=== PATIENT | female | born 1970 | race Caucasian/White ===

== ENCOUNTER 2017-12-07 19:25 | Inpatient (IN) | payer MEDICARE, MEDICAID ==
[~2017-12-07] VITALS: Ht 157.5 cm; Wt 51.7 kg
[~2017-12-07 19:25] MED LIST: DULO30CA38 PO; GABA-532 PO; METO10TA3 PO; OMEP40CA37 PO; ONDA8TAB6 PO; SIMV20TA5 PO; TOPI25TA49 PO; ZIPR20CA2 PO
[2017-12-07] MEDS ORDERED: dexamethasone sod phosphate 10mg/ml inj IM STA (19:34)
[2017-12-07] MEDS ORDERED: proCHLORperazine 10 MG/2 ml inj IV ONE (19:35)
[2017-12-07] MEDS ORDERED: normal saline 1000ML IV soln IVB ONE (19:35)
[2017-12-07 19:53] LABS: BASOPHILS % (AUTO) 0.2 % (0-1); EOSINOPHILS # (AUTO) 0.2 X10'3 (0-0.9); HEMATOCRIT 40.5 % (35.0-45.0); HEMOGLOBIN 13.2 g/dl (12.0-16.0); LYMPHOCYTES # (AUTO) 1.5 X10'3 (1.1-4.8); LYMPHOCYTES % (AUTO) 8.1 % (21-51); MEAN CORPUSCULAR HEMOGLOBIN 28.6 PG (27.0-31.0); MEAN CORPUSCULAR HGB CONC 32.6 % (33.0-36.5); MEAN CORPUSCULAR VOLUME 87.9 FL (78-98); MEAN PLATELET VOLUME 7.6 FL (7.4-10.4); MONOCYTES % (AUTO) 5.4 % (2-12); NEUTROPHILS # (AUTO) 15.3 X10'3 (1.8-7.7); NEUTROPHILS % (AUTO) 85.3 % (42-75); PLATELET COUNT 452 X10'3 (140-440); RED CELL DISTRIBUTION WIDTH 15.5 % (11.5-14.5); WHITE BLOOD COUNT 17.9 X10'3 (4.5-11.0)
[2017-12-07 20:11] LABS: ALANINE AMINOTRANSFERASE 25 U/L (12-78); ALBUMIN 3.7 G/DL (3.4-5.0); ALBUMIN/GLOBULIN RATIO 0.8 (1.1-1.5); ALKALINE PHOSPHATASE 84 IU/L (46-116); ANION GAP 13 (8-16); ASPARTATE AMINO TRANSFERASE 20 U/L (10-37); BILIRUBIN,TOTAL 0.5 MG/DL (0.1-1.0); BLOOD UREA NITROGEN 10 MG/DL (7-18); BUN/CREATININE RATIO 9.8 (6.6-38.0); CALCIUM 9.9 MG/DL (8.5-10.1); CHLORIDE 104 MMOL/L (99-107); CREATININE 1.02 MG/DL (0.40-0.90); ETHANOL < 0.010 GM/DL (0.0-0.010); GLUCOSE 307 MG/DL (70-104); LIPASE 75 U/L (73-393); POTASSIUM 3.9 MMOL/L (3.5-5.1); SODIUM 139 MMOL/L (135-145); TOTAL CARBON DIOXIDE 22.2 MMOL/L (24-32); TOTAL PROTEIN 8.4 G/DL (6.4-8.2); eGFR 59 ML/MIN
[2017-12-07 20:54] LABS: URINE HCG NEGATIVE (NEG)
[2017-12-07 20:55] LABS: CLARITY,URINE Clear (Clear); COLOR,URINE Yellow (Yellow); GLUCOSE, URINE >=1000 mg/dl (Neg); KETONES,URINE 40 mg/dl (Neg); LEUKOCYTE ESTERASE ,URINE Negative (Neg); NITRITES, URINE Negative (Neg); OCCULT BLOOD,URINE Moderate (Neg); PROTEIN,URINE Negative (Neg)
[2017-12-07 20:56] LABS: UA COLLECTION TYPE VOIDED
[2017-12-07 21:03] LABS: URINE AMPHETAMINE SCREEN NEGATIVE (Neg); URINE BARBITUATE SCREEN NEGATIVE (Neg); URINE BENZODIAZEPINES SCREEN NEGATIVE (Neg); URINE CANNABINOID SCREEN POSITIVE (Neg); URINE COCAINE SCREEN NEGATIVE (Neg); URINE METHADONE SCREEN NEGATIVE (Neg); URINE OPIATE SCREEN NEGATIVE (Neg); URINE PHENCYCLIDINE SCREEN NEGATIVE (Neg)
[2017-12-07 21:14] LABS: BACTERIA,URINE NONE SEEN /HPF (Neg); MUCUS STRANDS MANY /LPF (Neg); RBC,URINE 0-2 /HPF (0-2); SQUAMOUS EPITHELIAL CELL,UR FEW /LPF (FEW); WBC,URINE NONE SEEN /HPF (0-4)
[2017-12-07] MEDS ORDERED: metroNIDAZOLE-Flagyl 500mg/NS 100 ML IV STA (21:44)
[2017-12-07] MEDS ORDERED: ondansetron/PF 4mg/2ml inj IV ONE (21:45)
[2017-12-07] MEDS ORDERED: ciprofloxacin/D5W 200mg/100mL 100 ML IV ONE (21:45)
[2017-12-07] MEDS ORDERED: levoFLOXACIN-Levaquin 500mg/D5 100 ML IV ONE (22:25)
[2017-12-07] MEDS ORDERED: mag hydrox/Alum hydrox/simeth 30ml oral suspension PO PRN (23:10)
[2017-12-07] MEDS ORDERED: acetaminophen 325mg tablet PO PRN ×2 (23:10)
[2017-12-07] MEDS ORDERED: magnesium hydroxide 30ml (MOM) UD suspension PO PRN (23:10)
[2017-12-07] MEDS: normal saline 1000ml 1,000 ML IV SCH (23:35)
[2017-12-08 00:30] VITALS: BP 149/71
[2017-12-08] MEDS: metoclopramide 5 mg/ml inj IV PRN ×3 (02:47→18:57)
[2017-12-08 05:22] LABS: BASOPHILS % (AUTO) 0.2 % (0-1); EOSINOPHILS # (AUTO) 0.2 X10'3 (0-0.9); EOSINOPHILS % (AUTO) 1.8 % (0-6); HEMATOCRIT 40.8 % (35.0-45.0); HEMOGLOBIN 13.2 g/dl (12.0-16.0); LYMPHOCYTES # (AUTO) 1.2 X10'3 (1.1-4.8); LYMPHOCYTES % (AUTO) 9.8 % (21-51); MEAN CORPUSCULAR HEMOGLOBIN 28.6 PG (27.0-31.0); MEAN CORPUSCULAR HGB CONC 32.4 % (33.0-36.5); MEAN CORPUSCULAR VOLUME 88.2 FL (78-98); MEAN PLATELET VOLUME 7.9 FL (7.4-10.4); MONOCYTES # (AUTO) 0.1 X10'3 (0-0.9); MONOCYTES % (AUTO) 0.7 % (2-12); NEUTROPHILS # (AUTO) 10.6 X10'3 (1.8-7.7); NEUTROPHILS % (AUTO) 87.5 % (42-75); PLATELET COUNT 372 X10'3 (140-440); RED BLOOD COUNT 4.62 X10'6 (4.20-5.60); RED CELL DISTRIBUTION WIDTH 15.9 % (11.5-14.5); WHITE BLOOD COUNT 12.1 X10'3 (4.5-11.0)
[2017-12-08 05:48] LABS: ALBUMIN 3.8 G/DL (3.4-5.0); ANION GAP 13 (8-16); BLOOD UREA NITROGEN 8 MG/DL (7-18); BUN/CREATININE RATIO 9.3 (6.6-38.0); CALCIUM 9.4 MG/DL (8.5-10.1); CHLORIDE 106 MMOL/L (99-107); CREATININE 0.86 MG/DL (0.40-0.90); GLUCOSE 132 MG/DL (70-104); POTASSIUM 3.7 MMOL/L (3.5-5.1); SODIUM 140 MMOL/L (135-145); TOTAL CARBON DIOXIDE 20.7 MMOL/L (24-32); eGFR 71 ML/MIN
[2017-12-08] MEDS ORDERED: FLU VACC QS2017-18 36MOS UP/PF 60 MCG/0.5 ML SYRINGE IMVAC ONE (06:15)
[2017-12-08 06:44] LABS: HEMOGLOBIN A1C 5.5 % (4.5-6.2)
[2017-12-08] MEDS: ondansetron/PF 4mg/2ml inj IV PRN ×3 (07:56→21:11)
[2017-12-08] MEDS: normal saline 1000ml 1,000 ML IV SCH ×2 (07:57→21:11)
[2017-12-08] MEDS: metroNIDAZOLE-Flagyl 500mg/NS 100 ML IV SCH ×2 (07:57→15:47)
[2017-12-08] MEDS: pantoprazole 40mg Tablet.DR PO SCH (07:57)
[2017-12-08 08:00] VITALS: BP 129/70
[2017-12-08 11:00] VITALS: BP 145/77
[2017-12-08 19:00] VITALS: BP 128/64
[2017-12-08] MEDS: levoFLOXACIN-Levaquin 500mg/D5 100 ML IV SCH (21:25)
[2017-12-09] MEDS: metroNIDAZOLE-Flagyl 500mg/NS 100 ML IV SCH ×4 (00:23→23:40)
[2017-12-09 00:30] VITALS: BP 142/67
[2017-12-09] MEDS: metoclopramide 5 mg/ml inj IV PRN ×4 (00:32→22:21)
[2017-12-09] MEDS: ondansetron/PF 4mg/2ml inj IV PRN ×3 (03:44→17:49)
[2017-12-09] MEDS: HYDROmorphone inj. 0.5 MG/0.5 ML DISP.SYRIN IV PRN ×6 (04:34→22:20)
[2017-12-09] MEDS: normal saline 1000ml 1,000 ML IV SCH (05:09)
[2017-12-09 05:47] LABS: BASOPHILS % (AUTO) 0.2 % (0-1); EOSINOPHILS # (AUTO) 0.3 X10'3 (0-0.9); EOSINOPHILS % (AUTO) 1.3 % (0-6); HEMATOCRIT 33.7 % (35.0-45.0); HEMOGLOBIN 11.1 g/dl (12.0-16.0); LYMPHOCYTES % (AUTO) 15.3 % (21-51); MEAN CORPUSCULAR HGB CONC 32.9 % (33.0-36.5); MEAN CORPUSCULAR VOLUME 88.1 FL (78-98); MEAN PLATELET VOLUME 7.9 FL (7.4-10.4); MONOCYTES # (AUTO) 1.6 X10'3 (0-0.9); MONOCYTES % (AUTO) 8.1 % (2-12); NEUTROPHILS # (AUTO) 14.8 X10'3 (1.8-7.7); NEUTROPHILS % (AUTO) 75.1 % (42-75); PLATELET COUNT 386 X10'3 (140-440); RED BLOOD COUNT 3.82 X10'6 (4.20-5.60); RED CELL DISTRIBUTION WIDTH 15.4 % (11.5-14.5); WHITE BLOOD COUNT 19.7 X10'3 (4.5-11.0)
[2017-12-09 06:09] LABS: ALBUMIN 3.4 G/DL (3.4-5.0); ANION GAP 11 (8-16); BLOOD UREA NITROGEN 6 MG/DL (7-18); CALCIUM 8.9 MG/DL (8.5-10.1); CHLORIDE 107 MMOL/L (99-107); CREATININE 0.75 MG/DL (0.40-0.90); GLUCOSE 120 MG/DL (70-104); SODIUM 141 MMOL/L (135-145); TOTAL CARBON DIOXIDE 23.2 MMOL/L (24-32); eGFR 84 ML/MIN
[2017-12-09 06:33] LABS: POTASSIUM 2.9 MMOL/L (3.5-5.1)
[2017-12-09] MEDS ORDERED: potassium Cl 40MEQ/NS 500ml 500 ML IV PRN ×2 (06:45)
[2017-12-09] MEDS: LACTOBACILLUS RHAMNOSUS GG 15 billion unit sprinkle caps PO SCH (06:54)
[2017-12-09] MEDS: pantoprazole 40mg Tablet.DR PO SCH (06:54)
[2017-12-09] MEDS: K and/or MAG REPLACEMENT MC SCH (07:02)
[2017-12-09] MEDS ORDERED: POTASSIUM CL IV PRN (07:20)
[2017-12-09] MEDS ORDERED: [UNRECOGNIZED DRUG - OTHER] IV PRN (07:20)
[2017-12-09] MEDS ORDERED: LIDOCAINE 1% IV PRN (07:20)
[2017-12-09 08:05] VITALS: BP 137/74
[2017-12-09] MEDS: POTASSIUM CL IV PRN ×2 (10:59→15:28)
[2017-12-09] MEDS: [UNRECOGNIZED DRUG - OTHER] IV PRN ×2 (10:59→15:28)
[2017-12-09] MEDS: LIDOCAINE 1% IV PRN ×2 (10:59→15:28)
[2017-12-09 11:49] VITALS: BP_SYST 108; BP_SYST 155; BP_DIAS 60; BP_DIAS 91
[2017-12-09] MEDS: potassium Cl 20mEq in NS 1,000 ML IV SCH (13:01)
[2017-12-09 20:00] VITALS: BP 102/68
[2017-12-09] MEDS: levoFLOXACIN-Levaquin 500mg/D5 100 ML IV SCH (20:00)
[2017-12-10] VITALS: BP 161/81
[2017-12-10] MEDS: ondansetron/PF 4mg/2ml inj IV PRN ×2 (01:15→09:57)
[2017-12-10 02:05] LABS: BASOPHILS % (AUTO) 0.2 % (0-1); EOSINOPHILS # (AUTO) 0.2 X10'3 (0-0.9); EOSINOPHILS % (AUTO) 1.3 % (0-6); HEMATOCRIT 34.3 % (35.0-45.0); HEMOGLOBIN 11.1 g/dl (12.0-16.0); LYMPHOCYTES # (AUTO) 1.5 X10'3 (1.1-4.8); LYMPHOCYTES % (AUTO) 11.1 % (21-51); MEAN CORPUSCULAR HEMOGLOBIN 28.5 PG (27.0-31.0); MEAN CORPUSCULAR HGB CONC 32.4 % (33.0-36.5); MEAN CORPUSCULAR VOLUME 87.8 FL (78-98); MEAN PLATELET VOLUME 7.8 FL (7.4-10.4); MONOCYTES # (AUTO) 0.7 X10'3 (0-0.9); MONOCYTES % (AUTO) 5.2 % (2-12); NEUTROPHILS # (AUTO) 11.3 X10'3 (1.8-7.7); NEUTROPHILS % (AUTO) 82.2 % (42-75); PLATELET COUNT 304 X10'3 (140-440); RED BLOOD COUNT 3.91 X10'6 (4.20-5.60); RED CELL DISTRIBUTION WIDTH 15.7 % (11.5-14.5); WHITE BLOOD COUNT 13.8 X10'3 (4.5-11.0)
[2017-12-10 02:12] LABS: ALBUMIN 3.4 G/DL (3.4-5.0); ANION GAP 11 (8-16); BLOOD UREA NITROGEN 5 MG/DL (7-18); BUN/CREATININE RATIO 7.1 (6.6-38.0); CALCIUM 8.6 MG/DL (8.5-10.1); CHLORIDE 105 MMOL/L (99-107); GLUCOSE 107 MG/DL (70-104); POTASSIUM 3.7 MMOL/L (3.5-5.1); SODIUM 139 MMOL/L (135-145); TOTAL CARBON DIOXIDE 22.7 MMOL/L (24-32); eGFR 90 ML/MIN
[2017-12-10] MEDS: metoclopramide 5 mg/ml inj IV PRN ×2 (05:09→14:59)
[2017-12-10 07:53] VITALS: BP 136/72
[2017-12-10] MEDS: K and/or MAG REPLACEMENT MC SCH (08:00)
[2017-12-10] MEDS: potassium Cl 20mEq in NS 1,000 ML IV SCH ×3 (08:24→23:56)
[2017-12-10] MEDS: metroNIDAZOLE-Flagyl 500mg/NS 100 ML IV SCH ×3 (08:24→23:55)
[2017-12-10] MEDS ORDERED: FLU VACC QS2017-18 36MOS UP/PF 60 MCG/0.5 ML SYRINGE IMVAC ONE (09:00)
[2017-12-10] MEDS: HYDROmorphone inj. 0.5 MG/0.5 ML DISP.SYRIN IV PRN ×3 (10:00→22:06)
[2017-12-10] MEDS: pantoprazole 40mg Tablet.DR PO SCH (10:00)
[2017-12-10] MEDS: LACTOBACILLUS RHAMNOSUS GG 15 billion unit sprinkle caps PO SCH (10:00)
[2017-12-10 11:00] VITALS: BP 106/65
[2017-12-10] MEDS: gabapentin 300mg capsule PO SCH ×2 (13:39→21:47)
[2017-12-10] MEDS ORDERED: neostigmine methylsulfate 1 MG/ML 10ml vial IV ONE (18:15)
[2017-12-10] MEDS: topiramate 25mg tablet PO SCH (19:59)
[2017-12-10 20:00] VITALS: BP 137/76
[2017-12-10] MEDS: metoclopramide 5 mg/ml inj IV SCH (20:14)
[2017-12-10] MEDS: levoFLOXACIN-Levaquin 500mg/D5 100 ML IV SCH (21:48)
[2017-12-11 00:11] VITALS: BP 104/64
[2017-12-11] MEDS: ondansetron/PF 4mg/2ml inj IV PRN ×2 (00:21→09:30)
[2017-12-11] MEDS: HYDROmorphone inj. 0.5 MG/0.5 ML DISP.SYRIN IV PRN ×2 (00:58→20:57)
[2017-12-11] MEDS: potassium Cl 20mEq in NS 1,000 ML IV SCH ×2 (01:20→13:03)
[2017-12-11] MEDS: metoclopramide 5 mg/ml inj IV SCH ×2 (02:17→07:32)
[2017-12-11 05:28] LABS: ALBUMIN 3.4 G/DL (3.4-5.0); ANION GAP 11 (8-16); BLOOD UREA NITROGEN 6 MG/DL (7-18); BUN/CREATININE RATIO 7.5 (6.6-38.0); CALCIUM 8.8 MG/DL (8.5-10.1); CHLORIDE 104 MMOL/L (99-107); GLUCOSE 70 MG/DL (70-104); POTASSIUM 3.5 MMOL/L (3.5-5.1); SODIUM 140 MMOL/L (135-145); TOTAL CARBON DIOXIDE 24.6 MMOL/L (24-32); eGFR 78 ML/MIN
[2017-12-11 05:33] LABS: BASOPHILS # (AUTO) 0.1 X10'3 (0-0.2); BASOPHILS % (AUTO) 0.5 % (0-1); EOSINOPHILS # (AUTO) 0.2 X10'3 (0-0.9); EOSINOPHILS % (AUTO) 1.3 % (0-6); HEMATOCRIT 35.8 % (35.0-45.0); HEMOGLOBIN 11.6 g/dl (12.0-16.0); MEAN CORPUSCULAR HEMOGLOBIN 28.7 PG (27.0-31.0); MEAN CORPUSCULAR HGB CONC 32.3 % (33.0-36.5); MEAN CORPUSCULAR VOLUME 88.8 FL (78-98); MEAN PLATELET VOLUME 7.5 FL (7.4-10.4); MONOCYTES # (AUTO) 0.9 X10'3 (0-0.9); MONOCYTES % (AUTO) 7.1 % (2-12); NEUTROPHILS # (AUTO) 8.9 X10'3 (1.8-7.7); NEUTROPHILS % (AUTO) 68.1 % (42-75); PLATELET COUNT 382 X10'3 (140-440); RED BLOOD COUNT 4.03 X10'6 (4.20-5.60); RED CELL DISTRIBUTION WIDTH 15.3 % (11.5-14.5)
[2017-12-11] MEDS: pantoprazole 40mg Tablet.DR PO SCH (07:32)
[2017-12-11] MEDS: LACTOBACILLUS RHAMNOSUS GG 15 billion unit sprinkle caps PO SCH (07:32)
[2017-12-11] MEDS: metroNIDAZOLE-Flagyl 500mg/NS 100 ML IV SCH ×2 (07:32→16:49)
[2017-12-11] MEDS: duloxetine 30mg CAPSULE.DR PO SCH (07:33)
[2017-12-11] MEDS: topiramate 25mg tablet PO SCH ×2 (07:33→19:30)
[2017-12-11] MEDS: gabapentin 300mg capsule PO SCH ×3 (07:33→21:07)
[2017-12-11] MEDS: K and/or MAG REPLACEMENT MC SCH (07:44)
[2017-12-11 07:52] VITALS: BP 94/62
[2017-12-11 12:30] VITALS: BP 141/76
[2017-12-11] MEDS: proCHLORperazine 10 MG/2 ml inj IV PRN ×2 (13:02→19:20)
[2017-12-11] MEDS ORDERED: proCHLORperazine 10 MG/2 ml inj IV SCH (14:00)
[2017-12-11] MEDS ORDERED: proCHLORperazine 10 MG/2 ml inj IV PRN (14:00)
[2017-12-11] MEDS: metoclopramide 10mg tablet PO SCH ×2 (16:49→21:07)
[2017-12-11 20:00] VITALS: BP 112/65
[2017-12-11] MEDS: levoFLOXACIN-Levaquin 500mg/D5 100 ML IV SCH (21:04)
[2017-12-12] VITALS: BP 99/60
[2017-12-12] MEDS: metroNIDAZOLE-Flagyl 500mg/NS 100 ML IV SCH ×2 (00:25→07:40)
[2017-12-12] MEDS: potassium Cl 20mEq in NS 1,000 ML IV SCH ×3 (05:21→17:20)
[2017-12-12 06:32] LABS: BASOPHILS # (AUTO) 0.1 X10'3 (0-0.2); BASOPHILS % (AUTO) 0.9 % (0-1); EOSINOPHILS # (AUTO) 0.2 X10'3 (0-0.9); EOSINOPHILS % (AUTO) 2.6 % (0-6); HEMATOCRIT 30.8 % (35.0-45.0); HEMOGLOBIN 10.4 g/dl (12.0-16.0); LYMPHOCYTES # (AUTO) 2.6 X10'3 (1.1-4.8); LYMPHOCYTES % (AUTO) 40.3 % (21-51); MEAN CORPUSCULAR HEMOGLOBIN 29.4 PG (27.0-31.0); MEAN CORPUSCULAR VOLUME 86.5 FL (78-98); MEAN PLATELET VOLUME 7.8 FL (7.4-10.4); MONOCYTES # (AUTO) 0.7 X10'3 (0-0.9); MONOCYTES % (AUTO) 10.6 % (2-12); NEUTROPHILS % (AUTO) 45.6 % (42-75); PLATELET COUNT 321 X10'3 (140-440); RED BLOOD COUNT 3.55 X10'6 (4.20-5.60); RED CELL DISTRIBUTION WIDTH 14.5 % (11.5-14.5); WHITE BLOOD COUNT 6.6 X10'3 (4.5-11.0)
[2017-12-12 06:46] LABS: ALBUMIN 2.7 G/DL (3.4-5.0); ANION GAP 11 (8-16); BLOOD UREA NITROGEN 5 MG/DL (7-18); BUN/CREATININE RATIO 6.3 (6.6-38.0); CALCIUM 8.5 MG/DL (8.5-10.1); CHLORIDE 109 MMOL/L (99-107); GLUCOSE 77 MG/DL (70-104); POTASSIUM 3.3 MMOL/L (3.5-5.1); SODIUM 142 MMOL/L (135-145); TOTAL CARBON DIOXIDE 22.1 MMOL/L (24-32); eGFR 78 ML/MIN
[2017-12-12 07:00] VITALS: BP 104/61
[2017-12-12] MEDS: LACTOBACILLUS RHAMNOSUS GG 15 billion unit sprinkle caps PO SCH (07:41)
[2017-12-12] MEDS: duloxetine 30mg CAPSULE.DR PO SCH (07:41)
[2017-12-12] MEDS: gabapentin 300mg capsule PO SCH ×3 (07:41→20:59)
[2017-12-12] MEDS: metoclopramide 10mg tablet PO SCH ×4 (07:41→20:59)
[2017-12-12] MEDS: topiramate 25mg tablet PO SCH ×2 (07:41→19:52)
[2017-12-12] MEDS: pantoprazole 40mg Tablet.DR PO SCH (07:41)
[2017-12-12] MEDS: K and/or MAG REPLACEMENT MC SCH (07:42)
[2017-12-12] MEDS: HYDROmorphone inj. 0.5 MG/0.5 ML DISP.SYRIN IV PRN ×4 (07:48→22:16)
[2017-12-12 11:04] VITALS: BP 93/56
[2017-12-12] MEDS ORDERED: magnesium 4gm in 100ml NS 100 ML IV PRN (14:00)
[2017-12-12] MEDS ORDERED: magnesium Cl slow-release 64mg tablet PO PRN (14:00)
[2017-12-12] MEDS ORDERED: potassium Cl 40MEQ/NS 500ml 500 ML IV PRN ×2 (14:00)
[2017-12-12] MEDS ORDERED: potassium Cl 20 mEq SR tablet PO PRN (14:00)
[2017-12-12] MEDS ORDERED: magnesium 2GM in 50ml NS 50 ML IV PRN (14:00)
[2017-12-12] MEDS: levoFLOXACIN 500mg tablet PO SCH (15:18)
[2017-12-12] MEDS: potassium Cl 20 mEq SR tablet PO PRN ×2 (15:18→19:52)
[2017-12-12] MEDS: metroNIDAZOLE 500mg tablet PO SCH (16:47)
[2017-12-12 18:00] VITALS: BP 91/55
[2017-12-13] VITALS: BP 97/59
[2017-12-13] MEDS: metroNIDAZOLE 500mg tablet PO SCH ×2 (01:16→08:16)
[2017-12-13] MEDS: potassium Cl 20 mEq SR tablet PO PRN (01:16)
[2017-12-13] MEDS: HYDROmorphone inj. 0.5 MG/0.5 ML DISP.SYRIN IV PRN ×3 (01:20→11:16)
[2017-12-13] MEDS: potassium Cl 20mEq in NS 1,000 ML IV SCH (05:17)
[2017-12-13 06:13] LABS: MAGNESIUM 1.8 MG/DL (1.5-2.4); POTASSIUM 4.1 MMOL/L (3.5-5.1)
[2017-12-13 07:00] VITALS: BP 91/51
[2017-12-13] MEDS: K and/or MAG REPLACEMENT MC SCH (08:00)
[2017-12-13] MEDS: gabapentin 300mg capsule PO SCH (08:16)
[2017-12-13] MEDS: pantoprazole 40mg Tablet.DR PO SCH (08:16)
[2017-12-13] MEDS: LACTOBACILLUS RHAMNOSUS GG 15 billion unit sprinkle caps PO SCH (08:16)
[2017-12-13] MEDS: metoclopramide 10mg tablet PO SCH ×2 (08:17→11:23)
[2017-12-13] MEDS: duloxetine 30mg CAPSULE.DR PO SCH (08:17)
[2017-12-13] MEDS: topiramate 25mg tablet PO SCH (08:17)
[2017-12-13] MEDS ORDERED: METO10TA3 PO (10:40)
[2017-12-13 11:00] VITALS: BP 94/52
[2017-12-13] MEDS ORDERED: levoFLOXACIN 500mg tablet PO SCH (11:00)
[2017-12-13] MEDS: levoFLOXACIN 500mg tablet PO SCH (11:16)
== END 2017-12-13 13:00 | disposition home or self-care (01) | DRG 682 ==
LOC: ER 19:26 → ED HOLD 23:09 → SUR 3N 12-08 00:03
PROVIDERS: ADMIT Internal Medicine; ATTEND Family Medicine
DX: N17.9 Acute kidney failure, unspecified (principal); R65.11 Systemic inflammatory response syndrome (SIRS) of non-infectious origin with acute organ dysfunction; K56.7 Ileus, unspecified; K31.84 Gastroparesis; K52.9 Noninfective gastroenteritis and colitis, unspecified; K21.9 Gastro-esophageal reflux disease without esophagitis; E78.00 Pure hypercholesterolemia, unspecified; F41.9 Anxiety disorder, unspecified; G43.909 Migraine, unspecified, not intractable, without status migrainosus; E16.2 Hypoglycemia, unspecified; M54.9 Dorsalgia, unspecified; E78.5 Hyperlipidemia, unspecified; E86.0 Dehydration; E87.6 Hypokalemia; F32.9 Major depressive disorder, single episode, unspecified; G89.29 Other chronic pain; I25.10 Atherosclerotic heart disease of native coronary artery without angina pectoris; J45.909 Unspecified asthma, uncomplicated; F12.90 Cannabis use, unspecified, uncomplicated; Z72.0 Tobacco use; Z90.49 Acquired absence of other specified parts of digestive tract; Z98.51 Tubal ligation status; Z79.899 Other long term (current) drug therapy; Z88.6 Allergy status to analgesic agent; Z88.5 Allergy status to narcotic agent; Z88.8 Allergy status to other drugs, medicaments and biological substances; Z82.3 Family history of stroke; Z82.49 Family history of ischemic heart disease and other diseases of the circulatory system; Z23 Encounter for immunization
CPT/HCPCS: 36415; 74176; 80048; 80053; 80305; 80320; 81001; 81025; 83036; 83605; 83690; 83735; 84132; 85025; 87040; 87070; 96361; 96365; 96368; 96372; 96375; 99285; A6258; A6449; J0744; J0780; J1100; J1170; J1956; J2270; J2405; J2710; J2765; J3480; J3490; J7030; J8597; Q2037

== ENCOUNTER 2018-08-18 16:28 | Emergency (ER) | payer MEDICARE, MEDICAID ==
[~2018-08-18] VITALS: Ht 154.9 cm; Wt 58.0 kg
[~2018-08-18 16:28] MED LIST changes: +FERR134T2 PO; -OMEP40CA37 PO; +ONDA4TAB6 PO; +PANT-47 PO; +SCOP1PAT16 TD; -ZIPR20CA2 PO
[2018-08-18 16:54] LABS: BASOPHILS % (AUTO) 0.3 % (0-1); EOSINOPHILS # (AUTO) 0.3 X10'3 (0-0.9); EOSINOPHILS % (AUTO) 2.5 % (0-6); HEMATOCRIT 42.4 % (35.0-45.0); HEMOGLOBIN 14.3 g/dl (12.0-16.0); LYMPHOCYTES # (AUTO) 2.3 X10'3 (1.1-4.8); LYMPHOCYTES % (AUTO) 17.2 % (21-51); MEAN CORPUSCULAR HEMOGLOBIN 30.8 PG (27.0-31.0); MEAN CORPUSCULAR HGB CONC 33.7 % (33.0-36.5); MEAN CORPUSCULAR VOLUME 91.4 FL (78-98); MEAN PLATELET VOLUME 7.3 FL (7.4-10.4); MONOCYTES # (AUTO) 0.8 X10'3 (0-0.9); MONOCYTES % (AUTO) 6.2 % (2-12); NEUTROPHILS # (AUTO) 9.8 X10'3 (1.8-7.7); NEUTROPHILS % (AUTO) 73.8 % (42-75); PLATELET COUNT 343 X10'3 (140-440); RED BLOOD COUNT 4.64 X10'6 (4.20-5.60); RED CELL DISTRIBUTION WIDTH 13.3 % (11.5-14.5); WHITE BLOOD COUNT 13.3 X10'3 (4.5-11.0)
[2018-08-18] MEDS ORDERED: diphenhydrAMINE 50 mg/ml inj IV ONE (17:00)
[2018-08-18] MEDS ORDERED: ondansetron/PF 4mg/2ml inj IV ONE (17:00)
[2018-08-18] MEDS ORDERED: haloperidol lactate 5mg/ml inj IM ONE (17:00)
[2018-08-18] MEDS ORDERED: normal saline 1000ML IV soln IVB ONE (17:00)
[2018-08-18 17:03] LABS: PROTHROMBIN TIME 10.2 SECONDS (9.0-12.0)
[2018-08-18 17:07] LABS: ALANINE AMINOTRANSFERASE 20 U/L (12-78); ALBUMIN 3.9 G/DL (3.4-5.0); ALKALINE PHOSPHATASE 72 IU/L (46-116); ANION GAP 16 (8-16); ASPARTATE AMINO TRANSFERASE 15 U/L (10-37); BILIRUBIN,TOTAL 0.4 MG/DL (0.1-1.0); BLOOD UREA NITROGEN 13 MG/DL (7-18); BUN/CREATININE RATIO 15.1 (6.6-38.0); CHLORIDE 104 MMOL/L (99-107); CREATININE 0.86 MG/DL (0.40-0.90); GLUCOSE 105 MG/DL (70-104); LIPASE 92 U/L (73-393); POTASSIUM 3.4 MMOL/L (3.5-5.1); SODIUM 141 MMOL/L (135-145); TOTAL CARBON DIOXIDE 21.3 MMOL/L (24-32); TOTAL PROTEIN 7.9 G/DL (6.4-8.2); eGFR 71 ML/MIN
[2018-08-18 17:56] VITALS: BP 119/68
[2018-08-18 18:42] LABS: CLARITY,URINE SLIGHTLY CLOUDY (Clear); GLUCOSE, URINE NEGATIVE (Neg); KETONES,URINE 15 mg/dl (Neg); LEUKOCYTE ESTERASE ,URINE NEGATIVE (Neg); NITRITES, URINE NEGATIVE (Neg); OCCULT BLOOD,URINE SMALL (Neg); PH,URINE 5.5 (4.8-8.0); PROTEIN,URINE TRACE mg/dl (Neg); URINE HCG NEGATIVE (NEG); UROBILINOGEN,URINE 0.2 E.U/dL (0.2-1.0)
[2018-08-18 18:46] LABS: COLOR,URINE DARK YELLOW (Yellow); UA COLLECTION TYPE CLN CATCH MIDSTREAM
[2018-08-18 18:51] LABS: WBC,URINE 0-4 /HPF (0-4)
[2018-08-18 18:52] LABS: BACTERIA,URINE 1+ /HPF (Neg); MUCUS STRANDS MANY /LPF (Neg); SQUAMOUS EPITHELIAL CELL,UR MANY /LPF (FEW)
[2018-08-18 18:53] LABS: HYALINE CASTS 0-3 /LPF (NEGATIVE)
== END 2018-08-18 19:46 | disposition home or self-care (01) ==
LOC: ER 16:28
DX: K31.84 Gastroparesis (principal); R11.2 Nausea with vomiting, unspecified; E11.43 Type 2 diabetes mellitus with diabetic autonomic (poly)neuropathy; G43.909 Migraine, unspecified, not intractable, without status migrainosus; E78.00 Pure hypercholesterolemia, unspecified; J45.909 Unspecified asthma, uncomplicated; G89.29 Other chronic pain; F12.90 Cannabis use, unspecified, uncomplicated; Z90.49 Acquired absence of other specified parts of digestive tract; Z98.890 Other specified postprocedural states; Z98.51 Tubal ligation status; Z88.6 Allergy status to analgesic agent; Z88.8 Allergy status to other drugs, medicaments and biological substances; Z79.899 Other long term (current) drug therapy
CPT/HCPCS: 36415; 80053; 81001; 81025; 83690; 85025; 85610; 96361; 96372; 96374; 96375; 99285; J1200; J1630; J2405; J7030

== ENCOUNTER 2018-09-21 15:04 | Emergency (ER) | payer MEDICARE, MEDICAID ==
[~2018-09-21] VITALS: Ht 154.9 cm; Wt 58.2 kg
[2018-09-21] MEDS ORDERED: ondansetron/PF 4mg/2ml inj IV ONE (15:15)
[2018-09-21] MEDS ORDERED: normal saline 1000ML IV soln IVB ONE (15:15)
[2018-09-21] MEDS ORDERED: metoclopramide 5 mg/ml inj IV ONE (15:15)
[2018-09-21 15:56] LABS: BASOPHILS % (AUTO) 0.4 % (0-1); EOSINOPHILS # (AUTO) 0.2 X10'3 (0-0.9); EOSINOPHILS % (AUTO) 1.9 % (0-6); HEMATOCRIT 41.4 % (35.0-45.0); HEMOGLOBIN 13.5 g/dl (12.0-16.0); LYMPHOCYTES # (AUTO) 2.1 X10'3 (1.1-4.8); LYMPHOCYTES % (AUTO) 18.9 % (21-51); MEAN CORPUSCULAR HEMOGLOBIN 30.1 PG (27.0-31.0); MEAN CORPUSCULAR HGB CONC 32.7 % (33.0-36.5); MEAN CORPUSCULAR VOLUME 91.9 FL (78-98); MEAN PLATELET VOLUME 7.5 FL (7.4-10.4); MONOCYTES # (AUTO) 0.6 X10'3 (0-0.9); MONOCYTES % (AUTO) 5.1 % (2-12); NEUTROPHILS # (AUTO) 8.1 X10'3 (1.8-7.7); NEUTROPHILS % (AUTO) 73.7 % (42-75); PLATELET COUNT 322 X10'3 (140-440)
[2018-09-21 16:18] LABS: ALANINE AMINOTRANSFERASE 15 U/L (12-78); ALBUMIN 3.7 G/DL (3.4-5.0); ALBUMIN/GLOBULIN RATIO 0.9 (1.1-1.5); ALKALINE PHOSPHATASE 71 IU/L (46-116); ANION GAP 13 (8-16); ASPARTATE AMINO TRANSFERASE 15 U/L (10-37); BILIRUBIN,TOTAL 0.4 MG/DL (0.1-1.0); BLOOD UREA NITROGEN 10 MG/DL (7-18); BUN/CREATININE RATIO 11.8 (6.6-38.0); CHLORIDE 108 MMOL/L (99-107); CREATININE 0.85 MG/DL (0.40-0.90); GLUCOSE 98 MG/DL (70-104); LIPASE 84 U/L (73-393); POTASSIUM 3.3 MMOL/L (3.5-5.1); SODIUM 141 MMOL/L (135-145); TOTAL CARBON DIOXIDE 20.5 MMOL/L (24-32); TOTAL PROTEIN 7.7 G/DL (6.4-8.2); eGFR 72 ML/MIN
[2018-09-21 16:36] LABS: CLARITY,URINE SLIGHTLY CLOUDY (Clear); COLOR,URINE YELLOW (Yellow); GLUCOSE, URINE NEGATIVE (Neg); KETONES,URINE 40 mg/dl (Neg); LEUKOCYTE ESTERASE ,URINE NEGATIVE (Neg); NITRITES, URINE NEGATIVE (Neg); OCCULT BLOOD,URINE MODERATE (Neg); PROTEIN,URINE TRACE mg/dl (Neg); UA COLLECTION TYPE CLN CATCH MIDSTREAM; UROBILINOGEN,URINE 0.2 E.U/dL (0.2-1.0)
[2018-09-21 16:41] LABS: MUCUS STRANDS MANY /LPF (Neg); SQUAMOUS EPITHELIAL CELL,UR MANY /LPF (FEW)
[2018-09-21 16:42] LABS: TRANSITIONAL EPI CELLS,URINE FEW /HPF
[2018-09-21 16:43] LABS: BACTERIA,URINE 2+ /HPF (Neg); WBC,URINE 0-4 /HPF (0-4)
[2018-09-21] MEDS ORDERED: morphine 4 MG/ML inj SYRINge IV ONE (17:05)
[2018-09-21 17:33] VITALS: BP 113/71
== END 2018-09-21 17:35 | disposition home or self-care (01) ==
LOC: ER 15:05
DX: E86.0 Dehydration (principal); E11.43 Type 2 diabetes mellitus with diabetic autonomic (poly)neuropathy; K31.84 Gastroparesis; R11.2 Nausea with vomiting, unspecified; R19.7 Diarrhea, unspecified; E78.00 Pure hypercholesterolemia, unspecified; J45.909 Unspecified asthma, uncomplicated; G43.909 Migraine, unspecified, not intractable, without status migrainosus; G89.29 Other chronic pain; Z90.49 Acquired absence of other specified parts of digestive tract; F12.90 Cannabis use, unspecified, uncomplicated; Z88.6 Allergy status to analgesic agent; Z88.8 Allergy status to other drugs, medicaments and biological substances; Z79.899 Other long term (current) drug therapy
CPT/HCPCS: 36415; 80053; 81001; 83690; 85025; 96361; 96374; 96375; 99284; J2270; J2405; J2765

== ENCOUNTER 2018-09-23 08:02 | Emergency (ER) | payer MEDICARE, MEDICAID ==
[~2018-09-23] VITALS: Ht 154.9 cm; Wt 59.0 kg
[2018-09-23] MEDS ORDERED: ondansetron/PF 4mg/2ml inj IV ONE (08:15)
[2018-09-23] MEDS ORDERED: normal saline 1000ML IV soln IVB ONE (08:15)
[2018-09-23] MEDS ORDERED: metoclopramide 5 mg/ml inj IV ONE (08:35)
[2018-09-23 08:40] LABS: URINE HCG NEGATIVE (NEG)
[2018-09-23 08:41] LABS: CLARITY,URINE SLIGHTLY CLOUDY (Clear); COLOR,URINE YELLOW (Yellow); GLUCOSE, URINE NEGATIVE (Neg); KETONES,URINE >=80 mg/dl (Neg); LEUKOCYTE ESTERASE ,URINE NEGATIVE (Neg); NITRITES, URINE NEGATIVE (Neg); OCCULT BLOOD,URINE MODERATE (Neg); PH,URINE 5.5 (4.8-8.0); PROTEIN,URINE TRACE mg/dl (Neg); UA COLLECTION TYPE VOIDED; UROBILINOGEN,URINE 0.2 E.U/dL (0.2-1.0)
[2018-09-23 08:50] LABS: WBC,URINE 0-4 /HPF (0-4)
[2018-09-23 08:50] LABS: BASOPHILS % (AUTO) 0.2 % (0-1); EOSINOPHILS # (AUTO) 0.2 X10'3 (0-0.9); EOSINOPHILS % (AUTO) 1.1 % (0-6); HEMATOCRIT 42.3 % (35.0-45.0); HEMOGLOBIN 13.6 g/dl (12.0-16.0); LYMPHOCYTES # (AUTO) 2.3 X10'3 (1.1-4.8); LYMPHOCYTES % (AUTO) 13.3 % (21-51); MEAN CORPUSCULAR HEMOGLOBIN 29.5 PG (27.0-31.0); MEAN CORPUSCULAR HGB CONC 32.2 % (33.0-36.5); MEAN CORPUSCULAR VOLUME 91.6 FL (78-98); MEAN PLATELET VOLUME 7.5 FL (7.4-10.4); MONOCYTES # (AUTO) 0.8 X10'3 (0-0.9); MONOCYTES % (AUTO) 4.7 % (2-12); NEUTROPHILS # (AUTO) 13.6 X10'3 (1.8-7.7); NEUTROPHILS % (AUTO) 80.7 % (42-75); PLATELET COUNT 333 X10'3 (140-440); RED BLOOD COUNT 4.62 X10'6 (4.20-5.60); RED CELL DISTRIBUTION WIDTH 13.7 % (11.5-14.5); WHITE BLOOD COUNT 16.9 X10'3 (4.5-11.0)
[2018-09-23 08:51] LABS: RBC,URINE 0-2 /HPF (0-2)
[2018-09-23 08:52] LABS: MUCUS STRANDS MANY /LPF (Neg); SQUAMOUS EPITHELIAL CELL,UR MANY /LPF (FEW)
[2018-09-23 08:53] LABS: HYALINE CASTS 0-3 /LPF (NEGATIVE); TRANSITIONAL EPI CELLS,URINE FEW /HPF
[2018-09-23 08:54] LABS: BACTERIA,URINE 2+ /HPF (Neg)
[2018-09-23 09:05] LABS: PROTHROMBIN TIME 10.5 SECONDS (9.0-12.0)
[2018-09-23 09:08] LABS: ALANINE AMINOTRANSFERASE 17 U/L (12-78); ALBUMIN 3.8 G/DL (3.4-5.0); ALKALINE PHOSPHATASE 67 IU/L (46-116); ANION GAP 15 (8-16); ASPARTATE AMINO TRANSFERASE 20 U/L (10-37); BILIRUBIN,TOTAL 0.6 MG/DL (0.1-1.0); BLOOD UREA NITROGEN 11 MG/DL (7-18); BUN/CREATININE RATIO 13.6 (6.6-38.0); CHLORIDE 107 MMOL/L (99-107); CREATININE 0.81 MG/DL (0.40-0.90); GLUCOSE 91 MG/DL (70-104); LIPASE 91 U/L (73-393); POTASSIUM 3.4 MMOL/L (3.5-5.1); SODIUM 140 MMOL/L (135-145); TOTAL CARBON DIOXIDE 17.8 MMOL/L (24-32); TOTAL PROTEIN 7.7 G/DL (6.4-8.2); eGFR 76 ML/MIN
[2018-09-23] MEDS ORDERED: haloperidol lactate 5mg/ml inj IM ONE (09:15)
[2018-09-23] MEDS ORDERED: diphenhydrAMINE 50 mg/ml inj IV ONE (09:15)
[2018-09-23] MEDS ORDERED: PHE25R PR (10:42)
[2018-09-23 10:55] VITALS: BP 102/58
== END 2018-09-23 10:59 | disposition home or self-care (01) ==
LOC: ER 08:02
DX: E11.43 Type 2 diabetes mellitus with diabetic autonomic (poly)neuropathy (principal); K31.84 Gastroparesis; R11.2 Nausea with vomiting, unspecified; R10.10 Upper abdominal pain, unspecified; G43.909 Migraine, unspecified, not intractable, without status migrainosus; E78.00 Pure hypercholesterolemia, unspecified; J45.909 Unspecified asthma, uncomplicated; G89.29 Other chronic pain; F12.90 Cannabis use, unspecified, uncomplicated; Z90.49 Acquired absence of other specified parts of digestive tract; Z98.51 Tubal ligation status; Z98.890 Other specified postprocedural states; Z88.6 Allergy status to analgesic agent; Z88.8 Allergy status to other drugs, medicaments and biological substances; Z79.899 Other long term (current) drug therapy
CPT/HCPCS: 36415; 80053; 81001; 81025; 83690; 85025; 85610; 96372; 96374; 96375; 99284; J1200; J1630; J2405; J2765; J7030; 96361

== ENCOUNTER 2018-10-28 13:20 | Emergency (ER) | payer MEDICARE, MEDICAID ==
[~2018-10-28] VITALS: Ht 154.9 cm; Wt 57.4 kg
[~2018-10-28 13:20] MED LIST changes: +PHE25R PR
[2018-10-28 14:07] LABS: URINE HCG NEGATIVE (NEG)
[2018-10-28 14:10] LABS: CLARITY,URINE CLOUDY (Clear); COLOR,URINE YELLOW (Yellow); GLUCOSE, URINE NEGATIVE (Neg); KETONES,URINE >=80 mg/dl (Neg); LEUKOCYTE ESTERASE ,URINE NEGATIVE (Neg); NITRITES, URINE NEGATIVE (Neg); OCCULT BLOOD,URINE LARGE (Neg); PH,URINE 5.5 (4.8-8.0); PROTEIN,URINE TRACE mg/dl (Neg); UROBILINOGEN,URINE 0.2 E.U/dL (0.2-1.0)
[2018-10-28 14:11] LABS: UA COLLECTION TYPE CLN CATCH MIDSTREAM
[2018-10-28 14:14] LABS: BASOPHILS # (AUTO) 0.1 X10'3 (0-0.2); BASOPHILS % (AUTO) 0.6 % (0-1); EOSINOPHILS # (AUTO) 0.2 X10'3 (0-0.9); EOSINOPHILS % (AUTO) 1.7 % (0-6); HEMATOCRIT 45.7 % (35.0-45.0); LYMPHOCYTES # (AUTO) 2.2 X10'3 (1.1-4.8); LYMPHOCYTES % (AUTO) 21.7 % (21-51); MEAN CORPUSCULAR HEMOGLOBIN 29.9 PG (27.0-31.0); MEAN CORPUSCULAR HGB CONC 32.8 % (33.0-36.5); MEAN CORPUSCULAR VOLUME 91.4 FL (78-98); MEAN PLATELET VOLUME 7.5 FL (7.4-10.4); MONOCYTES # (AUTO) 0.6 X10'3 (0-0.9); MONOCYTES % (AUTO) 5.7 % (2-12); NEUTROPHILS % (AUTO) 70.3 % (42-75); PLATELET COUNT 353 X10'3 (140-440); RED CELL DISTRIBUTION WIDTH 13.8 % (11.5-14.5)
[2018-10-28 14:19] LABS: MUCUS STRANDS MANY /LPF (Neg); SQUAMOUS EPITHELIAL CELL,UR MANY /LPF (FEW)
[2018-10-28 14:20] LABS: BACTERIA,URINE 1+ /HPF (Neg); RBC,URINE 0-2 /HPF (0-2); WBC,URINE 0-4 /HPF (0-4)
[2018-10-28 14:32] LABS: ALANINE AMINOTRANSFERASE 17 U/L (12-78); ALBUMIN 4.4 G/DL (3.4-5.0); ALKALINE PHOSPHATASE 84 IU/L (46-116); ANION GAP 18 (8-16); ASPARTATE AMINO TRANSFERASE 17 U/L (10-37); BILIRUBIN,TOTAL 0.5 MG/DL (0.1-1.0); BLOOD UREA NITROGEN 12 MG/DL (7-18); BUN/CREATININE RATIO 13.3 (6.6-38.0); CALCIUM 9.7 MG/DL (8.5-10.1); CHLORIDE 104 MMOL/L (99-107); GLUCOSE 85 MG/DL (70-104); LIPASE 81 U/L (73-393); POTASSIUM 3.7 MMOL/L (3.5-5.1); SODIUM 139 MMOL/L (135-145); TOTAL CARBON DIOXIDE 17.2 MMOL/L (24-32); TOTAL PROTEIN 8.7 G/DL (6.4-8.2); eGFR 67 ML/MIN
[2018-10-28 14:35] LABS: PROTHROMBIN TIME 10.3 SECONDS (9.0-12.0)
[2018-10-28] MEDS ORDERED: ondansetron/PF 4mg/2ml inj IV ONE (15:45)
[2018-10-28] MEDS ORDERED: metoclopramide 5 mg/ml inj IV ONE (15:45)
[2018-10-28] MEDS ORDERED: diphenhydrAMINE 50 mg/ml inj IV ONE (15:45)
[2018-10-28] MEDS ORDERED: normal saline 1000ML IV soln IVB ONE ×2 (15:45)
[2018-10-28] MEDS ORDERED: magnesium 2GM in 50ml NS 50 ML IV ONE (16:00)
[2018-10-28 18:29] VITALS: BP 113/67
== END 2018-10-28 18:35 | disposition home or self-care (01) ==
LOC: ER 13:21
DX: E11.43 Type 2 diabetes mellitus with diabetic autonomic (poly)neuropathy (principal); K31.84 Gastroparesis; R11.10 Vomiting, unspecified; R10.84 Generalized abdominal pain; G43.909 Migraine, unspecified, not intractable, without status migrainosus; E78.00 Pure hypercholesterolemia, unspecified; J45.909 Unspecified asthma, uncomplicated; G89.29 Other chronic pain; F12.90 Cannabis use, unspecified, uncomplicated; Z90.49 Acquired absence of other specified parts of digestive tract; Z98.890 Other specified postprocedural states; Z98.51 Tubal ligation status; Z88.6 Allergy status to analgesic agent; Z88.8 Allergy status to other drugs, medicaments and biological substances; Z79.899 Other long term (current) drug therapy
CPT/HCPCS: 36415; 80053; 81001; 81025; 82948; 83690; 85025; 85610; 96365; 96366; 96375; 99284; J1200; J2405; J2765; J3475; J7030

== ENCOUNTER 2019-03-28 16:09 | Emergency (ER) | payer MEDICARE, MEDICAID ==
[~2019-03-28] VITALS: Ht 157.5 cm; Wt 55.7 kg
[2019-03-28 17:01] LABS: BASOPHILS # (AUTO) 0.1 X10'3 (0-0.2); BASOPHILS % (AUTO) 0.9 % (0-1); EOSINOPHILS # (AUTO) 0.3 X10'3 (0-0.9); EOSINOPHILS % (AUTO) 3.5 % (0-6); HEMATOCRIT 40.6 % (35.0-45.0); HEMOGLOBIN 13.3 g/dl (12.0-16.0); LYMPHOCYTES % (AUTO) 30.1 % (21-51); MEAN CORPUSCULAR HEMOGLOBIN 30.8 PG (27.0-31.0); MEAN CORPUSCULAR HGB CONC 32.8 g/dL (33.0-36.5); MEAN CORPUSCULAR VOLUME 94.1 FL (78-98); MEAN PLATELET VOLUME 7.6 FL (7.4-10.4); MONOCYTES # (AUTO) 0.8 X10'3 (0-0.9); MONOCYTES % (AUTO) 7.6 % (2-12); NEUTROPHILS # (AUTO) 5.7 X10'3 (1.8-7.7); NEUTROPHILS % (AUTO) 57.9 % (42-75); PLATELET COUNT 318 X10'3 (140-440); RED BLOOD COUNT 4.31 X10'6 (4.20-5.60); RED CELL DISTRIBUTION WIDTH 13.9 % (11.5-14.5); WHITE BLOOD COUNT 9.9 X10'3 (4.5-11.0)
[2019-03-28 17:20] LABS: ALANINE AMINOTRANSFERASE 19 U/L (12-78); ALBUMIN 3.5 G/DL (3.4-5.0); ALBUMIN/GLOBULIN RATIO 0.9 (1.1-1.5); ALKALINE PHOSPHATASE 82 IU/L (46-116); ANION GAP 12 (8-16); ASPARTATE AMINO TRANSFERASE 16 U/L (10-37); BILIRUBIN,TOTAL 0.2 MG/DL (0.1-1.0); BLOOD UREA NITROGEN 8 MG/DL (7-18); BUN/CREATININE RATIO 7.7 (6.6-38.0); CALCIUM 8.8 MG/DL (8.5-10.1); CHLORIDE 103 MMOL/L (99-107); CREATININE 1.04 MG/DL (0.40-0.90); GLUCOSE 144 MG/DL (70-104); POTASSIUM 3.4 MMOL/L (3.5-5.1); SODIUM 139 MMOL/L (135-145); TOTAL CARBON DIOXIDE 23.9 MMOL/L (24-32); TOTAL PROTEIN 7.3 G/DL (6.4-8.2); eGFR 57 ML/MIN
[2019-03-28] MEDS ORDERED: morphine 4 MG/ML inj SYRINge IM ONE (18:10)
[2019-03-28 18:26] VITALS: BP 95/49
== END 2019-03-28 18:29 | disposition home or self-care (01) ==
LOC: ER 16:10
DX: R07.89 Other chest pain (principal); R06.02 Shortness of breath; R11.0 Nausea; R61 Generalized hyperhidrosis; R42 Dizziness and giddiness; E78.00 Pure hypercholesterolemia, unspecified; G43.909 Migraine, unspecified, not intractable, without status migrainosus; E11.9 Type 2 diabetes mellitus without complications; G89.29 Other chronic pain; F17.200 Nicotine dependence, unspecified, uncomplicated; F12.90 Cannabis use, unspecified, uncomplicated; M54.9 Dorsalgia, unspecified; Z90.49 Acquired absence of other specified parts of digestive tract; Z98.51 Tubal ligation status; Z88.6 Allergy status to analgesic agent; Z88.8 Allergy status to other drugs, medicaments and biological substances
CPT/HCPCS: 36415; 71045; 80053; 84484; 85025; 93005; 96372; 99284; J2270

== ENCOUNTER 2019-05-26 11:34 | Emergency (ER) | payer MEDICARE, MEDICAID ==
[~2019-05-26] VITALS: Ht 154.9 cm; Wt 60.0 kg
[2019-05-26] MEDS ORDERED: normal saline 1000ML IV soln IVB ONE (11:45)
[2019-05-26] MEDS ORDERED: diphenhydrAMINE 50 mg/ml inj IV ONE (11:45)
[2019-05-26] MEDS ORDERED: haloperidol lactate 5mg/ml inj IM ONE ×2 (11:45→15:25)
[2019-05-26] MEDS ORDERED: proCHLORperazine 10 MG/2 ml inj IV ONE (11:45)
[2019-05-26 12:15] LABS: BASOPHILS # (AUTO) 0.1 X10'3 (0-0.2); HEMOGLOBIN 15.1 g/dl (12.0-16.0); MEAN CORPUSCULAR HEMOGLOBIN 31.1 PG (27.0-31.0)
[2019-05-26 12:17] LABS: BASOPHILS % (AUTO) 0.2 % (0-1); EOSINOPHILS % (AUTO) 0.2 % (0-6); HEMATOCRIT 45.4 % (35.0-45.0); LYMPHOCYTES # (AUTO) 1.7 X10'3 (1.1-4.8); MEAN CORPUSCULAR HGB CONC 33.1 g/dL (33.0-36.5); MEAN CORPUSCULAR VOLUME 93.8 FL (78-98); MEAN PLATELET VOLUME 7.5 FL (7.4-10.4); MONOCYTES % (AUTO) 4.1 % (2-12); NEUTROPHILS # (AUTO) 21.5 X10'3 (1.8-7.7); NEUTROPHILS % (AUTO) 88.5 % (42-75); PLATELET COUNT 346 X10'3 (140-440); RED BLOOD COUNT 4.84 X10'6 (4.20-5.60); RED CELL DISTRIBUTION WIDTH 13.5 % (11.5-14.5); WHITE BLOOD COUNT 24.2 X10'3 (4.5-11.0)
[2019-05-26 12:23] LABS: ALANINE AMINOTRANSFERASE 21 U/L (12-78); ALBUMIN 4.1 G/DL (3.4-5.0); ALBUMIN/GLOBULIN RATIO 0.9 (1.1-1.5); ALKALINE PHOSPHATASE 86 IU/L (46-116); ANION GAP 17 (8-16); ASPARTATE AMINO TRANSFERASE 24 U/L (10-37); BILIRUBIN,TOTAL 0.6 MG/DL (0.1-1.0); BLOOD UREA NITROGEN 19 MG/DL (7-18); CHLORIDE 103 MMOL/L (99-107); GLUCOSE 198 MG/DL (70-104); LIPASE 63 U/L (73-393); POTASSIUM 3.2 MMOL/L (3.5-5.1); SODIUM 139 MMOL/L (135-145); TOTAL CARBON DIOXIDE 19.3 MMOL/L (24-32); TOTAL PROTEIN 8.5 G/DL (6.4-8.2); eGFR 60 ML/MIN
[2019-05-26 13:27] LABS: PLATELET ESTIMATE NORMAL; TOTAL CELLS COUNTED 100
--- NOTE | 2019-05-26 13:44 | NUR ---
pt states that she cant make urine at this time
[2019-05-26 14:33] LABS: URINE AMPHETAMINE SCREEN NEGATIVE (Neg); URINE BARBITUATE SCREEN NEGATIVE (Neg); URINE BENZODIAZEPINES SCREEN NEGATIVE (Neg); URINE CANNABINOID SCREEN POSITIVE (Neg); URINE COCAINE SCREEN NEGATIVE (Neg); URINE METHADONE SCREEN NEGATIVE (Neg); URINE OPIATE SCREEN NEGATIVE (Neg); URINE PHENCYCLIDINE SCREEN NEGATIVE (Neg)
[2019-05-26 14:42] LABS: ETHANOL < 0.010 GM/DL (0.0-0.010)
[2019-05-26] MEDS ORDERED: LORazepam 2 mg/ml vial IV ONE (15:25)
[2019-05-26] MEDS ORDERED: ondansetron/PF 4mg/2ml inj IV ONE (15:25)
[2019-05-26 15:44] VITALS: BP 120/68
[2019-05-27] MEDS ORDERED: POTA20TA19 PO (15:09)
== END 2019-05-26 16:02 | disposition home or self-care (01) ==
LOC: ER 11:35
DX: G43.A0 Cyclical vomiting, in migraine, not intractable (principal); R19.7 Diarrhea, unspecified; D72.829 Elevated white blood cell count, unspecified; G43.909 Migraine, unspecified, not intractable, without status migrainosus; E78.00 Pure hypercholesterolemia, unspecified; J45.909 Unspecified asthma, uncomplicated; E11.9 Type 2 diabetes mellitus without complications; G89.29 Other chronic pain; F41.9 Anxiety disorder, unspecified; F32.9 Major depressive disorder, single episode, unspecified; F12.90 Cannabis use, unspecified, uncomplicated; Z88.6 Allergy status to analgesic agent; Z90.49 Acquired absence of other specified parts of digestive tract; Z98.51 Tubal ligation status; Z98.890 Other specified postprocedural states; Z88.8 Allergy status to other drugs, medicaments and biological substances; Z79.899 Other long term (current) drug therapy
CPT/HCPCS: 36415; 74176; 80053; 80305; 80320; 83690; 85025; 96361; 96372; 96374; 96375; 99284; J0780; J1200; J1630; J2060; J2405; J7030

== ENCOUNTER 2019-06-04 11:36 | Emergency (ER) | payer MEDICARE, MEDICAID ==
[~2019-06-04] VITALS: Ht 154.9 cm; Wt 60.0 kg
[~2019-06-04 11:36] MED LIST changes: +POTA20TA19 PO
[2019-06-04 13:22] LABS: BASOPHILS # (AUTO) 0.1 X10'3 (0-0.2); BASOPHILS % (AUTO) 0.5 % (0-1); EOSINOPHILS % (AUTO) 0.3 % (0-6); HEMOGLOBIN 17.5 g/dl (12.0-16.0); LYMPHOCYTES # (AUTO) 2.8 X10'3 (1.1-4.8); LYMPHOCYTES % (AUTO) 19.9 % (21-51); MEAN CORPUSCULAR HEMOGLOBIN 31.3 PG (27.0-31.0); MEAN CORPUSCULAR HGB CONC 33.7 g/dL (33.0-36.5); MEAN CORPUSCULAR VOLUME 92.9 FL (78-98); MEAN PLATELET VOLUME 8.4 FL (7.4-10.4); MONOCYTES # (AUTO) 1.3 X10'3 (0-0.9); MONOCYTES % (AUTO) 8.9 % (2-12); NEUTROPHILS % (AUTO) 70.4 % (42-75); PLATELET COUNT 405 X10'3 (140-440); RED BLOOD COUNT 5.59 X10'6 (4.20-5.60); RED CELL DISTRIBUTION WIDTH 13.2 % (11.5-14.5); WHITE BLOOD COUNT 14.2 X10'3 (4.5-11.0)
[2019-06-04 13:30] LABS: ALANINE AMINOTRANSFERASE 30 U/L (12-78); ALBUMIN 4.2 G/DL (3.4-5.0); ALBUMIN/GLOBULIN RATIO 0.9 (1.1-1.5); ALKALINE PHOSPHATASE 76 IU/L (46-116); ANION GAP 17 (8-16); ASPARTATE AMINO TRANSFERASE 25 U/L (10-37); BILIRUBIN,TOTAL 0.7 MG/DL (0.1-1.0); BLOOD UREA NITROGEN 18 MG/DL (7-18); BUN/CREATININE RATIO 18.4 (6.6-38.0); CALCIUM 9.8 MG/DL (8.5-10.1); CHLORIDE 90 MMOL/L (99-107); CREATININE 0.98 MG/DL (0.40-0.90); GLUCOSE 121 MG/DL (70-104); SODIUM 134 MMOL/L (135-145); TOTAL CARBON DIOXIDE 27.4 MMOL/L (24-32); TOTAL PROTEIN 8.7 G/DL (6.4-8.2); eGFR 61 ML/MIN
[2019-06-04 13:33] LABS: POTASSIUM 2.4 MMOL/L (3.5-5.1)
[2019-06-04] MEDS ORDERED: LORazepam 2 mg/ml vial IV ONE (14:05)
[2019-06-04] MEDS ORDERED: diphenhydrAMINE 50 mg/ml inj IV ONE (14:05)
[2019-06-04] MEDS ORDERED: haloperidol lactate 5mg/ml inj IM ONE (14:05)
[2019-06-04] MEDS ORDERED: normal saline 1000ML IV soln IVB ONE ×2 (14:05)
[2019-06-04] MEDS ORDERED: potassium Cl 20 mEq SR tablet PO STA (14:18)
[2019-06-04] MEDS ORDERED: potassium 10mEq/100ml NS w/LIDOcaine (10mg/bag) IV SCH (14:20)
[2019-06-04] MEDS: potassium Cl 10 mEq/100mL bag IV SCH ×2 (14:43→16:02)
[2019-06-04 14:55] LABS: URINE HCG NEGATIVE (NEG)
[2019-06-04 14:59] LABS: CLARITY,URINE CLEAR (Clear); COLOR,URINE YELLOW (Yellow); GLUCOSE, URINE NEGATIVE (Neg); KETONES,URINE >=80 mg/dl (Neg); LEUKOCYTE ESTERASE ,URINE NEGATIVE (Neg); NITRITES, URINE NEGATIVE (Neg); OCCULT BLOOD,URINE SMALL (Neg); PROTEIN,URINE 100 mg/dl (Neg)
[2019-06-04 15:10] LABS: UA COLLECTION TYPE CLN CATCH MIDSTREAM
[2019-06-04 15:11] LABS: BACTERIA,URINE 1+ /HPF (Neg); MUCUS STRANDS MANY /LPF (Neg); RBC,URINE 0-2 /HPF (0-2); SQUAMOUS EPITHELIAL CELL,UR MANY /LPF (FEW)
[2019-06-04 15:30] LABS: LIPASE 79 U/L (73-393)
[2019-06-04] MEDS ORDERED: CEPH500C5 PO (15:53)
[2019-06-04] MEDS ORDERED: POTA20TA19 PO (15:55)
[2019-06-04 17:10] VITALS: BP 141/71
== END 2019-06-04 17:14 | disposition home or self-care (01) ==
LOC: ER 11:36
DX: N39.0 Urinary tract infection, site not specified (principal); R11.2 Nausea with vomiting, unspecified; E86.0 Dehydration; R10.13 Epigastric pain; G43.909 Migraine, unspecified, not intractable, without status migrainosus; E78.00 Pure hypercholesterolemia, unspecified; E11.9 Type 2 diabetes mellitus without complications; G89.29 Other chronic pain; F17.210 Nicotine dependence, cigarettes, uncomplicated; F12.90 Cannabis use, unspecified, uncomplicated; Z90.49 Acquired absence of other specified parts of digestive tract; Z98.890 Other specified postprocedural states; Z98.51 Tubal ligation status; Z88.6 Allergy status to analgesic agent; Z88.8 Allergy status to other drugs, medicaments and biological substances; Z88.1 Allergy status to other antibiotic agents; Z79.899 Other long term (current) drug therapy
CPT/HCPCS: 36415; 80053; 81001; 81025; 83690; 85025; 85610; 96361; 96372; 96374; 96375; 99284; J1200; J1630; J2060; J3480; J7030

== ENCOUNTER 2019-06-22 13:55 | Inpatient (IN) | payer MEDICARE, MEDICAID ==
[~2019-06-22] VITALS: Ht 154.9 cm; Wt 53.0 kg
[~2019-06-22 13:55] MED LIST changes: +CEPH500C5 PO
[2019-06-22] MEDS ORDERED: dexamethasone sod phosphate 10mg/ml inj IV STA (14:09)
[2019-06-22] MEDS ORDERED: normal saline 1000ML IV soln IVB ONE ×2 (14:10→17:00)
[2019-06-22] MEDS ORDERED: metoclopramide 5 mg/ml inj IV ONE (14:10)
[2019-06-22] MEDS ORDERED: LORazepam 2 mg/ml vial IV ONE (14:10)
[2019-06-22 15:07] LABS: BASOPHILS % (AUTO) 0.2 % (0-1); EOSINOPHILS % (AUTO) 0 % (0-6); HEMATOCRIT 44.9 % (35.0-45.0); LYMPHOCYTES # (AUTO) 1.2 X10'3 (1.1-4.8); LYMPHOCYTES % (AUTO) 6.8 % (21-51); MEAN CORPUSCULAR HEMOGLOBIN 31.8 PG (27.0-31.0); MEAN CORPUSCULAR HGB CONC 33.4 g/dL (33.0-36.5); MEAN CORPUSCULAR VOLUME 95.1 FL (78-98); MEAN PLATELET VOLUME 7.2 FL (7.4-10.4); MONOCYTES # (AUTO) 0.5 X10'3 (0-0.9); MONOCYTES % (AUTO) 2.9 % (2-12); NEUTROPHILS # (AUTO) 15.2 X10'3 (1.8-7.7); NEUTROPHILS % (AUTO) 90.1 % (42-75); PLATELET COUNT 337 X10'3 (140-440); RED BLOOD COUNT 4.72 X10'6 (4.20-5.60); RED CELL DISTRIBUTION WIDTH 14.2 % (11.5-14.5); WHITE BLOOD COUNT 16.9 X10'3 (4.5-11.0)
[2019-06-22 15:13] LABS: ALANINE AMINOTRANSFERASE 26 U/L (12-78); ALBUMIN 3.9 G/DL (3.4-5.0); ALBUMIN/GLOBULIN RATIO 0.8 (1.1-1.5); ALKALINE PHOSPHATASE 77 IU/L (46-116); ANION GAP 20 (8-16); ASPARTATE AMINO TRANSFERASE 16 U/L (10-37); BILIRUBIN,TOTAL 0.5 MG/DL (0.1-1.0); BLOOD UREA NITROGEN 14 MG/DL (7-18); BUN/CREATININE RATIO 15.2 (6.6-38.0); CALCIUM 9.9 MG/DL (8.5-10.1); CHLORIDE 102 MMOL/L (99-107); CREATININE 0.92 MG/DL (0.40-0.90); GLUCOSE 223 MG/DL (70-104); LIPASE 54 U/L (73-393); POTASSIUM 3.8 MMOL/L (3.5-5.1); SODIUM 140 MMOL/L (135-145); TOTAL CARBON DIOXIDE 17.7 MMOL/L (24-32); TOTAL PROTEIN 8.7 G/DL (6.4-8.2); eGFR 66 ML/MIN
--- NOTE | 2019-06-22 15:16 | NUR ---
patient unable to void at this time,gia RAMIRES made aware.
--- NOTE | 2019-06-22 15:43 | NUR ---
patient to the bathroom.
[2019-06-22 15:56] LABS: ETHANOL < 0.010 GM/DL (0.0-0.010)
[2019-06-22 16:06] LABS: URINE HCG NEGATIVE (NEG)
[2019-06-22 16:09] LABS: CLARITY,URINE SLIGHTLY CLOUDY (Clear); COLOR,URINE YELLOW (Yellow); GLUCOSE, URINE NEGATIVE (Neg); KETONES,URINE >=80 mg/dl (Neg); LEUKOCYTE ESTERASE ,URINE NEGATIVE (Neg); NITRITES, URINE NEGATIVE (Neg); OCCULT BLOOD,URINE MODERATE (Neg); PH,URINE 5.5 (4.8-8.0); PROTEIN,URINE 100 mg/dl (Neg); UROBILINOGEN,URINE 0.2 E.U/dL (0.2-1.0)
[2019-06-22 16:11] LABS: UA COLLECTION TYPE CLN CATCH MIDSTREAM
[2019-06-22 16:16] LABS: URINE AMPHETAMINE SCREEN NEGATIVE (Neg); URINE BARBITUATE SCREEN NEGATIVE (Neg); URINE BENZODIAZEPINES SCREEN NEGATIVE (Neg); URINE CANNABINOID SCREEN POSITIVE (Neg); URINE COCAINE SCREEN NEGATIVE (Neg); URINE METHADONE SCREEN NEGATIVE (Neg); URINE OPIATE SCREEN NEGATIVE (Neg); URINE PHENCYCLIDINE SCREEN NEGATIVE (Neg)
[2019-06-22 16:21] LABS: HYALINE CASTS 0-3 /LPF (NEGATIVE); MUCUS STRANDS MANY /LPF (Neg); SQUAMOUS EPITHELIAL CELL,UR MODERATE /LPF (FEW)
[2019-06-22 16:23] LABS: BACTERIA,URINE FEW /HPF (Neg); WBC,URINE 0-4 /HPF (0-4)
[2019-06-22] MEDS ORDERED: CefTRIAXone 2gm/D5W 50ml 50 ML IV ONE (17:00)
[2019-06-22] MEDS ORDERED: ONDA4TAB11 PO (17:31)
[2019-06-22] MEDS ORDERED: FERR-97 PO (17:31)
[2019-06-22] MEDS ORDERED: TOPI50TA24 PO (17:33)
[2019-06-22] MEDS ORDERED: METO10TA3 PO (17:34)
[2019-06-22] MEDS ORDERED: HYDR-3686 PO (17:35)
--- NOTE | 2019-06-22 17:45 | NUR ---
dr. chavez at bedside.
[2019-06-22] MEDS ORDERED: magnesium hydroxide 30ml (MOM) UD suspension PO PRN (17:55)
[2019-06-22] MEDS ORDERED: magnesium Cl slow-release 64mg tablet PO PRN (17:55)
[2019-06-22] MEDS ORDERED: HYDROmorphone inj. 0.5 MG/0.5 ML DISP.SYRIN IV PRN (17:55)
[2019-06-22] MEDS ORDERED: magnesium 2GM in 50ml NS 50 ML IV PRN (17:55)
[2019-06-22] MEDS ORDERED: potassium Cl 20 mEq SR tablet PO PRN (17:55)
[2019-06-22] MEDS ORDERED: HYDROmorphone 1 mg/ml syringe IV PRN (17:55)
[2019-06-22] MEDS ORDERED: levoFLOXACIN-Levaquin 500mg/D5 100 ML IV ONE (17:55)
[2019-06-22] MEDS ORDERED: acetaminophen 325mg tablet PO PRN ×2 (17:55)
[2019-06-22] MEDS ORDERED: magnesium 4gm in 100ml NS 100 ML IV PRN (17:55)
[2019-06-22] MEDS ORDERED: HYDROcodone/acetaminophen 5mg/325mg tablet PO PRN (17:55)
[2019-06-22] MEDS ORDERED: potassium CL 10mEq/100ml bag 100 ML IV PRN (17:55)
[2019-06-22] MEDS ORDERED: mag hydrox/Alum hydrox/simeth 30ml oral suspension PO PRN (17:55)
[2019-06-22] MEDS ORDERED: HYDROcodone/acetaminophen 10/325mg tab PO PRN (17:55)
[2019-06-22] MEDS ORDERED: acetaminophen 650mg rectal suppository RC PRN (17:55)
[2019-06-22] MEDS: K and/or MAG REPLACEMENT MC SCH (17:55)
[2019-06-22] MEDS ORDERED: ondansetron/PF 4mg/2ml inj IV ONE (17:55)
[2019-06-22] MEDS ORDERED: PEG 3350/Na sulf,bicarb,Cl/KCl oral sol 4 liter bottle PO ONE (17:55)
--- NOTE | 2019-06-22 18:21 | NUR ---
Patient is sleeping comfortaby in bed at this time.
[2019-06-22] MEDS: normal saline 1000ml 1,000 ML IV SCH (18:38)
[2019-06-22] MEDS: metoclopramide 5 mg/ml inj IV PRN (19:11)
--- NOTE | 2019-06-22 19:11 | NUR ---
Patient became nauseated after sipping her golytely. Will give reglan and attempt again shortly.
--- NOTE | 2019-06-22 19:54 | NUR ---
Dr. West contacted about patient's persistent nausea and vomiting and inability to keep golytely down. 5mg compazine IV ordered now and an additional 5mg compazine IV if she continues to vomit 30 minutes from the time it is given.
[2019-06-22] MEDS ORDERED: proCHLORperazine 10 MG/2 ml inj IV PRN (19:55)
[2019-06-22] MEDS: topiramate 25mg tablet PO SCH (20:00)
[2019-06-22] MEDS: proCHLORperazine 10 MG/2 ml inj IV PRN (20:06)
--- NOTE | 2019-06-22 20:09 | NUR ---
Levaquin being held per MD order to obtain stool sample prior to administration of abx.
--- NOTE | 2019-06-22 20:09 | NUR ---
Patient has had unrelieved Nausea and vomiting, patient given zofran, reglan and compazine per order in attempt to stop active vomiting. Patient continues to vomit at this time. Given dose of 5mg Compazine at 2004 will re eval in 30 min and administer additional dose per Dr West order at that time if patient is has continued episodes of vomiting
[2019-06-22] MEDS ORDERED: proCHLORperazine 10 MG/2 ml inj IV ONE (20:45)
--- NOTE | 2019-06-22 20:55 | NUR ---
I have received report from Tatiana BHATIA and had the opportunity to ask questions and assume patient care.
[2019-06-22 21:00] VITALS: BP 104/77
[2019-06-22] MEDS: gabapentin 300mg capsule PO SCH (21:00)
[2019-06-22] MEDS ORDERED: temazepam 15mg capsule PO PRN (21:00)
[2019-06-23] MEDS: metoclopramide 5 mg/ml inj IV PRN ×2 (02:26→14:05)
[2019-06-23] MEDS: ondansetron/PF 4mg/2ml inj IV PRN (04:24)
[2019-06-23] MEDS ORDERED: proCHLORperazine 10 MG/2 ml inj IV ONE ×2 (05:05)
[2019-06-23 06:25] LABS: BASOPHILS % (AUTO) 0.1 % (0-1); EOSINOPHILS % (AUTO) 0 % (0-6); HEMOGLOBIN 12.7 g/dl (12.0-16.0); LYMPHOCYTES # (AUTO) 1.9 X10'3 (1.1-4.8); LYMPHOCYTES % (AUTO) 14.1 % (21-51); MEAN CORPUSCULAR HEMOGLOBIN 30.7 PG (27.0-31.0); MEAN CORPUSCULAR HGB CONC 32.6 g/dL (33.0-36.5); MEAN CORPUSCULAR VOLUME 94.3 FL (78-98); MEAN PLATELET VOLUME 7.5 FL (7.4-10.4); MONOCYTES % (AUTO) 7.1 % (2-12); NEUTROPHILS # (AUTO) 10.6 X10'3 (1.8-7.7); NEUTROPHILS % (AUTO) 78.7 % (42-75); PLATELET COUNT 294 X10'3 (140-440); RED BLOOD COUNT 4.14 X10'6 (4.20-5.60); RED CELL DISTRIBUTION WIDTH 13.9 % (11.5-14.5); WHITE BLOOD COUNT 13.4 X10'3 (4.5-11.0)
--- NOTE | 2019-06-23 06:26 | NUR ---
Problems reprioritized. Patient report given, questions answered & plan of care reviewed with Eduardo BHATIA.
--- NOTE | 2019-06-23 06:26 | NUR ---
Patient in room ORTH[facility] 4014. I have received report from Lana BHATIA and had the opportunity to ask questions and assume patient care.
--- NOTE | 2019-06-23 06:29 | NUR ---
Unable to administer ordered abxs d/t inability to collect stool sample from patient.
[2019-06-23 06:37] LABS: ALANINE AMINOTRANSFERASE 22 U/L (12-78); ALBUMIN 3.4 G/DL (3.4-5.0); ALBUMIN/GLOBULIN RATIO 0.9 (1.1-1.5); ALKALINE PHOSPHATASE 57 IU/L (46-116); ANION GAP 18 (8-16); ASPARTATE AMINO TRANSFERASE 10 U/L (10-37); BILIRUBIN,TOTAL 0.3 MG/DL (0.1-1.0); BLOOD UREA NITROGEN 5 MG/DL (7-18); BUN/CREATININE RATIO 7.1 (6.6-38.0); CALCIUM 9.1 MG/DL (8.5-10.1); CHLORIDE 105 MMOL/L (99-107); GLUCOSE 119 MG/DL (70-104); MAGNESIUM 1.6 MG/DL (1.5-2.4); PHOSPHORUS 2.2 MG/DL (2.3-4.5); POTASSIUM 3.1 MMOL/L (3.5-5.1); SODIUM 143 MMOL/L (135-145); TOTAL CARBON DIOXIDE 20.2 MMOL/L (24-32); TOTAL PROTEIN 7.4 G/DL (6.4-8.2); eGFR 90 ML/MIN
[2019-06-23] MEDS: normal saline 1000ml 1,000 ML IV SCH ×2 (07:29→13:29)
--- NOTE | 2019-06-23 08:42 | NUR ---
ID: [phone] MESSAGE: RE: [id number] Dariana Tierney Pt still nauseated and vomiting. Zofran, Compazine and Reglan did not help. Pt has not been able to drink any of her prep for colonoscopy today. What else can we give her? Eduardo BHATIA [id number]
[2019-06-23] MEDS: levoFLOXACIN-Levaquin 500mg/D5 100 ML IV SCH (08:58)
[2019-06-23] MEDS: metroNIDAZOLE-Flagyl 500mg/NS 100 ML IV SCH ×4 (08:58→23:16)
[2019-06-23] MEDS: K and/or MAG REPLACEMENT MC SCH (09:12)
--- NOTE | 2019-06-23 09:12 | NUR ---
PAGER ID: [phone] MESSAGE: RE: Fabiola ALEXANDRA [id number] I called Dr. Bruner and he said he hasn't seen the pt today so he has nothing to offer. He will see the pt later today. What do you want to do to help with N/V? Eduardo BHATIA [id number]
[2019-06-23] MEDS: duloxetine 30mg CAPSULE.DR PO SCH (09:13)
[2019-06-23] MEDS: hydrOXYzine 25 MG tablet PO SCH (09:13)
[2019-06-23] MEDS: gabapentin 300mg capsule PO SCH ×3 (09:14→21:00)
[2019-06-23] MEDS: topiramate 25mg tablet PO SCH ×2 (09:14→20:00)
[2019-06-23 10:00] VITALS: BP 139/70
[2019-06-23] MEDS: proCHLORperazine 10 MG/2 ml inj IV PRN ×4 (11:05→23:16)
[2019-06-23 11:51] LABS: C DIFF ANTIGEN NEGATIVE (NEGATIVE); C DIFF SPECIMEN=DIARRHEA? ACCEPTABLE; C DIFFICILE TOXINS A&B NEGATIVE (Neg)
[2019-06-23] MEDS: potassium CL 10mEq/100ml bag 100 ML IV PRN ×2 (13:30→16:25)
--- NOTE | 2019-06-23 17:26 | NUR ---
pharmacy called to let nursing staff know that they are unable to provide lidocaine in iv potassium, pt not able to tolerate po potassium because of her n/v and pt tells nursing staff that iv potassium jeronimo too much therefore pt is refusing to take her potassium replacement at this time, continue to educate and monitor pt
[2019-06-23] MEDS: pantoprazole 40MG/NS 100ML BAG 100 ML IV SCH ×2 (17:41→23:48)
[2019-06-23 18:00] VITALS: BP 131/88
--- NOTE | 2019-06-23 18:20 | NUR ---
Problems reprioritized. Patient report given, questions answered & plan of care reviewed with NAHUN BHATIA.
[2019-06-23] MEDS: metoclopramide 5 mg/ml inj IV SCH (19:54)
[2019-06-23] MEDS: lactobacillus rhamnosus 10,000 MMU CELLS/CAPSULE PO SCH (20:00)
[2019-06-23] MEDS: Neutra Phos packet PO SCH (21:00)
[2019-06-23 22:00] VITALS: BP 132/66
[2019-06-24] VITALS (9 sets, daily range): BP systolic 42–147; BP diastolic 48–80
[2019-06-24] MEDS: metoclopramide 5 mg/ml inj IV SCH ×4 (02:19→21:08)
[2019-06-24] MEDS: ondansetron/PF 4mg/2ml inj IV PRN (03:48)
[2019-06-24] MEDS: pantoprazole 40MG/NS 100ML BAG 100 ML IV SCH ×5 (04:30→21:00)
[2019-06-24] MEDS: normal saline 1000ml 1,000 ML IV SCH ×2 (04:43→09:53)
[2019-06-24] MEDS: proCHLORperazine 10 MG/2 ml inj IV PRN ×3 (05:23→23:16)
[2019-06-24 06:06] LABS: ALANINE AMINOTRANSFERASE 19 U/L (12-78); ALBUMIN 3.4 G/DL (3.4-5.0); ALKALINE PHOSPHATASE 51 IU/L (46-116); ANION GAP 13 (8-16); ASPARTATE AMINO TRANSFERASE 13 U/L (10-37); BILIRUBIN,TOTAL 0.6 MG/DL (0.1-1.0); BLOOD UREA NITROGEN 3 MG/DL (7-18); BUN/CREATININE RATIO 4.2 (6.6-38.0); CALCIUM 8.7 MG/DL (8.5-10.1); CHLORIDE 103 MMOL/L (99-107); CREATININE 0.72 MG/DL (0.40-0.90); GLUCOSE 96 MG/DL (70-104); MAGNESIUM 1.5 MG/DL (1.5-2.4); PHOSPHORUS 2.6 MG/DL (2.3-4.5); SODIUM 140 MMOL/L (135-145); TOTAL CARBON DIOXIDE 23.8 MMOL/L (24-32); TOTAL PROTEIN 6.8 G/DL (6.4-8.2); eGFR 87 ML/MIN
[2019-06-24 06:08] LABS: BASOPHILS % (AUTO) 0.3 % (0-1); EOSINOPHILS % (AUTO) 0.1 % (0-6); HEMATOCRIT 35.7 % (35.0-45.0); HEMOGLOBIN 12.1 g/dl (12.0-16.0); LYMPHOCYTES # (AUTO) 1.8 X10'3 (1.1-4.8); LYMPHOCYTES % (AUTO) 16.4 % (21-51); MEAN CORPUSCULAR HEMOGLOBIN 31.5 PG (27.0-31.0); MEAN CORPUSCULAR HGB CONC 33.8 g/dL (33.0-36.5); MEAN CORPUSCULAR VOLUME 93.1 FL (78-98); MEAN PLATELET VOLUME 7.4 FL (7.4-10.4); MONOCYTES % (AUTO) 9.7 % (2-12); NEUTROPHILS # (AUTO) 7.9 X10'3 (1.8-7.7); NEUTROPHILS % (AUTO) 73.5 % (42-75); PLATELET COUNT 256 X10'3 (140-440); RED BLOOD COUNT 3.83 X10'6 (4.20-5.60); RED CELL DISTRIBUTION WIDTH 14.2 % (11.5-14.5); WHITE BLOOD COUNT 10.8 X10'3 (4.5-11.0)
[2019-06-24 06:11] LABS: POTASSIUM 2.6 MMOL/L (3.5-5.1)
--- NOTE | 2019-06-24 06:37 | NUR ---
Patient report given, questions answered & plan of care reviewed with Nanda BHATIA.
--- NOTE | 2019-06-24 06:40 | NUR ---
Patient in room ORTH[facility] 4014. I have received report from JANNETTE Schwartz and had the opportunity to ask questions and assume patient care.
[2019-06-24] MEDS: potassium CL 10mEq/100ml bag 100 ML IV PRN ×3 (07:59→16:00)
[2019-06-24] MEDS: gabapentin 300mg capsule PO SCH ×3 (08:00→21:07)
[2019-06-24] MEDS: topiramate 25mg tablet PO SCH ×2 (08:00→21:08)
[2019-06-24] MEDS: Neutra Phos packet PO SCH ×3 (08:00→21:09)
[2019-06-24] MEDS: duloxetine 30mg CAPSULE.DR PO SCH (08:00)
[2019-06-24] MEDS: hydrOXYzine 25 MG tablet PO SCH (08:00)
[2019-06-24] MEDS: K and/or MAG REPLACEMENT MC SCH (08:00)
[2019-06-24] MEDS: lactobacillus rhamnosus 10,000 MMU CELLS/CAPSULE PO SCH ×2 (08:00→21:07)
[2019-06-24] MEDS: metroNIDAZOLE-Flagyl 500mg/NS 100 ML IV SCH ×2 (08:13→16:49)
[2019-06-24] MEDS: levoFLOXACIN-Levaquin 500mg/D5 100 ML IV SCH (09:30)
[2019-06-24 12:30] LABS: OCCULT BLOOD STOOL NEGATIVE (Neg)
--- NOTE | 2019-06-24 12:41 | NUR ---
pt to GI lab.
[2019-06-24] MEDS ORDERED: MIDAZolam 5mg/5ml vial ONE (12:49)
[2019-06-24] MEDS ORDERED: fentaNYL/PF 50MCG/1 ML 2ML syringe ONE (12:49)
[2019-06-24] MEDS ORDERED: LIDOcaine Viscous 15ml cup ONE (12:49)
--- NOTE | 2019-06-24 17:21 | NUR ---
Pt c/o pain/tenderness in right upper arm and right forearm IV's throughout the day. Rotated using IV sites with Protonix, IVF, IV abx, and IV K running. Heat pack applied. Pt states it's too tender now. Pt disconnected for IV meds. Pt is a difficult stick and has multiple bruises on arms. PICC RN paged, awaiting call back.
--- NOTE | 2019-06-24 17:24 | NUR ---
VS stable throughout the day. Pt ambulating in room independently throughout the day, safety maintained. c/o nausea throughout the day even after med administration. Pt states ambulating around the unit and taking long showers helps with her nausea. K 2.6. Protocol to hang 10 mEq bags of K x8. Two full bags and a partial 3rd bag given so far d/t pts decreased tolerance of IV K and needing to run the bags slowly even piggybacked to IVF. Pt too nauseous to take PO meds. Upper GI performed today.
--- NOTE | 2019-06-24 18:13 | NUR ---
PIV started to left forearm without difficulty, pt denies wanting second IV at this time, RN notified pt would prob need extended PIV if needed tomorrow still, pt refuses extended piv at this time. DMITRIY BHATIA Addendum: 06/24/19 at 1816 by Yuni Ray RN Amended: Links added.
--- NOTE | 2019-06-24 18:34 | NUR ---
Patient in room [facility]TH[facility] 4014. I have received report from JANNETTE Craft and had the opportunity to ask questions and assume patient care.
[2019-06-24] MEDS: potassium Cl 20 mEq SR tablet PO PRN (21:21)
[2019-06-25] MEDS: pantoprazole 40MG/NS 100ML BAG 100 ML IV SCH ×5 (01:00→23:23)
--- NOTE | 2019-06-25 01:19 | NUR ---
Unable to start 2100 protonix and 0000 due to no 2nd IV access. Three attempts made, patient pulled away 2 times, will attempt again. Unable to start 0000 Flagyl due to limited IV access. Will attempt again and pass note on to dayshift nurse to possibly have PICC nurse start extended line.
[2019-06-25] MEDS: potassium Cl 20 mEq SR tablet PO PRN ×2 (01:33→05:42)
--- NOTE | 2019-06-25 02:08 | NUR ---
Able to hang 0000 [employer] drip.
--- NOTE | 2019-06-25 03:04 | NUR ---
Able to give 0000 flagyl now. New IV placed in right hand by JANNETTE Srivastava.
--- NOTE | 2019-06-25 03:08 | NUR ---
Daytime dose of Flagyl administered by JANNETTE Vee did not run in due to patient not having 2 IV's and IV administration past time able to give. Will dispose of this bag and start 0000 dose now at 0300.
[2019-06-25] MEDS: metoclopramide 5 mg/ml inj IV SCH ×4 (03:13→20:00)
[2019-06-25] MEDS: metroNIDAZOLE-Flagyl 500mg/NS 100 ML IV SCH ×3 (03:13→10:24)
[2019-06-25] MEDS: proCHLORperazine 10 MG/2 ml inj IV PRN ×2 (05:42→19:37)
[2019-06-25] MEDS: normal saline 1000ml 1,000 ML IV SCH ×4 (05:48→22:37)
[2019-06-25 06:00] VITALS: BP 110/57
[2019-06-25 06:22] LABS: ALANINE AMINOTRANSFERASE 14 U/L (12-78); ALBUMIN 2.9 G/DL (3.4-5.0); ALKALINE PHOSPHATASE 45 IU/L (46-116); ANION GAP 7 (8-16); ASPARTATE AMINO TRANSFERASE 13 U/L (10-37); BILIRUBIN,TOTAL 0.7 MG/DL (0.1-1.0); BLOOD UREA NITROGEN 1 MG/DL (7-18); BUN/CREATININE RATIO 1.4 (6.6-38.0); CALCIUM 8.7 MG/DL (8.5-10.1); CHLORIDE 111 MMOL/L (99-107); CREATININE 0.69 MG/DL (0.40-0.90); GLUCOSE 78 MG/DL (70-104); MAGNESIUM 1.7 MG/DL (1.5-2.4); PHOSPHORUS 2.5 MG/DL (2.3-4.5); POTASSIUM 3.6 MMOL/L (3.5-5.1); SODIUM 143 MMOL/L (135-145); TOTAL PROTEIN 5.9 G/DL (6.4-8.2); eGFR > 90 ML/MIN
--- NOTE | 2019-06-25 06:30 | NUR ---
Problems reprioritized. Patient report given, questions answered & plan of care reviewed with JANNETTE Pacheco.
[2019-06-25 06:33] LABS: HEMATOCRIT 33.4 % (35.0-45.0); HEMOGLOBIN 11.4 g/dl (12.0-16.0); LYMPHOCYTES % (AUTO) 40.5 % (21-51); MEAN CORPUSCULAR HEMOGLOBIN 31.8 PG (27.0-31.0); MEAN CORPUSCULAR HGB CONC 34.2 g/dL (33.0-36.5); MEAN CORPUSCULAR VOLUME 93.1 FL (78-98); MEAN PLATELET VOLUME 7.5 FL (7.4-10.4); NEUTROPHILS % (AUTO) 47.7 % (42-75); PLATELET COUNT 243 X10'3 (140-440); RED BLOOD COUNT 3.59 X10'6 (4.20-5.60); RED CELL DISTRIBUTION WIDTH 13.6 % (11.5-14.5); WHITE BLOOD COUNT 8.8 X10'3 (4.5-11.0)
[2019-06-25 06:34] LABS: BASOPHILS # (AUTO) 0.1 X10'3 (0-0.2); BASOPHILS % (AUTO) 0.6 % (0-1); EOSINOPHILS % (AUTO) 0.5 % (0-6); LYMPHOCYTES # (AUTO) 3.6 X10'3 (1.1-4.8); MONOCYTES # (AUTO) 0.9 X10'3 (0-0.9); MONOCYTES % (AUTO) 10.7 % (2-12); NEUTROPHILS # (AUTO) 4.2 X10'3 (1.8-7.7)
[2019-06-25] MEDS: ondansetron/PF 4mg/2ml inj IV PRN ×2 (06:58→18:45)
[2019-06-25] MEDS: gabapentin 300mg capsule PO SCH ×3 (08:00→21:41)
[2019-06-25] MEDS: hydrOXYzine 25 MG tablet PO SCH (08:00)
[2019-06-25] MEDS: K and/or MAG REPLACEMENT MC SCH (08:00)
[2019-06-25] MEDS: lactobacillus rhamnosus 10,000 MMU CELLS/CAPSULE PO SCH ×2 (08:00→21:42)
[2019-06-25] MEDS: Neutra Phos packet PO SCH ×3 (08:00→21:00)
[2019-06-25] MEDS: duloxetine 30mg CAPSULE.DR PO SCH (08:00)
[2019-06-25] MEDS: topiramate 25mg tablet PO SCH ×2 (08:00→21:41)
[2019-06-25 10:00] VITALS: BP 138/57
[2019-06-25] MEDS: levoFLOXACIN-Levaquin 500mg/D5 100 ML IV SCH (12:18)
[2019-06-25] MEDS: diphenhydrAMINE 50 mg/ml inj IV PRN ×2 (12:18→21:39)
[2019-06-25] MEDS: haloperidol lactate 5mg/ml inj IM PRN ×2 (12:19→21:40)
--- NOTE | 2019-06-25 16:59 | NUR ---
PAGER ID: [phone] MESSAGE: Tara Saenz6 Dariana Robertson in [id number]- nausea is better! But her anus is sore from diarrhea yesterday, can we get some topical pain relief please? Tucks pads?
[2019-06-25] MEDS: silver sulfadiazine cream 400gm jar TP SCH (17:15)
[2019-06-25 18:00] VITALS: BP 94/45
--- NOTE | 2019-06-25 18:15 | NUR ---
Patient in room [facility]TH[facility] 4014. I have received report from Tara BHATIA and had the opportunity to ask questions and assume patient care. Checked on patient, she is still nauseous and has emesis bag in her hand. Will continue to monitor closely.
[2019-06-25 22:00] VITALS: BP 118/58
[2019-06-26] MEDS: proCHLORperazine 10 MG/2 ml inj IV PRN (01:27)
[2019-06-26] MEDS: metoclopramide 5 mg/ml inj IV SCH ×4 (02:00→19:23)
[2019-06-26] MEDS: pantoprazole 40MG/NS 100ML BAG 100 ML IV SCH ×6 (04:20→20:25)
[2019-06-26 06:15] LABS: BASOPHILS % (AUTO) 0.6 % (0-1); EOSINOPHILS # (AUTO) 0.1 X10'3 (0-0.9); EOSINOPHILS % (AUTO) 0.7 % (0-6); HEMATOCRIT 35.6 % (35.0-45.0); LYMPHOCYTES # (AUTO) 2.6 X10'3 (1.1-4.8); LYMPHOCYTES % (AUTO) 33.2 % (21-51); MEAN CORPUSCULAR HEMOGLOBIN 31.8 PG (27.0-31.0); MEAN CORPUSCULAR HGB CONC 33.6 g/dL (33.0-36.5); MEAN CORPUSCULAR VOLUME 94.8 FL (78-98); MEAN PLATELET VOLUME 7.5 FL (7.4-10.4); MONOCYTES # (AUTO) 0.7 X10'3 (0-0.9); NEUTROPHILS # (AUTO) 4.3 X10'3 (1.8-7.7); NEUTROPHILS % (AUTO) 56.5 % (42-75); PLATELET COUNT 258 X10'3 (140-440); RED BLOOD COUNT 3.76 X10'6 (4.20-5.60); RED CELL DISTRIBUTION WIDTH 13.8 % (11.5-14.5); WHITE BLOOD COUNT 7.7 X10'3 (4.5-11.0)
[2019-06-26 06:44] LABS: ALANINE AMINOTRANSFERASE 17 U/L (12-78); ALBUMIN 3.1 G/DL (3.4-5.0); ALKALINE PHOSPHATASE 46 IU/L (46-116); ANION GAP 10 (8-16); ASPARTATE AMINO TRANSFERASE 15 U/L (10-37); BILIRUBIN,TOTAL 0.7 MG/DL (0.1-1.0); CALCIUM 8.6 MG/DL (8.5-10.1); CHLORIDE 110 MMOL/L (99-107); GLUCOSE 84 MG/DL (70-104); MAGNESIUM 1.7 MG/DL (1.5-2.4); PHOSPHORUS 3.1 MG/DL (2.3-4.5); POTASSIUM 3.1 MMOL/L (3.5-5.1); SODIUM 142 MMOL/L (135-145); TOTAL CARBON DIOXIDE 21.8 MMOL/L (24-32); TOTAL PROTEIN 6.1 G/DL (6.4-8.2)
--- NOTE | 2019-06-26 06:50 | NUR ---
Problems reprioritized. Patient report given, questions answered & plan of care reviewed with Tara BHATIA and Сергей BHATIA.
[2019-06-26 07:09] LABS: BLOOD UREA NITROGEN 1 MG/DL (7-18); BUN/CREATININE RATIO 1.3 (6.6-38.0); CREATININE 0.75 MG/DL (0.40-0.90); eGFR 83 ML/MIN
[2019-06-26 07:20] VITALS: BP 105/59
[2019-06-26 10:00] VITALS: BP 109/43
[2019-06-26] MEDS: silver sulfadiazine cream 400gm jar TP SCH (10:00)
[2019-06-26] MEDS: topiramate 25mg tablet PO SCH ×2 (10:01→19:23)
[2019-06-26] MEDS: hydrOXYzine 25 MG tablet PO SCH (10:01)
[2019-06-26] MEDS: lactobacillus rhamnosus 10,000 MMU CELLS/CAPSULE PO SCH ×2 (10:01→19:23)
[2019-06-26] MEDS: gabapentin 300mg capsule PO SCH ×3 (10:01→21:11)
[2019-06-26] MEDS: Neutra Phos packet PO SCH ×3 (10:01→21:11)
[2019-06-26] MEDS: duloxetine 30mg CAPSULE.DR PO SCH (10:02)
[2019-06-26] MEDS: normal saline 1000ml 1,000 ML IV SCH ×2 (10:03→20:20)
[2019-06-26] MEDS ORDERED: haloperidol lactate 5mg/ml inj IM PRN (11:20)
[2019-06-26] MEDS ORDERED: diphenhydrAMINE 50 mg/ml inj IV PRN (11:20)
[2019-06-26] MEDS ORDERED: potassium CL 10mEq/100ml bag 100 ML IV PRN (11:50)
[2019-06-26] MEDS ORDERED: magnesium 4gm in 100ml NS 100 ML IV PRN (11:50)
[2019-06-26] MEDS ORDERED: magnesium Cl slow-release 64mg tablet PO PRN (11:50)
[2019-06-26] MEDS ORDERED: potassium Cl 20 mEq SR tablet PO PRN (11:50)
[2019-06-26] MEDS: K and/or MAG REPLACEMENT MC SCH (12:34)
[2019-06-26] MEDS: potassium Cl 20 mEq SR tablet PO PRN ×2 (12:36→19:23)
[2019-06-26 18:00] VITALS: BP 100/55
--- NOTE | 2019-06-26 18:34 | NUR ---
Problems reprioritized. Patient report given, questions answered & plan of care reviewed with Precious BHATIA.
--- NOTE | 2019-06-26 18:45 | NUR ---
Patient in room [facility]TH[facility] 4014. I have received report from Tara Rushing RN and had the opportunity to ask questions and assume patient care.
[2019-06-26 22:00] VITALS: BP 99/45
[2019-06-27] MEDS: pantoprazole 40MG/NS 100ML BAG 100 ML IV SCH ×2 (01:24→06:00)
[2019-06-27] MEDS: metoclopramide 5 mg/ml inj IV SCH ×2 (01:55→08:29)
[2019-06-27] MEDS: potassium Cl 20 mEq SR tablet PO PRN (03:09)
[2019-06-27 05:52] LABS: BASOPHILS # (AUTO) 0.1 X10'3 (0-0.2); BASOPHILS % (AUTO) 0.9 % (0-1); EOSINOPHILS # (AUTO) 0.3 X10'3 (0-0.9); EOSINOPHILS % (AUTO) 3.5 % (0-6); HEMATOCRIT 32.8 % (35.0-45.0); HEMOGLOBIN 11.2 g/dl (12.0-16.0); LYMPHOCYTES # (AUTO) 3.7 X10'3 (1.1-4.8); LYMPHOCYTES % (AUTO) 50.1 % (21-51); MEAN CORPUSCULAR HEMOGLOBIN 32.3 PG (27.0-31.0); MEAN CORPUSCULAR HGB CONC 34.1 g/dL (33.0-36.5); MEAN CORPUSCULAR VOLUME 94.6 FL (78-98); MEAN PLATELET VOLUME 7.6 FL (7.4-10.4); MONOCYTES # (AUTO) 0.5 X10'3 (0-0.9); MONOCYTES % (AUTO) 7.4 % (2-12); NEUTROPHILS # (AUTO) 2.8 X10'3 (1.8-7.7); NEUTROPHILS % (AUTO) 38.1 % (42-75); PLATELET COUNT 254 X10'3 (140-440); RED BLOOD COUNT 3.46 X10'6 (4.20-5.60); RED CELL DISTRIBUTION WIDTH 13.7 % (11.5-14.5); WHITE BLOOD COUNT 7.3 X10'3 (4.5-11.0)
[2019-06-27 06:00] VITALS: BP 96/52
--- NOTE | 2019-06-27 06:20 | NUR ---
Problems reprioritized. Patient report given, questions answered & plan of care reviewed with Marvin BHATIA.
[2019-06-27 06:34] LABS: ALANINE AMINOTRANSFERASE 17 U/L (12-78); ALBUMIN 2.6 G/DL (3.4-5.0); ALBUMIN/GLOBULIN RATIO 0.9 (1.1-1.5); ALKALINE PHOSPHATASE 40 IU/L (46-116); ANION GAP 11 (8-16); ASPARTATE AMINO TRANSFERASE 11 U/L (10-37); BILIRUBIN,TOTAL 0.3 MG/DL (0.1-1.0); BLOOD UREA NITROGEN 2 MG/DL (7-18); BUN/CREATININE RATIO 2.7 (6.6-38.0); CALCIUM 8.4 MG/DL (8.5-10.1); CHLORIDE 110 MMOL/L (99-107); CREATININE 0.74 MG/DL (0.40-0.90); GLUCOSE 77 MG/DL (70-104); MAGNESIUM 1.5 MG/DL (1.5-2.4); PHOSPHORUS 5.4 MG/DL (2.3-4.5); POTASSIUM 3.7 MMOL/L (3.5-5.1); SODIUM 143 MMOL/L (135-145); TOTAL CARBON DIOXIDE 22.2 MMOL/L (24-32); TOTAL PROTEIN 5.4 G/DL (6.4-8.2); eGFR 84 ML/MIN
--- NOTE | 2019-06-27 07:16 | NUR ---
Patient in room [facility]TH[facility] 4014. I have received report from JANNETTE Lang and had the opportunity to ask questions and assume patient care.
[2019-06-27] MEDS: normal saline 1000ml 1,000 ML IV SCH ×2 (07:53→23:58)
[2019-06-27] MEDS: K and/or MAG REPLACEMENT MC SCH (08:00)
[2019-06-27] MEDS: duloxetine 30mg CAPSULE.DR PO SCH (08:28)
[2019-06-27] MEDS: lactobacillus rhamnosus 10,000 MMU CELLS/CAPSULE PO SCH ×2 (08:28→22:01)
[2019-06-27] MEDS: gabapentin 300mg capsule PO SCH ×3 (08:28→22:01)
[2019-06-27] MEDS: topiramate 25mg tablet PO SCH ×2 (08:28→22:01)
[2019-06-27] MEDS: Neutra Phos packet PO SCH ×3 (08:29→21:00)
[2019-06-27] MEDS: hydrOXYzine 25 MG tablet PO SCH (08:29)
[2019-06-27] MEDS: silver sulfadiazine cream 400gm jar TP SCH (08:39)
[2019-06-27 10:00] VITALS: BP 109/53
[2019-06-27] MEDS ORDERED: metoclopramide 10mg tablet PO PRN (10:40)
--- NOTE | 2019-06-27 13:17 | NUR ---
Initial: Pt admit w/ intractable N/V along w/ erosive esophagitis and hx GERD. Pt advanced to regular diet from clears today. Receiving reglan and protonix. PO 0-25% with continued N/V noted slightly improving per MD note. No colitis from CT per GI MD note. LBM 06/24. Ensure Enlive TIDWM added for additional kcal needs given poor PO; MD notified. Pending MD verification prior to sending w/ meals. Will continue to monitor. Rec: 1. continue regular diet 2. ensure enlive TIDWM; pend MD verification prior to send on trays 3. weekly wts Addendum: 06/27/19 at [address] Amended: Links added.
[2019-06-27 18:00] VITALS: BP 93/51
[2019-06-27] MEDS: lactose-reduced food (Ensure Enlive) - 237ml bottle PO SCH (18:00)
--- NOTE | 2019-06-27 18:20 | NUR ---
Orienteer documentation: I have reviewed and agree with all interventions, assessments performed and documented by Radha BHATIA.
--- NOTE | 2019-06-27 18:32 | NUR ---
Problems reprioritized. Patient report given, questions answered & plan of care reviewed with Criss BHATIA.
[2019-06-27 22:00] VITALS: BP_SYST 126; BP_SYST 99; BP_DIAS 51; BP_DIAS 66
[2019-06-27] MEDS: pantoprazole 40mg Tablet.DR PO SCH (22:01)
[2019-06-28] MEDS: normal saline 1000ml 1,000 ML IV SCH (03:53)
--- NOTE | 2019-06-28 06:25 | NUR ---
Problems reprioritized. Patient report given, questions answered & plan of care reviewed with houston Smiley.
[2019-06-28 06:30] VITALS: BP 96/52
[2019-06-28] MEDS: K and/or MAG REPLACEMENT MC SCH (06:41)
[2019-06-28 06:49] LABS: MAGNESIUM 1.6 MG/DL (1.5-2.4); POTASSIUM 3.4 MMOL/L (3.5-5.1)
[2019-06-28] MEDS: lactobacillus rhamnosus 10,000 MMU CELLS/CAPSULE PO SCH (07:45)
[2019-06-28] MEDS: topiramate 25mg tablet PO SCH (07:46)
[2019-06-28] MEDS: gabapentin 300mg capsule PO SCH (07:46)
[2019-06-28] MEDS: duloxetine 30mg CAPSULE.DR PO SCH (07:46)
[2019-06-28] MEDS: hydrOXYzine 25 MG tablet PO SCH (07:46)
[2019-06-28] MEDS: pantoprazole 40mg Tablet.DR PO SCH (07:46)
[2019-06-28] MEDS: Neutra Phos packet PO SCH (07:46)
[2019-06-28] MEDS: lactose-reduced food (Ensure Enlive) - 237ml bottle PO SCH (07:56)
[2019-06-28] MEDS: silver sulfadiazine cream 400gm jar TP SCH (07:56)
[2019-06-28 10:00] VITALS: BP 98/53
[2019-06-28] MEDS ORDERED: METO10TA3 PO (10:20)
--- NOTE | 2019-06-28 11:13 | NUR ---
Follow up appointments and all discharge instructions gone over with pt. She verbalizes understanding. Discharged home with via wc in stable condition.
[2019-06-28] MEDS ORDERED: PANT-47 PO (17:19)
== END 2019-06-28 11:15 | disposition home or self-care (01) | DRG 382 ==
LOC: ER 13:56 → ORTHO 4S 20:39 → CMPBEDREQ 20:41
PROVIDERS: ADMIT Family Medicine; ATTEND Family Medicine
PROC: 0DB58ZX Excision of Esophagus, Via Natural or Artificial Opening Endoscopic, Diagnostic (ICD-10-PCS; principal; 2019-06-24)
DX: K22.10 Ulcer of esophagus without bleeding (principal); K52.9 Noninfective gastroenteritis and colitis, unspecified; E11.43 Type 2 diabetes mellitus with diabetic autonomic (poly)neuropathy; E78.00 Pure hypercholesterolemia, unspecified; E78.5 Hyperlipidemia, unspecified; E87.6 Hypokalemia; F32.9 Major depressive disorder, single episode, unspecified; I34.0 Nonrheumatic mitral (valve) insufficiency; J45.909 Unspecified asthma, uncomplicated; F12.90 Cannabis use, unspecified, uncomplicated; F41.9 Anxiety disorder, unspecified; G43.909 Migraine, unspecified, not intractable, without status migrainosus; F17.210 Nicotine dependence, cigarettes, uncomplicated; G89.29 Other chronic pain; N28.9 Disorder of kidney and ureter, unspecified; K21.0 Gastro-esophageal reflux disease with esophagitis; K31.84 Gastroparesis; K44.9 Diaphragmatic hernia without obstruction or gangrene; Z82.49 Family history of ischemic heart disease and other diseases of the circulatory system; Z86.010 Personal history of colon polyps; Z87.19 Personal history of other diseases of the digestive system; Z88.6 Allergy status to analgesic agent; Z88.5 Allergy status to narcotic agent; Z88.8 Allergy status to other drugs, medicaments and biological substances; Z90.49 Acquired absence of other specified parts of digestive tract; Z98.891 History of uterine scar from previous surgery; Z98.51 Tubal ligation status; Z82.3 Family history of stroke; Z79.899 Other long term (current) drug therapy
CPT/HCPCS: 36415; 43239; 70450; 71045; 76937; 80053; 80305; 80320; 81001; 81025; 82272; 83605; 83690; 83735; 84100; 84132; 84145; 85025; 87040; 87045; 87046; 87081; 87324; 87449; 88305; 89055; 96361; 96365; 96375; 99152; 99285; A4620; C9113; G0378; J0696; J0780; J1100; J1170; J1200; J1630; J1956; J2060; J2250; J2405; J2765; J3010; J3480; J3490; J7030; J7040; J8597; Z7610

== ENCOUNTER 2019-09-06 21:46 | Inpatient (IN) | payer MEDICARE, MEDICAID ==
[~2019-09-06] VITALS: Ht 154.9 cm; Wt 52.0 kg
[~2019-09-06 21:46] MED LIST changes: -CEPH500C5 PO; +FERR-97 PO; -FERR134T2 PO; +HYDR-3686 PO; +ONDA4TAB11 PO; -ONDA4TAB6 PO; -ONDA8TAB6 PO; -PHE25R PR; -POTA20TA19 PO; -SCOP1PAT16 TD; -TOPI25TA49 PO; +TOPI50TA24 PO
[2019-09-06 22:39] LABS: BASOPHILS # (AUTO) 0.1 X10'3 (0-0.2); BASOPHILS % (AUTO) 0.4 % (0-1); EOSINOPHILS % (AUTO) 0 % (0-6); HEMATOCRIT 43.7 % (35.0-45.0); HEMOGLOBIN 14.9 g/dl (12.0-16.0); LYMPHOCYTES # (AUTO) 1.9 X10'3 (1.1-4.8); LYMPHOCYTES % (AUTO) 8.9 % (21-51); MEAN CORPUSCULAR HEMOGLOBIN 31.3 PG (27.0-31.0); MEAN CORPUSCULAR HGB CONC 34.2 g/dL (33.0-36.5); MEAN CORPUSCULAR VOLUME 91.5 FL (78-98); MEAN PLATELET VOLUME 7.6 FL (7.4-10.4); MONOCYTES # (AUTO) 0.6 X10'3 (0-0.9); MONOCYTES % (AUTO) 2.7 % (2-12); PLATELET COUNT 386 X10'3 (140-440); RED BLOOD COUNT 4.77 X10'6 (4.20-5.60); RED CELL DISTRIBUTION WIDTH 12.9 % (11.5-14.5); WHITE BLOOD COUNT 21.6 X10'3 (4.5-11.0)
[2019-09-06 22:49] LABS: ALANINE AMINOTRANSFERASE 24 U/L (12-78); ALBUMIN 4.5 G/DL (3.4-5.0); ALBUMIN/GLOBULIN RATIO 0.9 (1.1-1.5); ALKALINE PHOSPHATASE 84 IU/L (46-116); ANION GAP 17 (8-16); ASPARTATE AMINO TRANSFERASE 14 U/L (10-37); BILIRUBIN,TOTAL 0.5 MG/DL (0.1-1.0); BLOOD UREA NITROGEN 20 MG/DL (7-18); BUN/CREATININE RATIO 18.5 (6.6-38.0); CALCIUM 10.4 MG/DL (8.5-10.1); CHLORIDE 102 MMOL/L (99-107); CREATININE 1.08 MG/DL (0.40-0.90); GLUCOSE 223 MG/DL (70-104); SODIUM 137 MMOL/L (135-145); TOTAL CARBON DIOXIDE 17.7 MMOL/L (24-32); TOTAL PROTEIN 9.5 G/DL (6.4-8.2); eGFR 54 ML/MIN
[2019-09-06] MEDS ORDERED: diphenhydrAMINE 50 mg/ml inj IV ONE (23:55)
[2019-09-06] MEDS ORDERED: metoclopramide 5 mg/ml inj IV ONE (23:55)
[2019-09-06] MEDS ORDERED: morphine 4 MG/ML inj SYRINge IV ONE (23:55)
[2019-09-07] MEDS ORDERED: normal saline 1000ML IV soln IVB ONE (01:25)
[2019-09-07] MEDS ORDERED: haloperidol lactate 5mg/ml inj IM ONE (01:40)
--- NOTE | 2019-09-07 03:00 | NUR ---
pt up to bsc to void and provide ua. assisted by family member. reprots pain to abdomen of 6 out of 10. vss.
[2019-09-07] MEDS ORDERED: PANT40TA4 PO (03:20)
[2019-09-07] MEDS ORDERED: METO-292 PO (03:20)
[2019-09-07 03:25] LABS: COLOR,URINE YELLOW (Yellow); GLUCOSE, URINE NEGATIVE (Neg); KETONES,URINE >=80 mg/dl (Neg); LEUKOCYTE ESTERASE ,URINE NEGATIVE (Neg); NITRITES, URINE NEGATIVE (Neg); OCCULT BLOOD,URINE MODERATE (Neg); PROTEIN,URINE 100 mg/dl (Neg); UROBILINOGEN,URINE 0.2 E.U/dL (0.2-1.0)
[2019-09-07 03:30] LABS: CLARITY,URINE SLIGHTLY CLOUDY (Clear); UA COLLECTION TYPE OTHER
[2019-09-07 03:33] LABS: BACTERIA,URINE FEW /HPF (Neg); SQUAMOUS EPITHELIAL CELL,UR FEW /LPF (FEW); WBC,URINE 0-4 /HPF (0-4)
[2019-09-07 03:34] LABS: FINE GRANULAR CAST 0-3 /LPF (NEGATIVE); MUCUS STRANDS MODERATE /LPF (Neg)
[2019-09-07] MEDS ORDERED: magnesium 2GM in 50ml NS 50 ML IV PRN (03:55)
[2019-09-07] MEDS ORDERED: docusate sod 100mg capsule PO PRN (03:55)
[2019-09-07] MEDS ORDERED: potassium CL 10mEq/100ml bag 100 ML IV PRN ×2 (03:55)
[2019-09-07] MEDS ORDERED: magnesium 4gm in 100ml NS 100 ML IV PRN (03:55)
[2019-09-07] MEDS ORDERED: acetaminophen 325mg tablet PO PRN (03:55)
[2019-09-07] MEDS ORDERED: metoclopramide 5 mg/ml inj IV PRN (03:55)
[2019-09-07] MEDS ORDERED: mag hydrox/Alum hydrox/simeth 30ml oral suspension PO PRN (03:55)
[2019-09-07 04:21] LABS: ABG BASE EXCESS -5.7 mmol/L (-2.0-3.0); ABG HCO3 17.7 mmol/L (22.0-26.0); ABG OXYGEN SATURATION 96.9 % (95-98); ABG PCO2 (T) 28.5 mmHg (35.0-45.0); ABG PH (T) 7.409 (7.350-7.450); ABG PO2 (T) 92.4 mmHg (83-108); FCOHb 1.1 % (0.5-1.5); FMetHb 0.3 % (0.3-1.12); FO2Hb 95.5 % (94-100); PATIENT TEMPERATURE 36.6; RESPIRATORY RATE (OBSERVED) 20 b/min; TOTAL HEMOGLOBIN 13.7 G/dl (12.0-16.0)
--- NOTE | 2019-09-07 04:35 | NUR ---
Received report from JANNETTE Velez. Awaiting patient arrival to the floor.
--- NOTE | 2019-09-07 04:50 | NUR ---
Patient arrived to the floor via gurney. Placed in room 360B. Patient is awake and alert on room air, in no apparent distress. Call light and items of frequent use within reach. Will continue to monitor.
[2019-09-07 05:00] VITALS: BP 142/68
[2019-09-07] MEDS: normal saline 1000ml 1,000 ML IV SCH ×3 (05:04→16:30)
[2019-09-07] MEDS: pantoprazole 40MG/NS 100ML BAG 100 ML IV SCH ×5 (05:07→21:00)
--- NOTE | 2019-09-07 06:10 | NUR ---
Patient in room [facility] 360. I have received report from JANNETTE Smith and had the opportunity to ask questions and assume patient care.
--- NOTE | 2019-09-07 06:20 | NUR ---
Problems reprioritized. Patient report given, questions answered & plan of care reviewed with JANNETTE Fraga.
[2019-09-07 07:00] VITALS: BP 141/61
[2019-09-07] MEDS: K and/or MAG REPLACEMENT MC SCH (07:42)
[2019-09-07] MEDS: enoxaparin 40mg/0.4ml syringe SQ SCH (09:06)
[2019-09-07] MEDS: ondansetron/PF 4mg/2ml inj IV PRN ×3 (09:49→22:45)
[2019-09-07 10:54] LABS: HEMOGLOBIN A1C 5.3 % (4.5-6.2)
[2019-09-07 11:30] VITALS: BP 151/69
[2019-09-07] MEDS: diphenhydrAMINE 50 mg/ml inj IV PRN (11:45)
[2019-09-07] MEDS: metoclopramide 5 mg/ml inj IV SCH ×2 (13:55→20:11)
[2019-09-07] MEDS: LORazepam 2 mg/ml vial IV SCH ×2 (13:55→20:16)
--- NOTE | 2019-09-07 18:30 | NUR ---
Problems reprioritized. Patient report given, questions answered & plan of care reviewed with JANNETTE Schuster.
--- NOTE | 2019-09-07 18:42 | NUR ---
Patient in room [facility] 360. I have received report from JANNETTE Fraga and had the opportunity to ask questions and assume patient care.
[2019-09-07 20:00] VITALS: BP 135/52
[2019-09-08] VITALS: BP 142/67
[2019-09-08] MEDS: pantoprazole 40MG/NS 100ML BAG 100 ML IV SCH ×5 (01:09→18:09)
[2019-09-08] MEDS: LORazepam 2 mg/ml vial IV SCH ×4 (02:51→22:28)
[2019-09-08] MEDS: metoclopramide 5 mg/ml inj IV SCH ×4 (02:54→22:28)
[2019-09-08] MEDS: diphenhydrAMINE 50 mg/ml inj IV PRN ×2 (02:56→16:08)
[2019-09-08] MEDS: normal saline 1000ml 1,000 ML IV SCH ×2 (04:29→18:09)
[2019-09-08] MEDS: ondansetron/PF 4mg/2ml inj IV PRN ×3 (05:19→18:49)
[2019-09-08 05:58] LABS: BASOPHILS % (AUTO) 0.3 % (0-1); EOSINOPHILS % (AUTO) 0 % (0-6); HEMATOCRIT 37.3 % (35.0-45.0); HEMOGLOBIN 12.7 g/dl (12.0-16.0); LYMPHOCYTES # (AUTO) 2.9 X10'3 (1.1-4.8); MEAN CORPUSCULAR VOLUME 91.2 FL (78-98); MEAN PLATELET VOLUME 7.8 FL (7.4-10.4); MONOCYTES # (AUTO) 1.1 X10'3 (0-0.9); MONOCYTES % (AUTO) 7.7 % (2-12); NEUTROPHILS # (AUTO) 10.4 X10'3 (1.8-7.7); PLATELET COUNT 300 X10'3 (140-440); RED BLOOD COUNT 4.09 X10'6 (4.20-5.60); RED CELL DISTRIBUTION WIDTH 12.9 % (11.5-14.5); WHITE BLOOD COUNT 14.5 X10'3 (4.5-11.0)
[2019-09-08] MEDS ORDERED: haloperidol lactate 5mg/ml inj IM ONE ×2 (06:00→06:50)
[2019-09-08 06:20] LABS: ALANINE AMINOTRANSFERASE 20 U/L (12-78); ALBUMIN 3.8 G/DL (3.4-5.0); ALBUMIN/GLOBULIN RATIO 0.9 (1.1-1.5); ANION GAP 15 (8-16); ASPARTATE AMINO TRANSFERASE 25 U/L (10-37); BILIRUBIN,TOTAL 0.6 MG/DL (0.1-1.0); BLOOD UREA NITROGEN 7 MG/DL (7-18); BUN/CREATININE RATIO 8.2 (6.6-38.0); CHLORIDE 103 MMOL/L (99-107); CREATININE 0.85 MG/DL (0.40-0.90); GLUCOSE 91 MG/DL (70-104); MAGNESIUM 1.7 MG/DL (1.5-2.4); POTASSIUM 3.2 MMOL/L (3.5-5.1); SODIUM 138 MMOL/L (135-145); TOTAL CARBON DIOXIDE 20.3 MMOL/L (24-32); eGFR 72 ML/MIN
--- NOTE | 2019-09-08 06:20 | NUR ---
Problems reprioritized. Patient report given, questions answered & plan of care reviewed with JANNETTE Fraga.
[2019-09-08 06:21] LABS: ALKALINE PHOSPHATASE 60 IU/L (46-116)
[2019-09-08 06:30] VITALS: BP 153/67
--- NOTE | 2019-09-08 07:13 | NUR ---
Respirations before admin of Haldol 12 Addendum: 09/08/19 at 0714 by Amelia REYNOLDS Amended: Links added.
[2019-09-08] MEDS: K and/or MAG REPLACEMENT MC SCH (07:21)
--- NOTE | 2019-09-08 07:33 | NUR ---
Patient in room [facility] 360. I have received report from JANNETTE Schuster and had the opportunity to ask questions and assume patient care.
[2019-09-08] MEDS: enoxaparin 40mg/0.4ml syringe SQ SCH (08:06)
[2019-09-08] MEDS: potassium Cl 20 mEq SR tablet PO PRN ×3 (08:06→16:06)
[2019-09-08 11:30] VITALS: BP 132/64
[2019-09-08] MEDS: morphine 2 MG/ML inj. syringe IV PRN (12:55)
[2019-09-08 16:26] VITALS: BP 140/78
--- NOTE | 2019-09-08 18:10 | NUR ---
Problems reprioritized. Patient report given, questions answered & plan of care reviewed with JANNETTE Mckeon.
--- NOTE | 2019-09-08 18:46 | NUR ---
Patient in room [facility] 360. I have received report from JANNETTE Fraga and had the opportunity to ask questions and assume patient care.
[2019-09-08 20:00] VITALS: BP 122/77
[2019-09-09] VITALS: BP 96/52
[2019-09-09] MEDS: LORazepam 2 mg/ml vial IV SCH ×2 (01:44→08:29)
[2019-09-09] MEDS: metoclopramide 5 mg/ml inj IV SCH ×2 (01:44→08:28)
[2019-09-09] MEDS: pantoprazole 40MG/NS 100ML BAG 100 ML IV SCH ×3 (01:45→08:30)
[2019-09-09] MEDS: normal saline 1000ml 1,000 ML IV SCH (05:21)
[2019-09-09 05:54] LABS: BASOPHILS # (AUTO) 0.1 X10'3 (0-0.2); BASOPHILS % (AUTO) 0.8 % (0-1); EOSINOPHILS # (AUTO) 0.1 X10'3 (0-0.9); EOSINOPHILS % (AUTO) 0.8 % (0-6); HEMOGLOBIN 11.4 g/dl (12.0-16.0); LYMPHOCYTES # (AUTO) 3.7 X10'3 (1.1-4.8); LYMPHOCYTES % (AUTO) 46.2 % (21-51); MEAN CORPUSCULAR HEMOGLOBIN 31.4 PG (27.0-31.0); MEAN CORPUSCULAR HGB CONC 34.4 g/dL (33.0-36.5); MEAN CORPUSCULAR VOLUME 91.2 FL (78-98); MEAN PLATELET VOLUME 7.4 FL (7.4-10.4); MONOCYTES # (AUTO) 0.9 X10'3 (0-0.9); MONOCYTES % (AUTO) 11.1 % (2-12); NEUTROPHILS # (AUTO) 3.3 X10'3 (1.8-7.7); NEUTROPHILS % (AUTO) 41.1 % (42-75); PLATELET COUNT 227 X10'3 (140-440); RED BLOOD COUNT 3.62 X10'6 (4.20-5.60); RED CELL DISTRIBUTION WIDTH 12.9 % (11.5-14.5)
[2019-09-09 06:02] LABS: ANION GAP 12 (8-16); BILIRUBIN,TOTAL 0.7 MG/DL (0.1-1.0); BLOOD UREA NITROGEN 6 MG/DL (7-18); BUN/CREATININE RATIO 7.2 (6.6-38.0); CALCIUM 8.9 MG/DL (8.5-10.1); CHLORIDE 105 MMOL/L (99-107); CREATININE 0.83 MG/DL (0.40-0.90); GLUCOSE 77 MG/DL (70-104); MAGNESIUM 1.7 MG/DL (1.5-2.4); SODIUM 141 MMOL/L (135-145); TOTAL CARBON DIOXIDE 23.8 MMOL/L (24-32); eGFR 74 ML/MIN
[2019-09-09 06:03] LABS: ALANINE AMINOTRANSFERASE 19 U/L (12-78); ALBUMIN 3.2 G/DL (3.4-5.0); ALBUMIN/GLOBULIN RATIO 0.9 (1.1-1.5); ALKALINE PHOSPHATASE 48 IU/L (46-116); ASPARTATE AMINO TRANSFERASE 24 U/L (10-37); TOTAL PROTEIN 6.6 G/DL (6.4-8.2)
[2019-09-09 06:30] VITALS: BP 117/53
--- NOTE | 2019-09-09 06:40 | NUR ---
Patient in room [facility] 360. I have received report from JANNETTE Mckeon and had the opportunity to ask questions and assume patient care.
--- NOTE | 2019-09-09 06:51 | NUR ---
Problems reprioritized. Patient report given, questions answered & plan of care reviewed with JANNETTE Fraga.
[2019-09-09] MEDS: K and/or MAG REPLACEMENT MC SCH (07:31)
[2019-09-09] MEDS: enoxaparin 40mg/0.4ml syringe SQ SCH (08:29)
[2019-09-09] MEDS: potassium Cl 20 mEq SR tablet PO PRN ×3 (08:30→17:00)
[2019-09-09] MEDS ORDERED: FLU VACC QS2019-20 36MOS UP/PF 60 MCG/0.5 ML SYRINGE IMVAC ONE (10:00)
[2019-09-09 11:00] VITALS: BP 117/53
[2019-09-09] MEDS ORDERED: LORazepam 2 mg/ml vial IV PRN (13:10)
[2019-09-09] MEDS ORDERED: metoclopramide 5 mg/ml inj IV PRN (13:15)
[2019-09-09] MEDS: acetaminophen 325mg tablet PO PRN ×2 (15:40→22:40)
--- NOTE | 2019-09-09 17:55 | NUR ---
Student documentation: I have reviewed all interventions, assessments performed and documented by Ashley Granados
--- NOTE | 2019-09-09 18:20 | NUR ---
Patient in room [facility] 360. I have received report from Philly BHATIA and had the opportunity to ask questions and assume patient care.
--- NOTE | 2019-09-09 18:35 | NUR ---
Problems reprioritized. Patient report given, questions answered & plan of care reviewed with JANNETTE Diez.
[2019-09-09] MEDS: morphine 2 MG/ML inj. syringe IV PRN (19:16)
[2019-09-09 20:00] VITALS: BP 107/55
[2019-09-10] VITALS: BP 101/54
[2019-09-10 06:20] LABS: BASOPHILS # (AUTO) 0.1 X10'3 (0-0.2); BASOPHILS % (AUTO) 0.9 % (0-1); EOSINOPHILS # (AUTO) 0.2 X10'3 (0-0.9); EOSINOPHILS % (AUTO) 2.3 % (0-6); HEMATOCRIT 37.6 % (35.0-45.0); HEMOGLOBIN 12.7 g/dl (12.0-16.0); LYMPHOCYTES # (AUTO) 2.7 X10'3 (1.1-4.8); LYMPHOCYTES % (AUTO) 35.3 % (21-51); MEAN CORPUSCULAR HEMOGLOBIN 31.1 PG (27.0-31.0); MEAN CORPUSCULAR HGB CONC 33.8 g/dL (33.0-36.5); MEAN CORPUSCULAR VOLUME 92.3 FL (78-98); MEAN PLATELET VOLUME 7.7 FL (7.4-10.4); MONOCYTES # (AUTO) 0.9 X10'3 (0-0.9); MONOCYTES % (AUTO) 11.4 % (2-12); NEUTROPHILS # (AUTO) 3.9 X10'3 (1.8-7.7); NEUTROPHILS % (AUTO) 50.1 % (42-75); PLATELET COUNT 250 X10'3 (140-440); RED BLOOD COUNT 4.08 X10'6 (4.20-5.60); RED CELL DISTRIBUTION WIDTH 12.9 % (11.5-14.5); WHITE BLOOD COUNT 7.8 X10'3 (4.5-11.0)
--- NOTE | 2019-09-10 06:30 | NUR ---
Patient in room RU[facility] 360. I have received report from Rg BHATIA and had the opportunity to ask questions and assume patient care.
--- NOTE | 2019-09-10 06:31 | NUR ---
Problems reprioritized. Patient report given, questions answered & plan of care reviewed with Librado BHATIA.
[2019-09-10 06:37] LABS: ALANINE AMINOTRANSFERASE 19 U/L (12-78); ALBUMIN 3.5 G/DL (3.4-5.0); ALKALINE PHOSPHATASE 50 IU/L (46-116); ANION GAP 5 (8-16); ASPARTATE AMINO TRANSFERASE 17 U/L (10-37); BILIRUBIN,TOTAL 0.5 MG/DL (0.1-1.0); BLOOD UREA NITROGEN 5 MG/DL (7-18); BUN/CREATININE RATIO 5.9 (6.6-38.0); CALCIUM 9.5 MG/DL (8.5-10.1); CHLORIDE 107 MMOL/L (99-107); CREATININE 0.85 MG/DL (0.40-0.90); GLUCOSE 85 MG/DL (70-104); MAGNESIUM 1.8 MG/DL (1.5-2.4); POTASSIUM 4.1 MMOL/L (3.5-5.1); SODIUM 140 MMOL/L (135-145); TOTAL CARBON DIOXIDE 27.8 MMOL/L (24-32); eGFR 72 ML/MIN
[2019-09-10 07:00] VITALS: BP 98/58
[2019-09-10] MEDS ORDERED: pantoprazole 40mg Tablet.DR PO SCH (07:30)
[2019-09-10] MEDS: enoxaparin 40mg/0.4ml syringe SQ SCH (08:41)
--- NOTE | 2019-09-10 08:57 | NUR ---
Discharge instructions given to patient, patient verbalized of understanding of all instructions made. Peripheral IV catheter removed, tip intact. Instructed patient to ensure she has all her belongings with her
== END 2019-09-10 10:06 | disposition home or self-care (01) | DRG 74 ==
LOC: ER 21:47 → ED HOLD 09-07 04:20 → EDBEDREQ 09-07 04:38 → SUR 3N 09-07 05:01
PROVIDERS: ADMIT Family Medicine; ATTEND Internal Medicine
DX: E11.43 Type 2 diabetes mellitus with diabetic autonomic (poly)neuropathy (principal); N17.9 Acute kidney failure, unspecified; K31.84 Gastroparesis; F15.10 Other stimulant abuse, uncomplicated; D72.829 Elevated white blood cell count, unspecified; E78.00 Pure hypercholesterolemia, unspecified; E86.0 Dehydration; F12.90 Cannabis use, unspecified, uncomplicated; E87.6 Hypokalemia; F32.9 Major depressive disorder, single episode, unspecified; F41.9 Anxiety disorder, unspecified; G43.909 Migraine, unspecified, not intractable, without status migrainosus; G89.29 Other chronic pain; R79.89 Other specified abnormal findings of blood chemistry; F17.210 Nicotine dependence, cigarettes, uncomplicated; I34.0 Nonrheumatic mitral (valve) insufficiency; J45.909 Unspecified asthma, uncomplicated; N20.0 Calculus of kidney; Z79.899 Other long term (current) drug therapy; Z82.49 Family history of ischemic heart disease and other diseases of the circulatory system; Z87.19 Personal history of other diseases of the digestive system; Z23 Encounter for immunization; Z88.6 Allergy status to analgesic agent; Z88.8 Allergy status to other drugs, medicaments and biological substances; Z90.49 Acquired absence of other specified parts of digestive tract; Z98.51 Tubal ligation status; Z98.891 History of uterine scar from previous surgery; Z82.3 Family history of stroke
CPT/HCPCS: 36415; 36600; 74176; 80053; 81001; 82803; 83036; 83605; 83735; 84145; 85018; 85025; 87081; 96361; 96372; 96374; 96375; 96376; 99285; C9113; G0378; J1200; J1630; J1650; J2060; J2270; J2405; J2765; J7030; Q2037

== ENCOUNTER 2019-10-22 19:43 | Inpatient (IN) | payer MEDICARE, MEDICAID ==
[~2019-10-22] VITALS: Ht 154.9 cm; Wt 57.7 kg
[~2019-10-22 19:43] MED LIST changes: -FERR-97 PO; -HYDR-3686 PO; +METO-292 PO; -METO10TA3 PO; -PANT-47 PO; +PANT40TA4 PO; +SIMV-42 PO; -SIMV20TA5 PO
[2019-10-22] MEDS ORDERED: ondansetron/PF 4mg/2ml inj IV ONE (20:05)
[2019-10-22] MEDS ORDERED: normal saline 1000ML IV soln IVB ONE (20:05)
[2019-10-22] MEDS ORDERED: haloperidol lactate 5mg/ml inj IM ONE (20:25)
[2019-10-22] MEDS ORDERED: pantoprazole 40 MG vial IV ONE (20:30)
[2019-10-22] MEDS ORDERED: famotidine/PF 10 mg/ml inj IV ONE (20:30)
[2019-10-22] MEDS ORDERED: proCHLORperazine 10 MG/2 ml inj IV ONE (20:50)
[2019-10-22 20:51] LABS: BASOPHILS # (AUTO) 0.1 X10'3 (0-0.2); BASOPHILS % (AUTO) 0.4 % (0-1); EOSINOPHILS # (AUTO) 0.1 X10'3 (0-0.9); EOSINOPHILS % (AUTO) 0.3 % (0-6); HEMATOCRIT 43.6 % (35.0-45.0); HEMOGLOBIN 14.5 g/dl (12.0-16.0); LYMPHOCYTES # (AUTO) 3.5 X10'3 (1.1-4.8); LYMPHOCYTES % (AUTO) 12.1 % (21-51); MEAN CORPUSCULAR HGB CONC 33.4 g/dL (33.0-36.5); MEAN CORPUSCULAR VOLUME 92.9 FL (78-98); MEAN PLATELET VOLUME 7.5 FL (7.4-10.4); MONOCYTES # (AUTO) 1.7 X10'3 (0-0.9); MONOCYTES % (AUTO) 5.8 % (2-12); NEUTROPHILS # (AUTO) 23.4 X10'3 (1.8-7.7); NEUTROPHILS % (AUTO) 81.4 % (42-75); PLATELET COUNT 444 X10'3 (140-440); RED BLOOD COUNT 4.69 X10'6 (4.20-5.60); RED CELL DISTRIBUTION WIDTH 13.6 % (11.5-14.5)
[2019-10-22 20:54] LABS: ALANINE AMINOTRANSFERASE 18 U/L (12-78); ALBUMIN 4.2 G/DL (3.4-5.0); ALBUMIN/GLOBULIN RATIO 0.9 (1.1-1.5); ALKALINE PHOSPHATASE 78 IU/L (46-116); ANION GAP 24 (8-16); ASPARTATE AMINO TRANSFERASE 21 U/L (10-37); BILIRUBIN,TOTAL 0.6 MG/DL (0.1-1.0); BLOOD UREA NITROGEN 19 MG/DL (7-18); BUN/CREATININE RATIO 18.1 (6.6-38.0); CALCIUM 9.8 MG/DL (8.5-10.1); CHLORIDE 101 MMOL/L (99-107); CREATININE 1.05 MG/DL (0.40-0.90); GLUCOSE 203 MG/DL (70-104); LIPASE 66 U/L (73-393); POTASSIUM 3.2 MMOL/L (3.5-5.1); SODIUM 140 MMOL/L (135-145); TOTAL CARBON DIOXIDE 15.1 MMOL/L (24-32); TOTAL PROTEIN 8.7 G/DL (6.4-8.2); eGFR 56 ML/MIN
[2019-10-22 20:57] LABS: WHITE BLOOD COUNT 28.7 X10'3 (4.5-11.0)
--- NOTE | 2019-10-22 21:00 | NUR ---
Ambulated pt to the bathroom where she failed to produce a urine specimen.
[2019-10-22] MEDS ORDERED: normal saline 1000ML IV soln IV ONE (21:15)
[2019-10-22] MEDS ORDERED: CefTRIAXone 2gm/D5W 50ml 50 ML IV ONE (21:15)
[2019-10-22 21:30] LABS: ABG BASE EXCESS -10.9 mmol/L (-2.0-3.0); ABG HCO3 14.2 mmol/L (22.0-26.0); ABG OXYGEN SATURATION 95.4 % (95-98); ABG PCO2 (T) 29.6 mmHg (35.0-45.0); ABG PH (T) 7.298 (7.350-7.450); ABG PO2 (T) 87.4 mmHg (83-108); ALLEN'S TEST Positive; FCOHb 2.3 % (0.5-1.5); FMetHb 0.3 % (0.3-1.12); FO2Hb 92.9 % (94-100); PATIENT TEMPERATURE 36.8; TOTAL HEMOGLOBIN 13.4 G/dl (12.0-16.0)
[2019-10-22 22:28] LABS: TOTAL CELLS COUNTED 100
[2019-10-22 22:29] LABS: PLATELET ESTIMATE INCREASED
[2019-10-22 22:44] LABS: CLARITY,URINE CLEAR (Clear); COLOR,URINE YELLOW (Yellow); GLUCOSE, URINE NEGATIVE (Neg); KETONES,URINE >=80 mg/dl (Neg); LEUKOCYTE ESTERASE ,URINE NEGATIVE (Neg); NITRITES, URINE NEGATIVE (Neg); OCCULT BLOOD,URINE SMALL (Neg); PROTEIN,URINE NEGATIVE (Neg); UA COLLECTION TYPE CLN CATCH MIDSTREAM; URINE AMPHETAMINE SCREEN NEGATIVE (Neg); URINE BARBITUATE SCREEN NEGATIVE (Neg); URINE BENZODIAZEPINES SCREEN NEGATIVE (Neg); URINE CANNABINOID SCREEN POSITIVE (Neg); URINE COCAINE SCREEN NEGATIVE (Neg); URINE METHADONE SCREEN NEGATIVE (Neg); URINE OPIATE SCREEN NEGATIVE (Neg); URINE PHENCYCLIDINE SCREEN NEGATIVE (Neg); UROBILINOGEN,URINE 0.2 E.U/dL (0.2-1.0)
[2019-10-22 22:53] LABS: BACTERIA,URINE FEW /HPF (Neg); MUCUS STRANDS FEW /LPF (Neg); RBC,URINE 0-2 /HPF (0-2); SQUAMOUS EPITHELIAL CELL,UR FEW /LPF (FEW); WBC,URINE 0-4 /HPF (0-4)
[2019-10-22] MEDS ORDERED: normal saline 1000ml 1,000 ML IV SCH (22:53)
[2019-10-22] MEDS ORDERED: potassium CL 10mEq/100ml bag 100 ML IV PRN (22:55)
[2019-10-22] MEDS ORDERED: magnesium hydroxide 30ml (MOM) UD suspension PO PRN (22:55)
[2019-10-22] MEDS ORDERED: magnesium 2GM in 50ml NS 50 ML IV PRN (22:55)
[2019-10-22] MEDS ORDERED: magnesium 4gm in 100ml NS 100 ML IV PRN (22:55)
[2019-10-22] MEDS ORDERED: morphine 2 MG/ML inj. syringe IV PRN ×2 (22:55)
[2019-10-22] MEDS ORDERED: acetaminophen 325mg tablet PO PRN (22:55)
[2019-10-22] MEDS ORDERED: magnesium Cl slow-release 64mg tablet PO PRN (22:55)
[2019-10-22] MEDS ORDERED: mag hydrox/Alum hydrox/simeth 30ml oral suspension PO PRN (22:55)
--- NOTE | 2019-10-23 01:11 | NUR ---
patient brought to room. vomiting green bile looking emesis. tele placed and MRSA swab completed
[2019-10-23] MEDS: potassium CL 10mEq/100ml bag 100 ML IV PRN ×2 (01:23→03:54)
[2019-10-23 01:30] VITALS: BP 121/64
[2019-10-23] MEDS: proCHLORperazine 10 MG/2 ml inj IV PRN ×4 (01:33→20:47)
[2019-10-23] MEDS ORDERED: non-formulary drug (Ondansetron HCl 1 TAB) PO PRN (03:25)
[2019-10-23] MEDS: ondansetron/PF 4mg/2ml inj IV PRN ×3 (03:53→23:21)
[2019-10-23] MEDS: haloperidol lactate 5mg/ml inj IM PRN ×2 (03:54→21:45)
[2019-10-23 06:00] VITALS: BP 135/60
--- NOTE | 2019-10-23 06:13 | NUR ---
Problems reprioritized. Patient report given, questions answered & plan of care reviewed with JANNETTE Rushing.
[2019-10-23 06:40] LABS: BASOPHILS % (AUTO) 0.3 % (0-1); EOSINOPHILS % (AUTO) 0 % (0-6); HEMOGLOBIN 13.5 g/dl (12.0-16.0); LYMPHOCYTES # (AUTO) 1.3 X10'3 (1.1-4.8); LYMPHOCYTES % (AUTO) 9.5 % (21-51); MEAN CORPUSCULAR HEMOGLOBIN 30.7 PG (27.0-31.0); MEAN CORPUSCULAR HGB CONC 32.8 g/dL (33.0-36.5); MEAN CORPUSCULAR VOLUME 93.7 FL (78-98); MEAN PLATELET VOLUME 7.4 FL (7.4-10.4); MONOCYTES # (AUTO) 0.4 X10'3 (0-0.9); MONOCYTES % (AUTO) 2.7 % (2-12); NEUTROPHILS # (AUTO) 11.7 X10'3 (1.8-7.7); NEUTROPHILS % (AUTO) 87.5 % (42-75); PLATELET COUNT 309 X10'3 (140-440); RED BLOOD COUNT 4.38 X10'6 (4.20-5.60); RED CELL DISTRIBUTION WIDTH 13.2 % (11.5-14.5); WHITE BLOOD COUNT 13.4 X10'3 (4.5-11.0)
[2019-10-23 06:53] LABS: ALBUMIN 3.8 G/DL (3.4-5.0); ANION GAP 21 (8-16); BLOOD UREA NITROGEN 8 MG/DL (7-18); BUN/CREATININE RATIO 9.9 (6.6-38.0); CALCIUM 8.7 MG/DL (8.5-10.1); CHLORIDE 102 MMOL/L (99-107); CREATININE 0.81 MG/DL (0.40-0.90); GLUCOSE 136 MG/DL (70-104); MAGNESIUM 1.7 MG/DL (1.5-2.4); PHOSPHORUS 2.7 MG/DL (2.3-4.5); SODIUM 137 MMOL/L (135-145); eGFR 76 ML/MIN
--- NOTE | 2019-10-23 06:58 | NUR ---
Patient in room [facility]TH[facility] 4014. I have received report from Rocío BHATIA and had the opportunity to ask questions and assume patient care.
[2019-10-23 07:00] LABS: TOTAL CARBON DIOXIDE 14.2 MMOL/L (24-32)
--- NOTE | 2019-10-23 07:16 | NUR ---
Сергей [id number] Re: Dariana Tierney. CO2 14.2 from 15.1 Can we change her Reglan med to IV?
[2019-10-23] MEDS: K and/or MAG REPLACEMENT MC SCH (07:46)
[2019-10-23] MEDS: sodium bicarbonate (8.4%) inj. 100 MEQ in dextrose 5%-water 1,000 ML IV SCH ×2 (07:59→19:42)
[2019-10-23] MEDS: gabapentin 300mg capsule PO SCH ×3 (08:00→20:50)
[2019-10-23] MEDS: topiramate 25mg tablet PO SCH ×2 (08:00→20:50)
[2019-10-23] MEDS ORDERED: metoclopramide 10mg tablet PO SCH (08:00)
[2019-10-23] MEDS: duloxetine 30mg CAPSULE.DR PO SCH (08:00)
[2019-10-23] MEDS: enoxaparin 40mg/0.4ml syringe SQ SCH (08:02)
[2019-10-23 10:00] VITALS: BP 141/71
--- NOTE | 2019-10-23 10:09 | NUR ---
patient nauseated and can not hold anything down. Addendum: 10/23/19 at 1010 by Сергей Santiago RN Amended: Links added.
[2019-10-23] MEDS: metoclopramide 5 mg/ml inj IV PRN ×2 (12:22→19:34)
--- NOTE | 2019-10-23 14:31 | NUR ---
Malnutrition consult. Patient presented to ED with c/o abdominal pain and intractible nausea and vomiting up to 10/15 times for three days. Has history of gastroparesis and takes reglan at home. History of DM, is well controlled with A1c 5.1%. Per ED note she was able to keep down nutrition when in ED, however today cannot keep anything down per RN notes. Has worsening diarrhea as well. Current weight is 57.73 kg patient stated weight. Weight is stable per documented weight history. No edema. No malnutrition at this time. Pending workup for gastroenteritis. Will continue to follow and monitor GI symptoms and PO Intake. Addendum: 10/23/19 at [address] Amended: Links added.
[2019-10-23] MEDS: HYDROcodone/acetaminophen 5mg/325mg tablet PO PRN (15:54)
[2019-10-23 18:00] VITALS: BP 104/59
--- NOTE | 2019-10-23 18:23 | NUR ---
Problems reprioritized. Patient report given, questions answered & plan of care reviewed with Hilda BHATIA.
--- NOTE | 2019-10-23 18:30 | NUR ---
Patient in room ORTH[facility] 4014. I have received report from Сергей BHATIA and had the opportunity to ask questions and assume patient care.
[2019-10-23] MEDS: pantoprazole 40 MG vial IV SCH (19:38)
[2019-10-23] MEDS: atorvastatin 10mg tablet PO SCH (20:50)
[2019-10-23] MEDS: lactobacillus rhamnosus 10,000 MMU CELLS/CAPSULE PO SCH (20:50)
[2019-10-23] MEDS: CefTRIAXone 2gm/D5W 50ml 50 ML IV SCH (20:54)
[2019-10-23] MEDS: diatr meglu/diatrizoate 30ml oral sol.-(3 dose) bottle PO SCH ×2 (21:22→23:07)
--- NOTE | 2019-10-23 21:37 | NUR ---
Patient vomited oral contrast. Will give medication for vomiting and reattempt oral contrast.
[2019-10-23 22:00] VITALS: BP 163/73
[2019-10-23] MEDS: diphenhydrAMINE 50 mg/ml inj IV PRN (23:33)
--- NOTE | 2019-10-24 | NUR ---
Patient vomited oral contrast given. MD called and gave one time order for med and attempt oral contrast one more time.
[2019-10-24] MEDS ORDERED: proCHLORperazine 10 MG/2 ml inj IV ONE (00:05)
[2019-10-24] MEDS: diatr meglu/diatrizoate 30ml oral sol.-(3 dose) bottle PO SCH ×3 (00:28→20:38)
--- NOTE | 2019-10-24 00:30 | NUR ---
Patient refusing to take oral contrast
[2019-10-24] MEDS: metoclopramide 5 mg/ml inj IV PRN (01:59)
[2019-10-24] MEDS: proCHLORperazine 10 MG/2 ml inj IV PRN (03:33)
--- NOTE | 2019-10-24 06:31 | NUR ---
Problems reprioritized. Patient report given, questions answered & plan of care reviewed with Leona BHATIA.
[2019-10-24 06:56] VITALS: BP 100/57
[2019-10-24 07:08] LABS: BASOPHILS % (AUTO) 0.5 % (0-1); EOSINOPHILS % (AUTO) 0.4 % (0-6); HEMATOCRIT 35.8 % (35.0-45.0); HEMOGLOBIN 12.4 g/dl (12.0-16.0); MEAN CORPUSCULAR HEMOGLOBIN 31.7 PG (27.0-31.0); MEAN CORPUSCULAR HGB CONC 34.7 g/dL (33.0-36.5); MEAN CORPUSCULAR VOLUME 91.4 FL (78-98); MEAN PLATELET VOLUME 7.5 FL (7.4-10.4); MONOCYTES # (AUTO) 0.9 X10'3 (0-0.9); MONOCYTES % (AUTO) 10.4 % (2-12); NEUTROPHILS # (AUTO) 5.6 X10'3 (1.8-7.7); NEUTROPHILS % (AUTO) 65.7 % (42-75); PLATELET COUNT 292 X10'3 (140-440); RED BLOOD COUNT 3.91 X10'6 (4.20-5.60); RED CELL DISTRIBUTION WIDTH 13.3 % (11.5-14.5); WHITE BLOOD COUNT 8.6 X10'3 (4.5-11.0)
[2019-10-24 07:28] LABS: ALBUMIN 3.4 G/DL (3.4-5.0); BLOOD UREA NITROGEN 3 MG/DL (7-18); CALCIUM 8.8 MG/DL (8.5-10.1); CHLORIDE 102 MMOL/L (99-107); GLUCOSE 132 MG/DL (70-104); MAGNESIUM 1.7 MG/DL (1.5-2.4); PHOSPHORUS 1.9 MG/DL (2.3-4.5); TOTAL CARBON DIOXIDE 28.8 MMOL/L (24-32)
[2019-10-24] MEDS: ondansetron/PF 4mg/2ml inj IV PRN (07:37)
[2019-10-24] MEDS: diphenhydrAMINE 50 mg/ml inj IV PRN ×2 (07:37→23:22)
[2019-10-24] MEDS: sodium bicarbonate (8.4%) inj. 100 MEQ in dextrose 5%-water 1,000 ML IV SCH (07:37)
[2019-10-24] MEDS: pantoprazole 40 MG vial IV SCH ×2 (07:37→20:23)
[2019-10-24] MEDS: enoxaparin 40mg/0.4ml syringe SQ SCH (07:37)
[2019-10-24 07:38] LABS: ANION GAP 11 (8-16); BUN/CREATININE RATIO 3.7 (6.6-38.0); CREATININE 0.81 MG/DL (0.40-0.90); SODIUM 142 MMOL/L (135-145); eGFR 76 ML/MIN
[2019-10-24] MEDS: K and/or MAG REPLACEMENT MC SCH (07:38)
[2019-10-24 07:46] LABS: POTASSIUM 2.5 MMOL/L (3.5-5.1)
[2019-10-24] MEDS: duloxetine 30mg CAPSULE.DR PO SCH (08:00)
[2019-10-24] MEDS: lactobacillus rhamnosus 10,000 MMU CELLS/CAPSULE PO SCH ×2 (08:00→20:21)
[2019-10-24] MEDS ORDERED: ondansetron inj. 24 MG in normal saline 250ml IV soln 228 ML IV SCH (08:30)
[2019-10-24] MEDS: normal saline 1000ml 1,000 ML IV SCH ×2 (09:29→20:21)
[2019-10-24] MEDS: gabapentin 300mg capsule PO SCH ×3 (09:57→20:21)
[2019-10-24 10:09] VITALS: BP 90/49
[2019-10-24] MEDS ORDERED: iohexol 300mg/ml 100ml inj. ONE (10:28)
[2019-10-24] MEDS: topiramate 25mg tablet PO SCH ×2 (10:50→20:21)
[2019-10-24] MEDS: potassium Cl 20 mEq SR tablet PO PRN ×3 (14:00→21:10)
[2019-10-24] MEDS: HYDROcodone/acetaminophen 5mg/325mg tablet PO PRN (17:35)
[2019-10-24 18:00] VITALS: BP 101/61
--- NOTE | 2019-10-24 18:05 | NUR ---
Received report from JANNETTE Delgadillo. Assumed patient care.
--- NOTE | 2019-10-24 19:50 | NUR ---
IV zofran turned off per patients request to shower, will resume when done.
--- NOTE | 2019-10-24 20:05 | NUR ---
IV zofran resumed per MD orders.
[2019-10-24] MEDS: atorvastatin 10mg tablet PO SCH (20:21)
[2019-10-24] MEDS: CefTRIAXone 2gm/D5W 50ml 50 ML IV SCH (20:22)
--- NOTE | 2019-10-24 20:40 | NUR ---
Spoke with pharmacy regarding running IV Zofran with IV Rocephin, the pharmacy stated they need to be ran separate. Patient reports her nausea has been better and she is ok with turning the Zofran off for 30 min to run ABX. Zofran turned of, will resume in 30 minutes.
--- NOTE | 2019-10-24 21:15 | NUR ---
IV Zofran resumed per MD orders.
[2019-10-24 22:00] VITALS: BP 95/54
[2019-10-25 05:56] LABS: BASOPHILS # (AUTO) 0.1 X10'3 (0-0.2); BASOPHILS % (AUTO) 1.2 % (0-1); EOSINOPHILS # (AUTO) 0.1 X10'3 (0-0.9); HEMATOCRIT 31.9 % (35.0-45.0); HEMOGLOBIN 10.9 g/dl (12.0-16.0); LYMPHOCYTES # (AUTO) 3.7 X10'3 (1.1-4.8); LYMPHOCYTES % (AUTO) 53.2 % (21-51); MEAN CORPUSCULAR HEMOGLOBIN 31.9 PG (27.0-31.0); MEAN CORPUSCULAR HGB CONC 34.3 g/dL (33.0-36.5); MEAN PLATELET VOLUME 7.4 FL (7.4-10.4); MONOCYTES # (AUTO) 0.7 X10'3 (0-0.9); MONOCYTES % (AUTO) 9.6 % (2-12); NEUTROPHILS # (AUTO) 2.4 X10'3 (1.8-7.7); PLATELET COUNT 250 X10'3 (140-440); RED BLOOD COUNT 3.43 X10'6 (4.20-5.60); RED CELL DISTRIBUTION WIDTH 13.4 % (11.5-14.5)
[2019-10-25 06:13] LABS: ALBUMIN 2.7 G/DL (3.4-5.0); ANION GAP 9 (8-16); BLOOD UREA NITROGEN 3 MG/DL (7-18); CALCIUM 8.5 MG/DL (8.5-10.1); CHLORIDE 113 MMOL/L (99-107); CREATININE 0.99 MG/DL (0.40-0.90); GLUCOSE 84 MG/DL (70-104); MAGNESIUM 1.7 MG/DL (1.5-2.4); PHOSPHORUS 2.7 MG/DL (2.3-4.5); POTASSIUM 3.4 MMOL/L (3.5-5.1); SODIUM 145 MMOL/L (135-145); TOTAL CARBON DIOXIDE 23.3 MMOL/L (24-32); eGFR 60 ML/MIN
--- NOTE | 2019-10-25 06:19 | NUR ---
Patient report given, questions answered and plan of care reviewed with JANNETTE Sánchez.
--- NOTE | 2019-10-25 06:43 | NUR ---
Patient in room [facility]TH[facility] 4014. I have received report from DEMETRIS BHATIA and had the opportunity to ask questions and assume patient care.
[2019-10-25 06:47] VITALS: BP 96/54
[2019-10-25] MEDS: normal saline 1000ml 1,000 ML IV SCH (06:54)
[2019-10-25] MEDS: lactobacillus rhamnosus 10,000 MMU CELLS/CAPSULE PO SCH (07:24)
[2019-10-25] MEDS: duloxetine 30mg CAPSULE.DR PO SCH (07:26)
[2019-10-25] MEDS: topiramate 25mg tablet PO SCH (07:26)
[2019-10-25] MEDS: gabapentin 300mg capsule PO SCH (07:27)
[2019-10-25] MEDS: potassium Cl 20 mEq SR tablet PO PRN ×2 (07:28→11:53)
[2019-10-25] MEDS: enoxaparin 40mg/0.4ml syringe SQ SCH (07:29)
[2019-10-25] MEDS: K and/or MAG REPLACEMENT MC SCH (08:07)
[2019-10-25] MEDS: pantoprazole 40 MG vial IV SCH (08:12)
[2019-10-25 09:34] LABS: HYPERSEGMENTED NEUTROPHILS 2+; PLATELET ESTIMATE NORMAL; TOTAL CELLS COUNTED 100
[2019-10-25 10:00] VITALS: BP 98/52
[2019-10-25 10:54] VITALS: BP 98/52
--- NOTE | 2019-10-25 11:08 | NUR ---
PAGER ID: [phone] MESSAGE: AGNIESZKA [phone]-RE: ALBERTO ALEXANDRA [id number]- PT TOLERATING DIET, DECREASED NAUSEA, POSS TO GET PO ZOFRAN DUE TO IV OCCLUSION, DID NOT WANT TO START A NEW IV IF PT BE DISCHARGING TODAY?
[2019-10-25] MEDS ORDERED: ondansetron 4mg rapidly disintigrating tab PO PRN (11:20)
--- NOTE | 2019-10-25 11:26 | NUR ---
Student Medication Administration:For this medication-pass time frame 3404-1038, all medications were reviewed, administered and documented per hospital policy by Geno Infante. Student documentation:I have reviewed and agree with all interventions, assessments performed and documented by Geno Infante.
--- NOTE | 2019-10-25 11:47 | NUR ---
Patient report given, questions answered & plan of care reviewed with JANNETTE Sánchez.
--- NOTE | 2019-10-25 12:43 | NUR ---
PT DC TO HOME, WITH ALL BELONGINGS, ACCOMPANIED BY FAMILY MEMBER, PT EDUCATED ON DC INSTRUCTIONS WITH UNDERSTANDING. PT STABLE UPON DC.
== END 2019-10-25 12:30 | disposition home or self-care (01) | DRG 392 ==
LOC: ER 19:44 → ED HOLD 23:00 → ORTHO 4S 10-23 02:36
PROVIDERS: ADMIT Hospitalist; ATTEND Family Medicine
PROC: BW211ZZ Computerized Tomography (CT Scan) of Abdomen and Pelvis using Low Osmolar Contrast (ICD-10-PCS; principal; 2019-10-24)
DX: A08.4 Viral intestinal infection, unspecified (principal); E87.4 Mixed disorder of acid-base balance; N17.9 Acute kidney failure, unspecified; E86.0 Dehydration; E11.65 Type 2 diabetes mellitus with hyperglycemia; F32.9 Major depressive disorder, single episode, unspecified; E78.5 Hyperlipidemia, unspecified; F41.9 Anxiety disorder, unspecified; E87.6 Hypokalemia; M54.9 Dorsalgia, unspecified; G43.909 Migraine, unspecified, not intractable, without status migrainosus; G89.29 Other chronic pain; E78.00 Pure hypercholesterolemia, unspecified; F12.188 Cannabis abuse with other cannabis-induced disorder; J45.909 Unspecified asthma, uncomplicated; Z82.49 Family history of ischemic heart disease and other diseases of the circulatory system; Z88.6 Allergy status to analgesic agent; Z88.8 Allergy status to other drugs, medicaments and biological substances; Z90.49 Acquired absence of other specified parts of digestive tract; Z98.51 Tubal ligation status; Z82.3 Family history of stroke; Z79.899 Other long term (current) drug therapy
CPT/HCPCS: 36415; 36600; 74177; 80048; 80053; 80305; 81001; 82803; 83036; 83605; 83690; 83735; 84100; 84145; 85018; 85025; 87040; 87081; 96365; 96372; 96375; 99285; C9113; G0378; J0696; J0780; J1200; J1630; J1650; J2270; J2405; J2765; J3480; J3490; J7030; J8597; Q9963; Q9967

== ENCOUNTER 2019-11-12 07:16 | Inpatient (IN) | payer MEDICARE, MEDICAID ==
[~2019-11-12] VITALS: Ht 154.9 cm; Wt 60.0 kg
[~2019-11-12 07:16] MED LIST changes: -PANT40TA4 PO
[2019-11-12] MEDS ORDERED: metoclopramide 5 mg/ml inj IV ONE (07:40)
[2019-11-12] MEDS ORDERED: chlorproMAZINE 25mg/ml inj. IV ONE ×2 (07:40→12:05)
[2019-11-12] MEDS ORDERED: diphenhydrAMINE 50 mg/ml inj IV ONE (07:40)
[2019-11-12] MEDS: normal saline 1000ml 1,000 ML IV ONE ×2 (07:42→12:29)
[2019-11-12] MEDS ORDERED: normal saline 1000ML IV soln IVB ONE ×2 (07:45→09:05)
[2019-11-12 08:45] LABS: CLARITY,URINE CLEAR (Clear); COLOR,URINE YELLOW (Yellow); GLUCOSE, URINE NEGATIVE (Neg); KETONES,URINE >=80 mg/dl (Neg); LEUKOCYTE ESTERASE ,URINE NEGATIVE (Neg); NITRITES, URINE NEGATIVE (Neg); OCCULT BLOOD,URINE MODERATE (Neg); PH,URINE 5.5 (4.8-8.0); PROTEIN,URINE 100 mg/dl (Neg); UROBILINOGEN,URINE 0.2 E.U/dL (0.2-1.0)
[2019-11-12 08:46] LABS: BASOPHILS % (AUTO) 0.1 % (0-1); EOSINOPHILS % (AUTO) 0 % (0-6); HEMATOCRIT 45.1 % (35.0-45.0); HEMOGLOBIN 15.1 g/dl (12.0-16.0); LYMPHOCYTES # (AUTO) 1.7 X10'3 (1.1-4.8); LYMPHOCYTES % (AUTO) 7.8 % (21-51); MEAN CORPUSCULAR HEMOGLOBIN 30.6 PG (27.0-31.0); MEAN CORPUSCULAR HGB CONC 33.5 g/dL (33.0-36.5); MEAN CORPUSCULAR VOLUME 91.4 FL (78-98); MEAN PLATELET VOLUME 7.5 FL (7.4-10.4); MONOCYTES # (AUTO) 0.7 X10'3 (0-0.9); MONOCYTES % (AUTO) 3.3 % (2-12); NEUTROPHILS # (AUTO) 19.7 X10'3 (1.8-7.7); NEUTROPHILS % (AUTO) 88.8 % (42-75); PLATELET COUNT 413 X10'3 (140-440); RED BLOOD COUNT 4.93 X10'6 (4.20-5.60); RED CELL DISTRIBUTION WIDTH 13.2 % (11.5-14.5); URINE HCG NEGATIVE (NEG); WHITE BLOOD COUNT 22.2 X10'3 (4.5-11.0)
[2019-11-12 08:48] LABS: UA COLLECTION TYPE CLN CATCH MIDSTREAM
[2019-11-12 08:54] LABS: BACTERIA,URINE 1+ /HPF (Neg); MUCUS STRANDS FEW /LPF (Neg); SQUAMOUS EPITHELIAL CELL,UR FEW /LPF (FEW); WBC,URINE 0-4 /HPF (0-4)
[2019-11-12 08:55] LABS: ALANINE AMINOTRANSFERASE 24 U/L (12-78); ALBUMIN 4.5 G/DL (3.4-5.0); ALKALINE PHOSPHATASE 85 IU/L (46-116); ANION GAP 19 (8-16); ASPARTATE AMINO TRANSFERASE 19 U/L (10-37); BILIRUBIN,TOTAL 0.5 MG/DL (0.1-1.0); BLOOD UREA NITROGEN 19 MG/DL (7-18); BUN/CREATININE RATIO 17.4 (6.6-38.0); CALCIUM 9.5 MG/DL (8.5-10.1); CHLORIDE 94 MMOL/L (99-107); CREATININE 1.09 MG/DL (0.40-0.90); GLUCOSE 177 MG/DL (70-104); LIPASE 64 U/L (73-393); POTASSIUM 3.2 MMOL/L (3.5-5.1); SODIUM 132 MMOL/L (135-145); TOTAL CARBON DIOXIDE 19.5 MMOL/L (24-32); TOTAL PROTEIN 9.1 G/DL (6.4-8.2); eGFR 54 ML/MIN
--- NOTE | 2019-11-12 09:14 | NUR ---
molly bragg at bedside.
[2019-11-12 09:16] LABS: URINE AMPHETAMINE SCREEN NEGATIVE (Neg); URINE BARBITUATE SCREEN NEGATIVE (Neg); URINE BENZODIAZEPINES SCREEN NEGATIVE (Neg); URINE CANNABINOID SCREEN POSITIVE (Neg); URINE COCAINE SCREEN NEGATIVE (Neg); URINE METHADONE SCREEN NEGATIVE (Neg); URINE OPIATE SCREEN NEGATIVE (Neg); URINE PHENCYCLIDINE SCREEN NEGATIVE (Neg)
--- NOTE | 2019-11-12 10:15 | NUR ---
flu swab negative removed flu precautions
[2019-11-12 11:24] LABS: BASOPHILS # (AUTO) 0.1 X10'3 (0-0.2); BASOPHILS % (AUTO) 0.3 % (0-1); EOSINOPHILS % (AUTO) 0 % (0-6); HEMATOCRIT 37.8 % (35.0-45.0); HEMOGLOBIN 12.7 g/dl (12.0-16.0); LYMPHOCYTES # (AUTO) 1.4 X10'3 (1.1-4.8); LYMPHOCYTES % (AUTO) 7.4 % (21-51); MEAN CORPUSCULAR HEMOGLOBIN 30.9 PG (27.0-31.0); MEAN CORPUSCULAR HGB CONC 33.6 g/dL (33.0-36.5); MEAN PLATELET VOLUME 6.9 FL (7.4-10.4); MONOCYTES # (AUTO) 0.5 X10'3 (0-0.9); MONOCYTES % (AUTO) 2.8 % (2-12); NEUTROPHILS # (AUTO) 16.4 X10'3 (1.8-7.7); NEUTROPHILS % (AUTO) 89.5 % (42-75); PLATELET COUNT 290 X10'3 (140-440); RED BLOOD COUNT 4.11 X10'6 (4.20-5.60); RED CELL DISTRIBUTION WIDTH 13.2 % (11.5-14.5); WHITE BLOOD COUNT 18.3 X10'3 (4.5-11.0)
[2019-11-12] MEDS ORDERED: ipratropium/albuterol 3ml nebule NEB PRN (15:20)
[2019-11-12] MEDS ORDERED: potassium CL 10mEq/100ml bag 100 ML IV PRN (15:20)
[2019-11-12] MEDS ORDERED: mag hydrox/Alum hydrox/simeth 30ml oral suspension PO PRN (15:20)
[2019-11-12] MEDS ORDERED: magnesium Cl slow-release 64mg tablet PO PRN (15:20)
[2019-11-12] MEDS ORDERED: docusate sod 100mg capsule PO PRN (15:20)
[2019-11-12] MEDS ORDERED: magnesium 2GM in 50ml NS 50 ML IV PRN (15:20)
[2019-11-12] MEDS ORDERED: magnesium 4gm in 100ml NS 100 ML IV PRN (15:20)
[2019-11-12] MEDS: nicotine 21mg patch - 24 hr TD SCH (15:20)
[2019-11-12] MEDS ORDERED: acetaminophen 650mg rectal suppository RC PRN (15:20)
[2019-11-12] MEDS ORDERED: potassium Cl 20 mEq SR tablet PO PRN (15:20)
[2019-11-12] MEDS ORDERED: HYDR-3686 PO (15:22)
[2019-11-12] MEDS ORDERED: PANT40TA4 PO (15:22)
[2019-11-12] MEDS ORDERED: hydrOXYzine 25 MG tablet PO PRN (15:30)
[2019-11-12] MEDS ORDERED: famotidine 10mg tablet PO STA (15:47)
[2019-11-12] MEDS: normal saline 1000ml 1,000 ML IV SCH ×2 (16:43→19:19)
--- NOTE | 2019-11-12 17:34 | NUR ---
ambulated to bathroom to void, vomited 200 ml of maroon vomit
[2019-11-12 18:00] VITALS: BP 115/62
[2019-11-12] MEDS: pantoprazole 40 MG vial IV SCH (19:17)
[2019-11-12] MEDS: topiramate 25mg tablet PO SCH (19:17)
[2019-11-12] MEDS: K and/or MAG REPLACEMENT MC SCH (19:31)
[2019-11-12] MEDS: gabapentin 300mg capsule PO SCH (21:00)
[2019-11-12] MEDS: atorvastatin 20mg tablet PO SCH (21:00)
[2019-11-12] MEDS: metoclopramide 5 mg/ml inj IV PRN (23:05)
[2019-11-12] MEDS: potassium CL 10mEq/100ml bag 100 ML IV PRN (23:05)
[2019-11-13] VITALS: BP 94/51
[2019-11-13] MEDS: potassium CL 10mEq/100ml bag 100 ML IV PRN ×3 (00:05→03:38)
[2019-11-13] MEDS: normal saline 1000ml 1,000 ML IV SCH ×3 (01:19→09:37)
[2019-11-13 05:37] LABS: ALANINE AMINOTRANSFERASE 21 U/L (12-78); ALBUMIN 3.4 G/DL (3.4-5.0); ALBUMIN/GLOBULIN RATIO 0.9 (1.1-1.5); ALKALINE PHOSPHATASE 59 IU/L (46-116); ANION GAP 14 (8-16); ASPARTATE AMINO TRANSFERASE 25 U/L (10-37); BILIRUBIN,TOTAL 0.6 MG/DL (0.1-1.0); BLOOD UREA NITROGEN 2 MG/DL (7-18); BUN/CREATININE RATIO 2.9 (6.6-38.0); CALCIUM 8.5 MG/DL (8.5-10.1); CHLORIDE 108 MMOL/L (99-107); GLUCOSE 77 MG/DL (70-104); MAGNESIUM 1.7 MG/DL (1.5-2.4); POTASSIUM 3.5 MMOL/L (3.5-5.1); SODIUM 141 MMOL/L (135-145); TOTAL CARBON DIOXIDE 19.5 MMOL/L (24-32); eGFR 90 ML/MIN
[2019-11-13 05:49] LABS: BASOPHILS # (AUTO) 0.1 X10'3 (0-0.2); BASOPHILS % (AUTO) 0.4 % (0-1); EOSINOPHILS # (AUTO) 0.1 X10'3 (0-0.9); EOSINOPHILS % (AUTO) 0.5 % (0-6); HEMATOCRIT 35.5 % (35.0-45.0); LYMPHOCYTES % (AUTO) 28.5 % (21-51); MEAN CORPUSCULAR HEMOGLOBIN 31.4 PG (27.0-31.0); MEAN CORPUSCULAR HGB CONC 33.9 g/dL (33.0-36.5); MEAN CORPUSCULAR VOLUME 92.6 FL (78-98); MEAN PLATELET VOLUME 7.8 FL (7.4-10.4); MONOCYTES # (AUTO) 1.1 X10'3 (0-0.9); MONOCYTES % (AUTO) 7.7 % (2-12); NEUTROPHILS # (AUTO) 8.9 X10'3 (1.8-7.7); NEUTROPHILS % (AUTO) 62.9 % (42-75); PLATELET COUNT 302 X10'3 (140-440); RED BLOOD COUNT 3.83 X10'6 (4.20-5.60); RED CELL DISTRIBUTION WIDTH 13.2 % (11.5-14.5); WHITE BLOOD COUNT 14.1 X10'3 (4.5-11.0)
--- NOTE | 2019-11-13 06:24 | NUR ---
Problems reprioritized. Patient report given, questions answered & plan of care reviewed with Kathryn BHATIA.
[2019-11-13] MEDS: K and/or MAG REPLACEMENT MC SCH ×2 (06:25→20:00)
[2019-11-13 07:00] VITALS: BP 111/64
[2019-11-13] MEDS: nicotine 21mg patch - 24 hr TD SCH (08:00)
[2019-11-13] MEDS: duloxetine 30mg CAPSULE.DR PO SCH (08:12)
[2019-11-13] MEDS: pantoprazole 40 MG vial IV SCH ×2 (08:12→20:40)
[2019-11-13] MEDS: gabapentin 300mg capsule PO SCH ×3 (08:12→20:40)
[2019-11-13] MEDS: topiramate 25mg tablet PO SCH ×2 (08:12→20:40)
[2019-11-13] MEDS: enoxaparin 40mg/0.4ml syringe SQ SCH (08:14)
[2019-11-13] MEDS: metoclopramide 5 mg/ml inj IV PRN (08:46)
--- NOTE | 2019-11-13 11:30 | NUR ---
Malnutrition consult: Pt unsure if she has had any wt loss however reports decreased appetite per malnutrition screen with RN. Pt with hx of gastroparesis and was experiencing N/V x 2 day EPIC ANALYST with c/o generalized abdominal discomfort and malaise for 4 days per H&P. Current stated wt is higher than documented wt hx resulting in appropriate BMI. Unable to assess PO intake as pt is currently NPO. Pt with no documented decrease in muscle strength or edema. Pt currently does not meet criteria for malnutrition. Will continue to follow. Addendum: 11/13/19 at [address] Amended: Links added.
[2019-11-13 18:00] VITALS: BP 110/63
--- NOTE | 2019-11-13 18:09 | NUR ---
Problems reprioritized. Patient report given, questions answered & plan of care reviewed with MAHESH BHATIA.
[2019-11-13] MEDS: atorvastatin 20mg tablet PO SCH (20:40)
[2019-11-14] VITALS: BP 125/71
[2019-11-14 05:24] LABS: ALANINE AMINOTRANSFERASE 20 U/L (12-78); ALBUMIN 3.2 G/DL (3.4-5.0); ALKALINE PHOSPHATASE 54 IU/L (46-116); ANION GAP 10 (8-16); ASPARTATE AMINO TRANSFERASE 25 U/L (10-37); BILIRUBIN,TOTAL 0.5 MG/DL (0.1-1.0); BLOOD UREA NITROGEN 5 MG/DL (7-18); BUN/CREATININE RATIO 6.9 (6.6-38.0); CALCIUM 8.7 MG/DL (8.5-10.1); CHLORIDE 105 MMOL/L (99-107); CREATININE 0.72 MG/DL (0.40-0.90); GLUCOSE 101 MG/DL (70-104); MAGNESIUM 1.7 MG/DL (1.5-2.4); SODIUM 140 MMOL/L (135-145); TOTAL CARBON DIOXIDE 24.6 MMOL/L (24-32); TOTAL PROTEIN 6.5 G/DL (6.4-8.2); eGFR 87 ML/MIN
[2019-11-14 05:30] LABS: POTASSIUM 2.6 MMOL/L (3.5-5.1)
[2019-11-14 06:16] LABS: BASOPHILS # (AUTO) 0.1 X10'3 (0-0.2); BASOPHILS % (AUTO) 0.8 % (0-1); EOSINOPHILS # (AUTO) 0.2 X10'3 (0-0.9); HEMATOCRIT 34.1 % (35.0-45.0); HEMOGLOBIN 11.9 g/dl (12.0-16.0); LYMPHOCYTES % (AUTO) 39.4 % (21-51); MEAN CORPUSCULAR HEMOGLOBIN 31.5 PG (27.0-31.0); MEAN CORPUSCULAR VOLUME 90.2 FL (78-98); MEAN PLATELET VOLUME 7.4 FL (7.4-10.4); MONOCYTES # (AUTO) 0.7 X10'3 (0-0.9); MONOCYTES % (AUTO) 9.7 % (2-12); NEUTROPHILS # (AUTO) 3.7 X10'3 (1.8-7.7); NEUTROPHILS % (AUTO) 48.1 % (42-75); PLATELET COUNT 288 X10'3 (140-440); RED BLOOD COUNT 3.78 X10'6 (4.20-5.60); RED CELL DISTRIBUTION WIDTH 13.1 % (11.5-14.5); WHITE BLOOD COUNT 7.7 X10'3 (4.5-11.0)
--- NOTE | 2019-11-14 06:24 | NUR ---
Problems reprioritized. Patient report given, questions answered & plan of care reviewed with Kathryn BHATIA.
[2019-11-14 07:00] VITALS: BP 132/91
[2019-11-14] MEDS: gabapentin 300mg capsule PO SCH ×2 (07:25→12:45)
[2019-11-14] MEDS: duloxetine 30mg CAPSULE.DR PO SCH (07:25)
[2019-11-14] MEDS: potassium Cl 20 mEq SR tablet PO PRN ×2 (07:25→12:45)
[2019-11-14] MEDS: topiramate 25mg tablet PO SCH (07:25)
[2019-11-14] MEDS: enoxaparin 40mg/0.4ml syringe SQ SCH (07:27)
[2019-11-14] MEDS: nicotine 21mg patch - 24 hr TD SCH (07:28)
[2019-11-14] MEDS: K and/or MAG REPLACEMENT MC SCH (07:28)
[2019-11-14] MEDS ORDERED: pantoprazole 40mg Tablet.DR PO SCH (07:30)
[2019-11-14 07:38] VITALS: BP 116/45
[2019-11-14 11:37] VITALS: BP 91/55
--- NOTE | 2019-11-14 12:52 | NUR ---
DR BROCK AWARE THAT PTS K WAS 2.6 AM DRAW. PT WAS GIVEN 2 DOSES OF 40MEQ. OK TO DISCHARGE HOME PER MD.
--- NOTE | 2019-11-14 14:08 | NUR ---
PT DISCHARGED IN STABLE CONDITION. LEFT FACILITY IN PRIVATE VEHICLE WITH FRIEND. IV DC CANULA INTACT. ALL BELONGINGS IN HAND INCLUDING MEDS THAT WERE STORED IN PHARMACY. FOLLOW UP INSTRUCTIONS GIVEN, ALL QUESTIONS ANSWERED. Addendum: 11/14/19 at 1409 by Denise Morfin RN Amended: Links added.
== END 2019-11-14 13:55 | disposition home or self-care (01) | DRG 918 ==
LOC: ER 07:17 → ED HOLD 15:19 → SUR 3N 18:55
PROVIDERS: ADMIT Family Medicine; ATTEND Hospitalist
DX: T40.7X1A Poisoning by cannabis (derivatives), accidental (unintentional), initial encounter (principal); E87.4 Mixed disorder of acid-base balance; N17.9 Acute kidney failure, unspecified; E11.43 Type 2 diabetes mellitus with diabetic autonomic (poly)neuropathy; E11.65 Type 2 diabetes mellitus with hyperglycemia; E78.00 Pure hypercholesterolemia, unspecified; E78.5 Hyperlipidemia, unspecified; E86.0 Dehydration; F17.210 Nicotine dependence, cigarettes, uncomplicated; R11.2 Nausea with vomiting, unspecified; K20.9 Esophagitis, unspecified; G43.909 Migraine, unspecified, not intractable, without status migrainosus; G89.29 Other chronic pain; M54.9 Dorsalgia, unspecified; F41.8 Other specified anxiety disorders; J45.909 Unspecified asthma, uncomplicated; K31.84 Gastroparesis; K52.9 Noninfective gastroenteritis and colitis, unspecified; Z82.49 Family history of ischemic heart disease and other diseases of the circulatory system; Z87.19 Personal history of other diseases of the digestive system; Z90.49 Acquired absence of other specified parts of digestive tract; Y92.89 Other specified places as the place of occurrence of the external cause; Z88.5 Allergy status to narcotic agent; Z79.899 Other long term (current) drug therapy; Z98.51 Tubal ligation status; Z82.3 Family history of stroke; Z71.6 Tobacco abuse counseling
CPT/HCPCS: 36415; 80053; 80305; 81001; 81025; 83690; 83735; 85025; 87081; 87502; 87503; 94760; 96361; 96374; 96375; 96376; 97116; 97161; 99285; C9113; G0378; J1200; J1650; J2765; J3230; J3480; J7030

== ENCOUNTER 2020-04-16 16:46 | Emergency (ER) | payer MEDICARE, MEDICAID ==
[~2020-04-16] VITALS: Ht 154.9 cm; Wt 61.4 kg
[~2020-04-16 16:46] MED LIST changes: +HYDR-3686 PO; -ONDA4TAB11 PO; +PANT40TA4 PO
[2020-04-16] MEDS ORDERED: acetaminophen 325mg tablet PO ONE (17:10)
[2020-04-16] MEDS ORDERED: TETanus/Pertussis (Acell)/Diphther VAC/PF (Tdap-Adult) 0.5ml syringe IMVAC ONE (17:10)
[2020-04-16] MEDS ORDERED: LIDOcaine 1% W/epiNEPHrine 1:200,000 10ml vial IJ ONE (17:10)
[2020-04-16] MEDS ORDERED: AMOX-422 PO (17:38)
[2020-04-16 18:21] VITALS: BP 120/67
[2020-04-24] MEDS ORDERED: AMOX-580 PO (11:31)
[2020-04-24] MEDS ORDERED: TRAZ-251 PO (13:34)
[2020-04-26] MEDS ORDERED: ONDA4TAB6 PO (09:53)
== END 2020-04-16 18:23 | disposition home or self-care (01) ==
LOC: ER 16:47
DX: S81.851A Open bite, right lower leg, initial encounter (principal); M79.661 Pain in right lower leg; G43.909 Migraine, unspecified, not intractable, without status migrainosus; E78.00 Pure hypercholesterolemia, unspecified; J45.909 Unspecified asthma, uncomplicated; E11.9 Type 2 diabetes mellitus without complications; G89.29 Other chronic pain; F41.9 Anxiety disorder, unspecified; F32.9 Major depressive disorder, single episode, unspecified; F12.90 Cannabis use, unspecified, uncomplicated; F19.90 Other psychoactive substance use, unspecified, uncomplicated; Z87.01 Personal history of pneumonia (recurrent); Z87.440 Personal history of urinary (tract) infections; Z90.49 Acquired absence of other specified parts of digestive tract; Z90.89 Acquired absence of other organs; Z98.51 Tubal ligation status; Z98.890 Other specified postprocedural states; Z72.89 Other problems related to lifestyle; Z88.6 Allergy status to analgesic agent; Z88.8 Allergy status to other drugs, medicaments and biological substances; Z79.2 Long term (current) use of antibiotics; Z79.899 Other long term (current) drug therapy; W54.0XXA Bitten by dog, initial encounter; Y93.89 Activity, other specified; Y92.89 Other specified places as the place of occurrence of the external cause; Y99.8 Other external cause status
CPT/HCPCS: 12002; 73590; 90471; 90715; 99283

== ENCOUNTER 2020-04-22 15:55 | Emergency (ER) | payer MEDICARE, MEDICAID ==
[~2020-04-22] VITALS: Ht 156.2 cm; Wt 61.4 kg
[~2020-04-22 15:55] MED LIST changes: +AMOX-422 PO
[2020-04-22 16:36] LABS: BASOPHILS # (AUTO) 0.1 X10'3 (0-0.2); BASOPHILS % (AUTO) 0.5 % (0-1); EOSINOPHILS # (AUTO) 0.1 X10'3 (0-0.9); EOSINOPHILS % (AUTO) 0.9 % (0-6); HEMATOCRIT 41.1 % (35.0-45.0); HEMOGLOBIN 13.7 g/dl (12.0-16.0); LYMPHOCYTES # (AUTO) 1.8 X10'3 (1.1-4.8); LYMPHOCYTES % (AUTO) 11.2 % (21-51); MEAN CORPUSCULAR HEMOGLOBIN 30.8 PG (27.0-31.0); MEAN CORPUSCULAR HGB CONC 33.5 g/dL (33.0-36.5); MEAN CORPUSCULAR VOLUME 92.1 FL (78-98); MEAN PLATELET VOLUME 7.3 FL (7.4-10.4); MONOCYTES # (AUTO) 0.9 X10'3 (0-0.9); MONOCYTES % (AUTO) 5.6 % (2-12); NEUTROPHILS # (AUTO) 12.9 X10'3 (1.8-7.7); NEUTROPHILS % (AUTO) 81.8 % (42-75); PLATELET COUNT 381 X10'3 (140-440); RED BLOOD COUNT 4.46 X10'6 (4.20-5.60); RED CELL DISTRIBUTION WIDTH 13.3 % (11.5-14.5); WHITE BLOOD COUNT 15.8 X10'3 (4.5-11.0)
[2020-04-22 16:54] LABS: ALANINE AMINOTRANSFERASE 14 U/L (12-78); ALBUMIN 3.7 G/DL (3.4-5.0); ALBUMIN/GLOBULIN RATIO 0.8 (1.1-1.5); ALKALINE PHOSPHATASE 80 IU/L (46-116); ANION GAP 13 (8-16); ASPARTATE AMINO TRANSFERASE 21 U/L (10-37); BILIRUBIN,TOTAL 0.4 MG/DL (0.1-1.0); BLOOD UREA NITROGEN 10 MG/DL (7-18); BUN/CREATININE RATIO 8.9 (6.6-38.0); CALCIUM 9.4 MG/DL (8.5-10.1); CHLORIDE 105 MMOL/L (99-107); CREATININE 1.12 MG/DL (0.40-0.90); GLUCOSE 144 MG/DL (70-104); LIPASE 80 U/L (73-393); SODIUM 142 MMOL/L (135-145); TOTAL CARBON DIOXIDE 24.5 MMOL/L (24-32); TOTAL PROTEIN 8.2 G/DL (6.4-8.2); eGFR 52 ML/MIN
[2020-04-22 16:58] LABS: POTASSIUM 2.9 MMOL/L (3.5-5.1)
[2020-04-22] MEDS ORDERED: haloperidol lactate 5mg/ml inj IM ONE (18:15)
[2020-04-22] MEDS ORDERED: diphenhydrAMINE 50 mg/ml inj IV ONE (18:15)
[2020-04-22 19:04] LABS: CLARITY,URINE CLOUDY (Clear); COLOR,URINE YELLOW (Yellow); GLUCOSE, URINE 100 mg/dl (Neg); KETONES,URINE 40 mg/dl (Neg); LEUKOCYTE ESTERASE ,URINE TRACE (Neg); NITRITES, URINE NEGATIVE (Neg); OCCULT BLOOD,URINE LARGE (Neg); PH,URINE 8.5 (4.8-8.0); PROTEIN,URINE TRACE mg/dl (Neg); UROBILINOGEN,URINE 0.2 E.U/dL (0.2-1.0)
[2020-04-22 19:07] LABS: URINE HCG NEGATIVE (NEG)
[2020-04-22 19:12] LABS: UA COLLECTION TYPE CLN CATCH MIDSTREAM
[2020-04-22 19:13] LABS: BACTERIA,URINE FEW /HPF (Neg); RBC,URINE 50-100 /HPF (0-2); SQUAMOUS EPITHELIAL CELL,UR FEW /LPF (FEW); WBC,URINE 0-4 /HPF (0-4)
[2020-04-22] MEDS ORDERED: LORazepam 2 mg/ml vial IV ONE (19:20)
[2020-04-22] MEDS ORDERED: metoclopramide 5 mg/ml inj IV ONE (19:20)
[2020-04-22] MEDS ORDERED: normal saline 1000ML IV soln IVB ONE (20:20)
[2020-04-22] MEDS ORDERED: potassium Cl 20 mEq SR tablet PO STA (20:22)
[2020-04-22 21:03] VITALS: BP 139/60
[2020-04-24] MEDS ORDERED: AMOX-580 PO (11:31)
[2020-04-24] MEDS ORDERED: TRAZ-251 PO (13:34)
[2020-04-26] MEDS ORDERED: ONDA4TAB6 PO (09:53)
== END 2020-04-22 21:04 | disposition home or self-care (01) ==
LOC: ER 15:55
DX: K31.84 Gastroparesis (principal); G43.909 Migraine, unspecified, not intractable, without status migrainosus; E78.00 Pure hypercholesterolemia, unspecified; J45.909 Unspecified asthma, uncomplicated; E11.9 Type 2 diabetes mellitus without complications; R19.7 Diarrhea, unspecified; G89.29 Other chronic pain; F41.9 Anxiety disorder, unspecified; F12.90 Cannabis use, unspecified, uncomplicated; F32.9 Major depressive disorder, single episode, unspecified; Z90.49 Acquired absence of other specified parts of digestive tract; Z90.89 Acquired absence of other organs; Z98.51 Tubal ligation status; Z98.890 Other specified postprocedural states; Z72.89 Other problems related to lifestyle; Z88.6 Allergy status to analgesic agent; Z88.8 Allergy status to other drugs, medicaments and biological substances; Z79.899 Other long term (current) drug therapy
CPT/HCPCS: 36415; 80053; 81001; 81025; 82948; 83690; 85025; 87088; 93005; 96361; 96372; 96374; 96375; 99285; J1200; J1630; J2060; J2765; J7030

== ENCOUNTER 2020-07-18 16:14 | Emergency (ER) | payer MEDICARE, MEDICAID ==
[~2020-07-18] VITALS: Ht 157.5 cm; Wt 59.1 kg
[~2020-07-18 16:14] MED LIST changes: -AMOX-422 PO; +AMOX-580 PO; +ONDA4TAB6 PO; +TRAZ-251 PO
[2020-07-18] MEDS ORDERED: normal saline 1000ML IV soln IVB ONE (16:55)
[2020-07-18] MEDS ORDERED: ondansetron/PF 4mg/2ml inj IV ONE (16:55)
[2020-07-18] MEDS ORDERED: famotidine/PF 10 mg/ml inj IV ONE (16:55)
[2020-07-18 17:42] LABS: URINE AMPHETAMINE SCREEN NEGATIVE (Neg); URINE BARBITUATE SCREEN NEGATIVE (Neg); URINE BENZODIAZEPINES SCREEN NEGATIVE (Neg); URINE CANNABINOID SCREEN POSITIVE (Neg); URINE COCAINE SCREEN NEGATIVE (Neg); URINE METHADONE SCREEN NEGATIVE (Neg); URINE OPIATE SCREEN NEGATIVE (Neg); URINE PHENCYCLIDINE SCREEN NEGATIVE (Neg)
[2020-07-18 17:42] LABS: BASOPHILS # (AUTO) 0.1 X10'3 (0-0.2); BASOPHILS % (AUTO) 0.4 % (0-1); EOSINOPHILS % (AUTO) 0.3 % (0-6); HEMATOCRIT 39.7 % (35.0-45.0); HEMOGLOBIN 13.3 g/dl (12.0-16.0); LYMPHOCYTES # (AUTO) 1.4 X10'3 (1.1-4.8); LYMPHOCYTES % (AUTO) 7.6 % (21-51); MEAN CORPUSCULAR HEMOGLOBIN 30.4 PG (27.0-31.0); MEAN CORPUSCULAR HGB CONC 33.6 g/dL (33.0-36.5); MEAN CORPUSCULAR VOLUME 90.5 FL (78-98); MEAN PLATELET VOLUME 7.6 FL (7.4-10.4); MONOCYTES # (AUTO) 2.1 X10'3 (0-0.9); MONOCYTES % (AUTO) 11.2 % (2-12); NEUTROPHILS # (AUTO) 14.9 X10'3 (1.8-7.7); NEUTROPHILS % (AUTO) 80.5 % (42-75); PLATELET COUNT 314 X10'3 (140-440); RED BLOOD COUNT 4.38 X10'6 (4.20-5.60); RED CELL DISTRIBUTION WIDTH 14.1 % (11.5-14.5); WHITE BLOOD COUNT 18.5 X10'3 (4.5-11.0)
[2020-07-18 17:44] LABS: CLARITY,URINE CLOUDY (Clear); COLOR,URINE YELLOW (Yellow); GLUCOSE, URINE NEGATIVE (Neg); KETONES,URINE 15 mg/dl (Neg); LEUKOCYTE ESTERASE ,URINE NEGATIVE (Neg); NITRITES, URINE NEGATIVE (Neg); OCCULT BLOOD,URINE LARGE (Neg); PROTEIN,URINE >=300 mg/dl (Neg)
[2020-07-18 17:52] LABS: ALANINE AMINOTRANSFERASE 9 U/L (12-78); ALBUMIN 3.6 G/DL (3.4-5.0); ALBUMIN/GLOBULIN RATIO 0.6 (1.1-1.5); ALKALINE PHOSPHATASE 74 IU/L (46-116); ANION GAP 22 (8-16); ASPARTATE AMINO TRANSFERASE 15 U/L (10-37); BILIRUBIN,TOTAL 0.6 MG/DL (0.1-1.0); BLOOD UREA NITROGEN 15 MG/DL (7-18); BUN/CREATININE RATIO 13.4 (6.6-38.0); CHLORIDE 95 MMOL/L (99-107); CREATININE 1.12 MG/DL (0.40-0.90); ETHANOL < 0.010 GM/DL (0.0-0.010); GLUCOSE 120 MG/DL (70-104); LIPASE 51 U/L (73-393); POTASSIUM 3.1 MMOL/L (3.5-5.1); SODIUM 134 MMOL/L (135-145); TOTAL CARBON DIOXIDE 17.3 MMOL/L (24-32); TOTAL PROTEIN 9.3 G/DL (6.4-8.2); eGFR 52 ML/MIN
[2020-07-18 17:57] LABS: UA COLLECTION TYPE CLN CATCH MIDSTREAM
[2020-07-18 17:59] LABS: SQUAMOUS EPITHELIAL CELL,UR MANY /LPF (FEW)
[2020-07-18 18:04] LABS: MUCUS STRANDS MODERATE /LPF (Neg)
[2020-07-18 18:05] LABS: BACTERIA,URINE 1+ /HPF (Neg)
[2020-07-18] MEDS ORDERED: haloperidol lactate 5mg/ml inj IM ONE (18:05)
[2020-07-18 18:07] LABS: CALCIUM 10.1 MG/DL (8.5-10.1)
[2020-07-18] MEDS ORDERED: ONDA4TAB6 PO (18:40)
[2020-07-18 19:13] VITALS: BP 99/50
== END 2020-07-18 19:15 | disposition home or self-care (01) ==
LOC: ER 16:15
DX: R11.15 Cyclical vomiting syndrome unrelated to migraine (principal); E86.0 Dehydration; R19.7 Diarrhea, unspecified; R11.2 Nausea with vomiting, unspecified; R10.84 Generalized abdominal pain; G43.909 Migraine, unspecified, not intractable, without status migrainosus; E78.00 Pure hypercholesterolemia, unspecified; J45.909 Unspecified asthma, uncomplicated; E11.9 Type 2 diabetes mellitus without complications; G89.29 Other chronic pain; F41.9 Anxiety disorder, unspecified; F32.9 Major depressive disorder, single episode, unspecified; F12.90 Cannabis use, unspecified, uncomplicated; F19.90 Other psychoactive substance use, unspecified, uncomplicated; Z87.01 Personal history of pneumonia (recurrent); Z87.440 Personal history of urinary (tract) infections; Z90.49 Acquired absence of other specified parts of digestive tract; Z90.89 Acquired absence of other organs; Z98.51 Tubal ligation status; Z98.890 Other specified postprocedural states; Z72.89 Other problems related to lifestyle; Z79.82 Long term (current) use of aspirin; Z88.8 Allergy status to other drugs, medicaments and biological substances; Z88.6 Allergy status to analgesic agent; Z79.2 Long term (current) use of antibiotics; Z79.899 Other long term (current) drug therapy
CPT/HCPCS: 36415; 74176; 80053; 80305; 80320; 81001; 83690; 85025; 96361; 96374; 96375; 99284; J2405; J3490; J7030

== ENCOUNTER 2020-07-20 17:14 | Emergency (ER) | payer MEDICARE, MEDICAID ==
[~2020-07-20] VITALS: Ht 154.9 cm; Wt 59.1 kg
[2020-07-20 17:57] LABS: BASOPHILS % (AUTO) 0.2 % (0-1); EOSINOPHILS % (AUTO) 0.2 % (0-6); HEMATOCRIT 36.3 % (35.0-45.0); HEMOGLOBIN 12.2 g/dl (12.0-16.0); LYMPHOCYTES # (AUTO) 0.9 X10'3 (1.1-4.8); LYMPHOCYTES % (AUTO) 5.1 % (21-51); MEAN CORPUSCULAR HEMOGLOBIN 30.2 PG (27.0-31.0); MEAN CORPUSCULAR HGB CONC 33.6 g/dL (33.0-36.5); MEAN CORPUSCULAR VOLUME 89.9 FL (78-98); MEAN PLATELET VOLUME 7.8 FL (7.4-10.4); MONOCYTES # (AUTO) 1.1 X10'3 (0-0.9); MONOCYTES % (AUTO) 6.1 % (2-12); NEUTROPHILS % (AUTO) 88.4 % (42-75); PLATELET COUNT 359 X10'3 (140-440); RED BLOOD COUNT 4.04 X10'6 (4.20-5.60); RED CELL DISTRIBUTION WIDTH 14.9 % (11.5-14.5); WHITE BLOOD COUNT 18.1 X10'3 (4.5-11.0)
[2020-07-20 18:15] LABS: ALANINE AMINOTRANSFERASE 18 U/L (12-78); ALKALINE PHOSPHATASE 72 IU/L (46-116); ANION GAP 20 (8-16); ASPARTATE AMINO TRANSFERASE 30 U/L (10-37); BILIRUBIN,TOTAL 0.6 MG/DL (0.1-1.0); BLOOD UREA NITROGEN 10 MG/DL (7-18); BUN/CREATININE RATIO 9.2 (6.6-38.0); CALCIUM 9.3 MG/DL (8.5-10.1); CHLORIDE 94 MMOL/L (99-107); CREATININE 1.09 MG/DL (0.40-0.90); GLUCOSE 177 MG/DL (70-104); LIPASE < 50 U/L (73-393); SODIUM 129 MMOL/L (135-145); TOTAL CARBON DIOXIDE 15.4 MMOL/L (24-32); TOTAL PROTEIN 8.2 G/DL (6.4-8.2); eGFR 54 ML/MIN
[2020-07-20 18:26] LABS: ALBUMIN 2.8 G/DL (3.4-5.0)
[2020-07-20 18:27] LABS: ALBUMIN/GLOBULIN RATIO 0.5 (1.1-1.5); POTASSIUM 2.6 MMOL/L (3.5-5.1)
[2020-07-20] MEDS ORDERED: normal saline 1000ml 1,000 ML IVB ONE (19:34)
[2020-07-20] MEDS ORDERED: potassium Cl 20 mEq SR tablet PO ONE (19:55)
[2020-07-20] MEDS ORDERED: magnesium oxide 400mg tablet PO ONE (19:55)
[2020-07-20] MEDS ORDERED: haloperidol lactate 5mg/ml inj IM ONE (19:55)
[2020-07-20 19:57] LABS: CLARITY,URINE SLIGHTLY CLOUDY (Clear); COLOR,URINE YELLOW (Yellow); GLUCOSE, URINE NEGATIVE (Neg); KETONES,URINE >=80 mg/dl (Neg); LEUKOCYTE ESTERASE ,URINE NEGATIVE (Neg); NITRITES, URINE NEGATIVE (Neg); OCCULT BLOOD,URINE LARGE (Neg); PROTEIN,URINE >=300 mg/dl (Neg); URINE HCG NEGATIVE (NEG); UROBILINOGEN,URINE 0.2 E.U/dL (0.2-1.0)
[2020-07-20 20:05] LABS: UA COLLECTION TYPE CLN CATCH MIDSTREAM
[2020-07-20 20:07] LABS: BACTERIA,URINE 2+ /HPF (Neg); RBC,URINE 0-2 /HPF (0-2); SQUAMOUS EPITHELIAL CELL,UR MODERATE /LPF (FEW); WBC,URINE NONE SEEN /HPF (0-4)
[2020-07-20] MEDS: potassium Cl 10 mEq/100mL bag IV SCH ×2 (20:11→21:15)
--- NOTE | 2020-07-20 20:31 | NUR ---
PT HAD ACCIDENTLY PULLED HER IV OUT, INTACT CANNULA FRESH IV STARTED.
[2020-07-20 20:34] LABS: URINE AMPHETAMINE SCREEN NEGATIVE (Neg); URINE BARBITUATE SCREEN NEGATIVE (Neg); URINE BENZODIAZEPINES SCREEN NEGATIVE (Neg); URINE CANNABINOID SCREEN POSITIVE (Neg); URINE COCAINE SCREEN NEGATIVE (Neg); URINE METHADONE SCREEN NEGATIVE (Neg); URINE OPIATE SCREEN NEGATIVE (Neg); URINE PHENCYCLIDINE SCREEN NEGATIVE (Neg)
[2020-07-20] MEDS ORDERED: POTA20TA19 PO (20:52)
[2020-07-20] MEDS ORDERED: PROC25SU31 RC (21:05)
[2020-07-20] MEDS ORDERED: ONDA4TAB6 PO (21:05)
[2020-07-20 22:36] VITALS: BP 123/65
[2020-07-21] MEDS ORDERED: iohexol 350MG/ML 100ml bottle IV ONE (09:29)
[2020-07-21] MEDS ORDERED: SIMV-42 PO (12:33)
[2020-07-21] MEDS ORDERED: PANT-47 PO (12:33)
[2020-07-21] MEDS ORDERED: METO-292 PO (12:33)
[2020-07-21] MEDS ORDERED: TOPI50TA PO (12:33)
== END 2020-07-20 22:37 | disposition home or self-care (01) ==
LOC: ER 17:16
DX: E87.6 Hypokalemia (principal); F12.10 Cannabis abuse, uncomplicated; G43.909 Migraine, unspecified, not intractable, without status migrainosus; E78.00 Pure hypercholesterolemia, unspecified; J45.909 Unspecified asthma, uncomplicated; E11.9 Type 2 diabetes mellitus without complications; G89.29 Other chronic pain; F41.9 Anxiety disorder, unspecified; F32.9 Major depressive disorder, single episode, unspecified; R11.2 Nausea with vomiting, unspecified; Z98.51 Tubal ligation status; Z90.89 Acquired absence of other organs; Z90.49 Acquired absence of other specified parts of digestive tract; Z98.890 Other specified postprocedural states; Z88.6 Allergy status to analgesic agent; Z88.8 Allergy status to other drugs, medicaments and biological substances; Z79.899 Other long term (current) drug therapy
CPT/HCPCS: 36415; 80053; 80305; 81001; 81025; 83690; 85025; 96361; 96365; 96366; 96372; 99284; J1630; J3480; J7030; 96374; 96376; Q9967

== ENCOUNTER 2021-01-07 14:57 | Emergency (ER) | payer MEDICARE, MEDICAID ==
[~2021-01-07] VITALS: Ht 157.5 cm; Wt 60.5 kg
[~2021-01-07 14:57] MED LIST changes: -AMOX-580 PO; +LEVO750T46 PO; -ONDA4TAB6 PO; +PANT-47 PO; -PANT40TA4 PO; +PRED20TA PO; +TOPI50TA PO; -TOPI50TA24 PO
[2021-01-07 15:53] LABS: BASOPHILS # (AUTO) 0.1 X10'3 (0-0.2); BASOPHILS % (AUTO) 0.9 % (0-1); EOSINOPHILS # (AUTO) 0.2 X10'3 (0-0.9); EOSINOPHILS % (AUTO) 2.3 % (0-6); HEMATOCRIT 31.9 % (35.0-45.0); HEMOGLOBIN 10.4 g/dl (12.0-16.0); LYMPHOCYTES # (AUTO) 2.6 X10'3 (1.1-4.8); LYMPHOCYTES % (AUTO) 30.4 % (21-51); MEAN CORPUSCULAR HEMOGLOBIN 28.7 PG (27.0-31.0); MEAN CORPUSCULAR HGB CONC 32.7 g/dL (33.0-36.5); MEAN CORPUSCULAR VOLUME 87.7 FL (78-98); MEAN PLATELET VOLUME 7.1 FL (7.4-10.4); MONOCYTES # (AUTO) 0.8 X10'3 (0-0.9); MONOCYTES % (AUTO) 9.5 % (2-12); NEUTROPHILS # (AUTO) 4.9 X10'3 (1.8-7.7); NEUTROPHILS % (AUTO) 56.9 % (42-75); PLATELET COUNT 396 X10'3 (140-440); RED BLOOD COUNT 3.64 X10'6 (4.20-5.60); RED CELL DISTRIBUTION WIDTH 16.8 % (11.5-14.5); WHITE BLOOD COUNT 8.6 X10'3 (4.5-11.0)
[2021-01-07 16:11] LABS: ALANINE AMINOTRANSFERASE 13 U/L (12-78); ALBUMIN 3.5 G/DL (3.4-5.0); ALBUMIN/GLOBULIN RATIO 0.8 (1.1-1.5); ALKALINE PHOSPHATASE 108 IU/L (46-116); ANION GAP 10 (8-16); ASPARTATE AMINO TRANSFERASE 25 U/L (10-37); BILIRUBIN,TOTAL 0.2 MG/DL (0.1-1.0); BLOOD UREA NITROGEN 12 MG/DL (7-18); BUN/CREATININE RATIO 8.9 (6.6-38.0); CALCIUM 9.4 MG/DL (8.5-10.1); CHLORIDE 105 MMOL/L (99-107); CREATININE 1.35 MG/DL (0.40-0.90); GLUCOSE 99 MG/DL (70-104); POTASSIUM 3.6 MMOL/L (3.5-5.1); SODIUM 140 MMOL/L (135-145); TOTAL CARBON DIOXIDE 24.7 MMOL/L (24-32); TOTAL PROTEIN 7.7 G/DL (6.4-8.2); eGFR 42 ML/MIN
[2021-01-07] MEDS ORDERED: normal saline 1000ml 1,000 ML IV ONE (18:00)
[2021-01-07] MEDS ORDERED: iohexol 350MG/ML 100ml bottle IV ONE (18:02)
[2021-01-07 19:46] VITALS: BP 127/53
== END 2021-01-07 19:49 | disposition home or self-care (01) ==
LOC: ER 14:58
DX: R07.89 Other chest pain (principal); G43.909 Migraine, unspecified, not intractable, without status migrainosus; E78.00 Pure hypercholesterolemia, unspecified; J45.909 Unspecified asthma, uncomplicated; E11.9 Type 2 diabetes mellitus without complications; G89.29 Other chronic pain; F41.9 Anxiety disorder, unspecified; R06.89 Other abnormalities of breathing; F32.9 Major depressive disorder, single episode, unspecified; F12.90 Cannabis use, unspecified, uncomplicated; Z90.49 Acquired absence of other specified parts of digestive tract; Z90.89 Acquired absence of other organs; Z98.890 Other specified postprocedural states; Z98.51 Tubal ligation status; Z72.89 Other problems related to lifestyle; Z88.6 Allergy status to analgesic agent; Z88.8 Allergy status to other drugs, medicaments and biological substances; Z79.899 Other long term (current) drug therapy
CPT/HCPCS: 36415; 71045; 71275; 80053; 83880; 84484; 85025; 85379; 93005; 96360; 99285; J7030; Q9967

== ENCOUNTER 2021-01-15 15:06 | Emergency (ER) | payer MEDICARE, MEDICAID ==
[~2021-01-15] VITALS: Ht 154.9 cm; Wt 59.1 kg
[2021-01-15 16:22] VITALS: BP 126/88
[2021-01-16] MEDS ORDERED: POTA10TA19 PO (16:20)
== END 2021-01-15 16:23 | disposition home or self-care (01) ==
LOC: ER 15:07
DX: G89.29 Other chronic pain (principal); M25.571 Pain in right ankle and joints of right foot; M25.471 Effusion, right ankle; G43.909 Migraine, unspecified, not intractable, without status migrainosus; E78.00 Pure hypercholesterolemia, unspecified; J45.909 Unspecified asthma, uncomplicated; E11.9 Type 2 diabetes mellitus without complications; F41.9 Anxiety disorder, unspecified; F32.9 Major depressive disorder, single episode, unspecified; F12.90 Cannabis use, unspecified, uncomplicated; F19.90 Other psychoactive substance use, unspecified, uncomplicated; Z87.01 Personal history of pneumonia (recurrent); Z87.440 Personal history of urinary (tract) infections; Z90.49 Acquired absence of other specified parts of digestive tract; Z98.51 Tubal ligation status; Z98.890 Other specified postprocedural states; Z72.89 Other problems related to lifestyle; Z88.8 Allergy status to other drugs, medicaments and biological substances; Z88.6 Allergy status to analgesic agent; Z79.2 Long term (current) use of antibiotics; Z79.899 Other long term (current) drug therapy
CPT/HCPCS: 73610; 99283

== ENCOUNTER 2021-01-16 10:11 | Emergency (ER) | payer MEDICARE, MEDICAID ==
[~2021-01-16] VITALS: Ht 154.9 cm; Wt 55.6 kg
[2021-01-16 11:12] LABS: BASOPHILS # (AUTO) 0.1 X10'3 (0-0.2); BASOPHILS % (AUTO) 0.3 % (0-1); EOSINOPHILS % (AUTO) 0 % (0-6); HEMATOCRIT 36.8 % (35.0-45.0); HEMOGLOBIN 12.1 g/dl (12.0-16.0); LYMPHOCYTES # (AUTO) 2.3 X10'3 (1.1-4.8); LYMPHOCYTES % (AUTO) 10.5 % (21-51); MEAN CORPUSCULAR HEMOGLOBIN 28.4 PG (27.0-31.0); MEAN CORPUSCULAR HGB CONC 32.8 g/dL (33.0-36.5); MEAN CORPUSCULAR VOLUME 86.6 FL (78-98); MEAN PLATELET VOLUME 7.3 FL (7.4-10.4); MONOCYTES # (AUTO) 1.1 X10'3 (0-0.9); MONOCYTES % (AUTO) 4.9 % (2-12); NEUTROPHILS # (AUTO) 18.7 X10'3 (1.8-7.7); NEUTROPHILS % (AUTO) 84.3 % (42-75); PLATELET COUNT 562 X10'3 (140-440); RED BLOOD COUNT 4.26 X10'6 (4.20-5.60); WHITE BLOOD COUNT 22.2 X10'3 (4.5-11.0)
[2021-01-16 11:26] LABS: ALANINE AMINOTRANSFERASE 15 U/L (12-78); ALBUMIN 4.5 G/DL (3.4-5.0); ALBUMIN/GLOBULIN RATIO 0.9 (1.1-1.5); ALKALINE PHOSPHATASE 135 IU/L (46-116); ANION GAP 21 (8-16); ASPARTATE AMINO TRANSFERASE 22 U/L (10-37); BILIRUBIN,TOTAL 0.5 MG/DL (0.1-1.0); BLOOD UREA NITROGEN 24 MG/DL (7-18); BUN/CREATININE RATIO 12.8 (6.6-38.0); CALCIUM 10.5 MG/DL (8.5-10.1); CHLORIDE 94 MMOL/L (99-107); CREATININE 1.88 MG/DL (0.40-0.90); GLUCOSE 268 MG/DL (70-104); LIPASE < 50 U/L (73-393); SODIUM 134 MMOL/L (135-145); TOTAL CARBON DIOXIDE 18.7 MMOL/L (24-32); TOTAL PROTEIN 9.4 G/DL (6.4-8.2); eGFR 29 ML/MIN
[2021-01-16 11:30] LABS: POTASSIUM 2.8 MMOL/L (3.5-5.1)
[2021-01-16] MEDS ORDERED: ringers solution, lactated 1000ml IV soln IV ONE (11:35)
[2021-01-16] MEDS ORDERED: ondansetron/PF 4mg/2ml inj IV ONE (11:35)
[2021-01-16] MEDS ORDERED: potassium Cl 20 mEq SR tablet PO ONE (11:35)
[2021-01-16] MEDS ORDERED: normal saline 1000ML IV soln IVB ONE (11:35)
[2021-01-16] MEDS ORDERED: haloperidol lactate 5mg/ml inj IM ONE ×3 (12:40→15:05)
[2021-01-16] MEDS ORDERED: proCHLORperazine 10 MG/2 ml inj IV ONE (14:20)
--- NOTE | 2021-01-16 14:33 | NUR ---
Unable to give PO meds due to nausea and vomiting, antiemetic ordered by PA and administered by RN.
[2021-01-16 14:36] LABS: CLARITY,URINE SLIGHTLY CLOUDY (Clear); COLOR,URINE STRAW (Yellow); GLUCOSE, URINE NEGATIVE (Neg); KETONES,URINE 15 mg/dl (Neg); LEUKOCYTE ESTERASE ,URINE NEGATIVE (Neg); NITRITES, URINE NEGATIVE (Neg); OCCULT BLOOD,URINE MODERATE (Neg); PH,URINE 5.5 (4.8-8.0); PROTEIN,URINE 100 mg/dl (Neg); URINE HCG NEGATIVE (NEG); UROBILINOGEN,URINE 0.2 E.U/dL (0.2-1.0)
[2021-01-16 14:43] LABS: UA COLLECTION TYPE CLN CATCH MIDSTREAM
[2021-01-16 14:54] LABS: MUCUS STRANDS MANY /LPF (Neg); SQUAMOUS EPITHELIAL CELL,UR MODERATE /LPF (FEW)
[2021-01-16 14:55] LABS: BACTERIA,URINE FEW /HPF (Neg); FINE GRANULAR CAST 0-3 /LPF (NEGATIVE); RBC,URINE 0-2 /HPF (0-2); WBC,URINE 0-4 /HPF (0-4)
[2021-01-16] MEDS ORDERED: LORazepam 2 mg/ml vial IV ONE (15:40)
[2021-01-16] MEDS ORDERED: metoclopramide 5 mg/ml inj IV ONE (15:40)
[2021-01-16] MEDS ORDERED: POTA10TA19 PO (16:20)
[2021-01-16 16:44] VITALS: BP 127/58
== END 2021-01-16 16:40 | disposition home or self-care (01) ==
LOC: ER 10:11
DX: E87.6 Hypokalemia (principal); R11.15 Cyclical vomiting syndrome unrelated to migraine; Z88.6 Allergy status to analgesic agent; Z88.8 Allergy status to other drugs, medicaments and biological substances; Z79.2 Long term (current) use of antibiotics; Z79.899 Other long term (current) drug therapy
CPT/HCPCS: 36415; 80053; 81001; 81025; 83690; 85025; 93005; 96372; 96374; 96375; 99285; J0780; J1630; J2060; J2405; J2765; J7030; J7120

== ENCOUNTER 2021-01-18 14:13 | Emergency (ER) | payer MEDICARE, MEDICAID ==
[~2021-01-18] VITALS: Ht 154.9 cm; Wt 59.1 kg
[~2021-01-18 14:13] MED LIST changes: +POTA10TA19 PO
[2021-01-18] MEDS ORDERED: haloperidol lactate 5mg/ml inj IM ONE (15:20)
[2021-01-18] MEDS ORDERED: ondansetron/PF 4mg/2ml inj IV ONE (15:20)
[2021-01-18] MEDS ORDERED: normal saline 1000ml 1,000 ML IV ONE (15:20)
[2021-01-18] MEDS ORDERED: diphenhydrAMINE 50 mg/ml inj IV ONE (15:20)
[2021-01-18 15:33] LABS: BASOPHILS # (AUTO) 0.1 X10'3 (0-0.2); BASOPHILS % (AUTO) 0.4 % (0-1); EOSINOPHILS % (AUTO) 0.2 % (0-6); HEMATOCRIT 32.9 % (35.0-45.0); HEMOGLOBIN 10.8 g/dl (12.0-16.0); LYMPHOCYTES # (AUTO) 3.2 X10'3 (1.1-4.8); LYMPHOCYTES % (AUTO) 25.8 % (21-51); MEAN CORPUSCULAR HEMOGLOBIN 28.3 PG (27.0-31.0); MEAN CORPUSCULAR HGB CONC 32.9 g/dL (33.0-36.5); MEAN CORPUSCULAR VOLUME 86.1 FL (78-98); MEAN PLATELET VOLUME 7.2 FL (7.4-10.4); MONOCYTES # (AUTO) 1.6 X10'3 (0-0.9); MONOCYTES % (AUTO) 12.6 % (2-12); NEUTROPHILS # (AUTO) 7.6 X10'3 (1.8-7.7); PLATELET COUNT 429 X10'3 (140-440); RED BLOOD COUNT 3.82 X10'6 (4.20-5.60); RED CELL DISTRIBUTION WIDTH 15.9 % (11.5-14.5); WHITE BLOOD COUNT 12.4 X10'3 (4.5-11.0)
[2021-01-18 15:54] LABS: ALANINE AMINOTRANSFERASE 16 U/L (12-78); ALBUMIN 3.8 G/DL (3.4-5.0); ALBUMIN/GLOBULIN RATIO 0.9 (1.1-1.5); ALKALINE PHOSPHATASE 104 IU/L (46-116); ANION GAP 14 (8-16); ASPARTATE AMINO TRANSFERASE 19 U/L (10-37); BILIRUBIN,TOTAL 0.5 MG/DL (0.1-1.0); BLOOD UREA NITROGEN 21 MG/DL (7-18); BUN/CREATININE RATIO 16.9 (6.6-38.0); CALCIUM 9.7 MG/DL (8.5-10.1); CHLORIDE 95 MMOL/L (99-107); CREATININE 1.24 MG/DL (0.40-0.90); GLUCOSE 93 MG/DL (70-104); SODIUM 133 MMOL/L (135-145); TOTAL CARBON DIOXIDE 24.3 MMOL/L (24-32); TOTAL PROTEIN 8.1 G/DL (6.4-8.2); eGFR 46 ML/MIN
[2021-01-18 15:56] LABS: POTASSIUM 2.6 MMOL/L (3.5-5.1)
[2021-01-18] MEDS ORDERED: POTASSIUM BICARB 20meq eff tab 20 MEQ TABLET.EFF PO ONE ×2 (16:10)
[2021-01-18] MEDS ORDERED: potassium Cl 10 mEq/100mL bag IV ONE (16:10)
--- NOTE | 2021-01-18 16:36 | NUR ---
pt is feeling nausous again will ask provider for more meds, k started, will continue to monitor
[2021-01-18] MEDS ORDERED: proCHLORperazine 10mg tablet PO ONE (16:40)
[2021-01-18] MEDS ORDERED: LIDOcaine Viscous 15ml cup MM PRN (16:45)
[2021-01-18] MEDS ORDERED: mag hydrox/Alum hydrox/simeth 30ml oral suspension PO ONE (16:45)
[2021-01-18] MEDS ORDERED: proCHLORperazine 10 MG/2 ml inj IV ONE (17:10)
--- NOTE | 2021-01-18 17:20 | NUR ---
gave pt compazine for nausea and maloxx but told pt to wait to take the maloxx until compazine takes effect. pt did not listen and drank some of the maloxx and threw it right up. she was told to wait to drin the rest, will continue to monitor
--- NOTE | 2021-01-18 17:23 | NUR ---
pts visitor was told that she cannot keep coming and going that she needs to stay with patient and if she does need to leave again so can wait to be called once pt is discharged.
[2021-01-18] MEDS ORDERED: POTA10TA19 PO (18:18)
[2021-01-18] MEDS ORDERED: PANT-47 PO (18:18)
[2021-01-18] MEDS ORDERED: ONDA4TAB6 PO (18:18)
[2021-01-18 18:31] VITALS: BP 131/63
== END 2021-01-18 18:35 | disposition home or self-care (01) ==
LOC: ER 14:14
DX: K29.00 Acute gastritis without bleeding (principal); R11.2 Nausea with vomiting, unspecified; R10.84 Generalized abdominal pain; E87.6 Hypokalemia; G43.909 Migraine, unspecified, not intractable, without status migrainosus; E78.00 Pure hypercholesterolemia, unspecified; J45.909 Unspecified asthma, uncomplicated; E11.9 Type 2 diabetes mellitus without complications; G89.29 Other chronic pain; F41.9 Anxiety disorder, unspecified; F32.9 Major depressive disorder, single episode, unspecified; F12.90 Cannabis use, unspecified, uncomplicated; F19.90 Other psychoactive substance use, unspecified, uncomplicated; Z87.01 Personal history of pneumonia (recurrent); Z87.440 Personal history of urinary (tract) infections; Z90.49 Acquired absence of other specified parts of digestive tract; Z98.51 Tubal ligation status; Z98.890 Other specified postprocedural states; Z72.89 Other problems related to lifestyle; Z88.8 Allergy status to other drugs, medicaments and biological substances; Z79.899 Other long term (current) drug therapy
CPT/HCPCS: 36415; 80053; 85025; 96361; 96365; 96372; 96375; 99285; J0780; J1200; J1630; J2405; J3480; J7030; 96374

== ENCOUNTER 2021-01-29 10:41 | Emergency (ER) | payer MEDICARE, MEDICAID ==
[~2021-01-29] VITALS: Ht 154.9 cm; Wt 61.4 kg
[~2021-01-29 10:41] MED LIST changes: +ONDA4TAB6 PO
[2021-01-29] MEDS ORDERED: normal saline 1000ml 1,000 ML IV ONE ×2 (11:15→12:05)
[2021-01-29] MEDS ORDERED: ondansetron/PF 4mg/2ml inj IV ONE (11:30)
[2021-01-29 11:40] LABS: BASOPHILS # (AUTO) 0.1 X10'3 (0-0.2); BASOPHILS % (AUTO) 1.1 % (0-1); EOSINOPHILS # (AUTO) 0.1 X10'3 (0-0.9); HEMATOCRIT 37.7 % (35.0-45.0); HEMOGLOBIN 12.1 g/dl (12.0-16.0); LYMPHOCYTES # (AUTO) 2.3 X10'3 (1.1-4.8); LYMPHOCYTES % (AUTO) 28.4 % (21-51); MEAN CORPUSCULAR HEMOGLOBIN 28.2 PG (27.0-31.0); MEAN CORPUSCULAR HGB CONC 32.1 g/dL (33.0-36.5); MEAN CORPUSCULAR VOLUME 87.9 FL (78-98); MEAN PLATELET VOLUME 7.3 FL (7.4-10.4); MONOCYTES # (AUTO) 0.8 X10'3 (0-0.9); MONOCYTES % (AUTO) 10.2 % (2-12); NEUTROPHILS # (AUTO) 4.8 X10'3 (1.8-7.7); NEUTROPHILS % (AUTO) 59.3 % (42-75); PLATELET COUNT 452 X10'3 (140-440); RED BLOOD COUNT 4.29 X10'6 (4.20-5.60); RED CELL DISTRIBUTION WIDTH 15.6 % (11.5-14.5); WHITE BLOOD COUNT 8.2 X10'3 (4.5-11.0)
[2021-01-29 12:01] LABS: ALANINE AMINOTRANSFERASE 18 U/L (12-78); ALBUMIN 3.9 G/DL (3.4-5.0); ALBUMIN/GLOBULIN RATIO 0.9 (1.1-1.5); ALKALINE PHOSPHATASE 121 IU/L (46-116); ANION GAP 14 (8-16); ASPARTATE AMINO TRANSFERASE 15 U/L (10-37); BILIRUBIN,TOTAL 0.4 MG/DL (0.1-1.0); BLOOD UREA NITROGEN 23 MG/DL (7-18); BUN/CREATININE RATIO 20.5 (6.6-38.0); CALCIUM 9.9 MG/DL (8.5-10.1); CHLORIDE 101 MMOL/L (99-107); CREATININE 1.12 MG/DL (0.40-0.90); GLUCOSE 103 MG/DL (70-104); LIPASE 111 U/L (73-393); POTASSIUM 3.6 MMOL/L (3.5-5.1); SODIUM 136 MMOL/L (135-145); TOTAL PROTEIN 8.1 G/DL (6.4-8.2); eGFR 52 ML/MIN
[2021-01-29] MEDS ORDERED: LIDOcaine Viscous 15ml cup MM ONE (12:05)
[2021-01-29] MEDS ORDERED: diphenhydrAMINE 50 mg/ml inj IV ONE (12:05)
[2021-01-29] MEDS ORDERED: proCHLORperazine 10 MG/2 ml inj IV ONE (12:05)
[2021-01-29] MEDS ORDERED: mag hydrox/Alum hydrox/simeth 30ml oral suspension PO ONE (12:05)
[2021-01-29] MEDS ORDERED: PROC25SU31 RC (12:22)
[2021-01-29 13:37] VITALS: BP 114/59
[2021-01-29 13:48] LABS: CLARITY,URINE SLIGHTLY CLOUDY (Clear); COLOR,URINE YELLOW (Yellow); GLUCOSE, URINE NEGATIVE (Neg); KETONES,URINE 40 mg/dl (Neg); LEUKOCYTE ESTERASE ,URINE NEGATIVE (Neg); NITRITES, URINE NEGATIVE (Neg); OCCULT BLOOD,URINE TRACE-INTACT (Neg); PROTEIN,URINE TRACE mg/dl (Neg)
[2021-01-29 13:52] LABS: URINE HCG NEGATIVE (NEG)
[2021-01-29 13:56] LABS: UA COLLECTION TYPE CLN CATCH MIDSTREAM
[2021-01-29 14:01] LABS: BACTERIA,URINE FEW /HPF (Neg); MUCUS STRANDS MODERATE /LPF (Neg); RBC,URINE 0-2 /HPF (0-2); SQUAMOUS EPITHELIAL CELL,UR MANY /LPF (FEW)
== END 2021-01-29 13:37 | disposition home or self-care (01) ==
LOC: ER 10:43
DX: R11.2 Nausea with vomiting, unspecified (principal); G43.909 Migraine, unspecified, not intractable, without status migrainosus; E78.00 Pure hypercholesterolemia, unspecified; J45.909 Unspecified asthma, uncomplicated; E11.9 Type 2 diabetes mellitus without complications; I25.10 Atherosclerotic heart disease of native coronary artery without angina pectoris; F12.90 Cannabis use, unspecified, uncomplicated; G89.29 Other chronic pain; Z87.440 Personal history of urinary (tract) infections; Z87.01 Personal history of pneumonia (recurrent); Z86.19 Personal history of other infectious and parasitic diseases; Z90.49 Acquired absence of other specified parts of digestive tract; Z98.891 History of uterine scar from previous surgery; Z98.51 Tubal ligation status; Z72.89 Other problems related to lifestyle; Z88.8 Allergy status to other drugs, medicaments and biological substances; Z79.2 Long term (current) use of antibiotics; Z79.899 Other long term (current) drug therapy
CPT/HCPCS: 36415; 80053; 81001; 81025; 83690; 85025; 96361; 96374; 96375; 99284; J0780; J1200; J2405; J7030; 96365

== ENCOUNTER 2021-03-29 10:43 | Emergency (ER) | payer MEDICARE, MEDICAID ==
[~2021-03-29] VITALS: Ht 154.9 cm; Wt 57.3 kg
[~2021-03-29 10:43] MED LIST changes: -POTA10TA19 PO
[2021-03-29] MEDS ORDERED: HYDROcodone/acetaminophen 5mg/325mg tablet PO ONE (12:30)
[2021-03-29 12:51] VITALS: BP 132/69
== END 2021-03-29 12:50 | disposition home or self-care (01) ==
LOC: ER 10:44
DX: S90.31XA Contusion of right foot, initial encounter (principal); M25.571 Pain in right ankle and joints of right foot; G43.909 Migraine, unspecified, not intractable, without status migrainosus; E78.00 Pure hypercholesterolemia, unspecified; J45.909 Unspecified asthma, uncomplicated; E11.9 Type 2 diabetes mellitus without complications; G89.29 Other chronic pain; F41.9 Anxiety disorder, unspecified; F32.9 Major depressive disorder, single episode, unspecified; F12.90 Cannabis use, unspecified, uncomplicated; F19.90 Other psychoactive substance use, unspecified, uncomplicated; Z87.01 Personal history of pneumonia (recurrent); Z87.440 Personal history of urinary (tract) infections; Z90.49 Acquired absence of other specified parts of digestive tract; Z98.51 Tubal ligation status; Z90.89 Acquired absence of other organs; Z98.890 Other specified postprocedural states; Z72.89 Other problems related to lifestyle; Z88.8 Allergy status to other drugs, medicaments and biological substances; Z88.6 Allergy status to analgesic agent; Z79.899 Other long term (current) drug therapy; W19.XXXA Unspecified fall, initial encounter; Y93.89 Activity, other specified; Y92.89 Other specified places as the place of occurrence of the external cause; Y99.8 Other external cause status
CPT/HCPCS: 73630; 99284

== ENCOUNTER 2021-09-04 09:45 | Emergency (ER) | payer BC, MEDICAID ==
[~2021-09-04] VITALS: Ht 154.9 cm; Wt 65.6 kg
[2021-09-04 09:59] VITALS: BP 120/77
[2021-09-04] MEDS ORDERED: PROM25SU9 RC (11:39)
== END 2021-09-04 12:27 | disposition home or self-care (01) ==
LOC: ER 09:46
DX: E11.43 Type 2 diabetes mellitus with diabetic autonomic (poly)neuropathy (principal); G43.909 Migraine, unspecified, not intractable, without status migrainosus; E78.00 Pure hypercholesterolemia, unspecified; J45.909 Unspecified asthma, uncomplicated; G89.29 Other chronic pain; F12.90 Cannabis use, unspecified, uncomplicated; Z87.81 Personal history of (healed) traumatic fracture; Z90.49 Acquired absence of other specified parts of digestive tract; Z90.89 Acquired absence of other organs; Z98.890 Other specified postprocedural states; Z72.89 Other problems related to lifestyle; Z98.51 Tubal ligation status; Z88.5 Allergy status to narcotic agent; Z88.8 Allergy status to other drugs, medicaments and biological substances; Z79.899 Other long term (current) drug therapy; Z79.2 Long term (current) use of antibiotics
CPT/HCPCS: 99283

== ENCOUNTER 2023-10-10 12:34 | Emergency (ER) | payer OTHER, MEDICAID ==
[~2023-10-10] VITALS: Ht 157.5 cm; Wt 60.4 kg
[~2023-10-10 12:34] MED LIST changes: -LEVO750T46 PO; +LEVO750T68 PO; +PROM25SU9 RC
[2023-10-10] MEDS ORDERED: HYDROcodone/acetaminophen 10/325mg tab PO ONE (15:10)
[2023-10-10] MEDS ORDERED: HYDR-3973 PO (15:12)
[2023-10-10 16:26] VITALS: BP 112/68; PULSE 78; RESP 16; TEMP 97.6; O2SAT 97
== END 2023-10-10 16:32 | disposition home or self-care (01) ==
LOC: ER 12:35
DX: S62.617A Displaced fracture of proximal phalanx of left little finger, initial encounter for closed fracture (principal); G43.909 Migraine, unspecified, not intractable, without status migrainosus; E78.00 Pure hypercholesterolemia, unspecified; J45.909 Unspecified asthma, uncomplicated; E11.9 Type 2 diabetes mellitus without complications; F17.200 Nicotine dependence, unspecified, uncomplicated; F12.90 Cannabis use, unspecified, uncomplicated; Z79.82 Long term (current) use of aspirin; Z88.8 Allergy status to other drugs, medicaments and biological substances; Z79.2 Long term (current) use of antibiotics; Z79.899 Other long term (current) drug therapy; Z90.49 Acquired absence of other specified parts of digestive tract; Z98.890 Other specified postprocedural states; Z98.51 Tubal ligation status; X58.XXXA Exposure to other specified factors, initial encounter; Y93.89 Activity, other specified; Y92.89 Other specified places as the place of occurrence of the external cause; Y99.8 Other external cause status
CPT/HCPCS: 29125; 73130; 99283; A6449